=== PATIENT | female | born 1935 | race Caucasian/White ===

== ENCOUNTER 2017-11-06 13:53 | Outpatient (CLI) | payer MEDICARE, BC | END 2017-11-06 13:54 | disposition home or self-care (01) | LOC: BICMAMMO 13:53 | PROVIDERS: ATTEND Family Medicine | DX: Z13.820 Encounter for screening for osteoporosis (principal); M25.551 Pain in right hip; M51.36 Other intervertebral disc degeneration, lumbar region | CPT/HCPCS: 77080 ==

== ENCOUNTER 2017-12-11 18:11 | Emergency (ER) | payer MEDICARE, BC ==
[2017-12-11 19:40] LABS: #Basophils 0.1 thou/uL (0.0-0.2); #Eosinphils 0.4 thou/uL (0.0-0.7); #Lymphocytes 3.9 thou/uL (1.20-3.40); #Monocytes 0.8 thou/uL (0.11-0.59); #Neutrophils 9.4 thou/uL (1.40-6.50); %Basophils 0.8 % (0.0-1.0); %Eosinophils 2.7 % (0.0-10.0); %Lymphocytes 26.7 % (21.0-51.0); %Monocytes 5.7 % (0.0-10.0); Hemoglobin 13.5 g/dL (12.0-16.0); Mean Corpuscular HGB CONC 33.3 g/dL (32.0-36.0); Mean Corpuscular Hemoglobin 30.2 pg (27.0-31.0); Mean Corpuscular Volume 90.7 fL (78.0-98.0); Mean Platelet Volume 6.4 fL (7.4-10.4); Platelet Count 452 thou/uL (130-400); RBC Distribution Width 13.7 % (11.5-14.5); Red Blood Cell (RBC) Count 4.47 mill/uL (4.20-5.40); White Blood Cell (WBC) Count 14.6 thou/uL (4.8-10.8)
[2017-12-11 20:00] LABS: ALT (SGPT) 33 U/L (8-55); AST (SGOT) 49 U/L (5-34); Albumin 3.9 g/dL (3.4-4.8); Alcohol 224 mg/dL (Less than 10); Alkaline Phosphatase 86 U/L (40-150); Anion Gap 16 mmol/L (10-20); BUN (Urea Nitrogen) 24 mg/dL (9.8-20.1); Bilirubin, Total 0.4 mg/dL (0.2-1.2); Calc. Creatinine Clearance 0 mL/min (70-130); Calcium 9.5 mg/dL (7.8-10.44); Carbon Dioxide 20 mmol/L (23-31); Chloride 107 mmol/L (98-107); Estimated GFR-MDRD 57; Globulin 3.4 g/dL (2.4-3.5); Glucose 81 mg/dL (83-110); Potassium 3.2 mmol/L (3.5-5.1); Protein, Total 7.3 g/dL (6.0-8.3)
[2017-12-11 20:11] LABS: Sodium 140 mmol/L (136-145)
--- NOTE | 2017-12-11 20:13 | CT ---
CT OF THE BRAIN WITHOUT CONTRAST: 12/11/17 COMPARISON: 08/25/16 HISTORY: Slipped and fell leaning over and landed on the right side. Head trauma. TECHNIQUE: Multiple contiguous axial images were obtained in a CT of the brain without contrast. FINDINGS: There are a few scattered hypodensities in the subcortical and periventricular white matter, likely s econdary to small vessel ischemic disease. No large confluent infarction is seen. There is no evidenc e of hydrocephalus, intracranial hemorrhage or extra-axial fluid collection. The calvarium and overlying soft tissues are unremarkable. The visualized paranasal sinuses and masto id air cells are well aerated. IMPRESSION: No evidence of acute intracranial abnormality. POS: [facility]
--- NOTE | 2017-12-11 20:17 | CT ---
CT OF THE CERVICAL SPINE WITHOUT CONTRAST: 12/11/17 COMPARISON: None. HISTORY: Slipped and fell with head trauma and neck pain. TECHNIQUE: Multiple contiguous axial images were obtained in a CT of the cervical spine without contrast. Sagitt al and coronal reformats were performed. FINDINGS: There is severe degenerative changes in the cervical spine with intervertebral disc space narrowing a nd large osteophytes, predominantly anteriorly. The vertebral bodies demonstrate normal height and al ignment without acute fracture or subluxation. No prevertebral soft tissue swelling is seen. The posterior facets are well aligned. Normal alignment of the skull base with the cervical spine is seen. IMPRESSION: Degenerative changes of the cervical spine without acute osseous abnormality. POS: [facility]
--- NOTE | 2017-12-11 21:05 | RAD ---
ONE VIEW CHEST RIGHT RIB SERIES 12/11/17 HISTORY: Patient slipped while leaning over. Posttraumatic right sided rib pain. COMPARISON: None. CORRELATION: Chest radiograph 08/21/16. FINDINGS: There appear to be chronic change involving the proximal right humerus. With regard to the right ribs , no obvious fracture. Refer to right rib radiograph series listed below for further detail. Diminish ed lung volumes likely due to poor inspiratory effort. No consolidation or mass. No pneumothorax. No acute osseous abnormalities. RIGHT RIB SERIES: No fracture. No cortical irregularity. No periosteal reaction. Old right rib fracture involving the anterior right 8th rib is noted. IMPRESSION: 1. No acute cardiopulmonary process. 2. No acute right rib fracture. POS: [facility]
== END 2017-12-11 23:07 | disposition home or self-care (01) ==
LOC: ERS 18:11
DX: F10.129 Alcohol abuse with intoxication, unspecified (principal); R07.2 Precordial pain; M19.90 Unspecified osteoarthritis, unspecified site; E03.9 Hypothyroidism, unspecified; E78.5 Hyperlipidemia, unspecified; I10 Essential (primary) hypertension
CPT/HCPCS: 36415; 70450; 72125; 80053; 80307; 85025; 93005; 94760

== ENCOUNTER 2018-06-07 14:19 | Outpatient (CLI) | payer MEDICARE, BC ==
--- NOTE | 2018-06-07 15:55 | ULT ---
BILATERAL CAROTID DUPLEX ULTRASOUND: HISTORY: Carotid bruit. TECHNIQUE: Cannon-scale, color-flow, and spectral Doppler imaging of the extracranial carotid artery system is per formed bilaterally. FINDINGS: No significant plaque formation or intimal wall thickening is seen. The peak systolic velocity in the right ICA measures 70 cm per second with an end-diastolic velocity of 21 cm per second and a systolic ratio of 0.61. The peak systolic velocity in the left ICA measure s 96 cm per second with an end-diastolic velocity of 32 cm per second and a systolic ratio of 0.90. Flow in both vertebral arteries remains antegrade. IMPRESSION: No evidence of hemodynamically significant stenosis. POS: [facility]
--- NOTE | 2018-06-10 13:42 | MMO ---
Bilateral MAMMO Bilat Screen [facility]. CLINICAL HISTORY: Patient is 83 years old and is seen for screening. The patient has no family history of breast cancer. The patient has no personal history of cancer. VIEWS: The views performed were: bilateral craniocaudal with tomosynthesis and bilateral mediolateral oblique with tomosynthesis. FILMS COMPARED: The present examination has been compared to prior imaging studies performed at [facility] on 12/07/1999, 01/15/2002, 01/29/2006, 08/05/2007, 12/22/2008, 07/25/2013, 09/02/2014 and 10/07/2015. MAMMOGRAM FINDINGS: There are scattered fibroglandular densities. Benign calcifications are noted bilaterally. There are no suspicious masses, calcifications or areas of architectural distortion. IMPRESSION: FINDINGS IN BOTH BREASTS ARE BENIGN. A ROUTINE FOLLOW-UP MAMMOGRAM IN 1 YEAR IS RECOMMENDED. THE RESULTS OF THIS EXAM WERE SENT TO THE PATIENT. ACR BI-RADS Category 2 - Benign finding MAMMOGRAPHY NOTE: 1. A negative mammogram report should not delay a biopsy if a dominant of clinically suspicious mass is present. 2. Approximately 10% to 15% of breast cancers are not detected by mammography. 3. Adenosis and dense breasts may obscure an underlying neoplasm.
== END 2018-06-07 14:20 | disposition home or self-care (01) ==
LOC: BICMAMMO 14:19
PROVIDERS: ATTEND Family Medicine
DX: Z12.31 Encounter for screening mammogram for malignant neoplasm of breast (principal); R09.89 Other specified symptoms and signs involving the circulatory and respiratory systems
CPT/HCPCS: 77063; 77067; 93880

== ENCOUNTER 2018-12-27 11:33 | Inpatient (IN) | payer MEDICARE, BC ==
[2018-12-27 11:57] LABS: Bilirubin Small (Negative); Blood, Urine Negative (Negative); Glucose, Urine (Dipstick) Negative (Negative); Leukocyte Moderate (Negative); Nitrite Negative (Negative); Protein, Urine (Dipstick) Trace mg/dL (Neg-Trace)
[2018-12-27 12:05] LABS: Clarity Hazy (Clear)
[2018-12-27 12:08] LABS: Bacteria/HPF 1+ HPF (None Seen); RBC/HPF None Seen HPF (0-3); Squamous Epithelial 0-3 HPF (0-3)
--- NOTE | 2018-12-27 12:08 | RAD ---
Exam: Chest one view HISTORY:Syncope Comparison: 08/21/2016 FINDINGS: Cardiac silhouette: Normal Aorta: Unremarkable Pulmonary vessels: Normal Costophrenic angles: Clear LUNGS: No masses or consolidation. Pneumothorax: None Osseous abnormalities: Chronic changes in the proximal right humerus IMPRESSION: No acute cardiopulmonary process.
[2018-12-27] MEDS ORDERED: ISOVUE-370 76%-LOCM 1 ML ONE (12:10)
--- NOTE | 2018-12-27 13:09 | CT ---
CT HEAD WITHOUT CONTRAST: Date: 12/27/18 COMPARISON: None. HISTORY: Syncope. TECHNIQUE: Axial CT imaging at 5 mm intervals from vertex through skull base without contrast. FINDINGS: The visualized paranasal sinuses and mastoid air cells are well aerated. No displaced calvarial fract ure. No intracranial hemorrhage, midline shift, mass effect, or ventricular enlargement. Mild diffuse cerebral volume loss. IMPRESSION: No acute findings. POS: [facility]
--- NOTE | 2018-12-27 13:31 | CT ---
CERVICAL SPINE CT WITHOUT CONTRAST: Date: 12/27/18 COMPARISON: None. HISTORY: Syncope. TECHNIQUE: Axial CT imaging obtained at 2.5 mm intervals through cervical spine with coronal and sagittal reform atted imaging. FINDINGS: The imaged lung apices are unremarkable. The C1 ring appears intact. There is mild degenerative change at the atlantoaxial interspace. The occipital condyles, the dens, and the C1-2 articulation appear within normal limits. There is no significant anterolisthesis or retrolisthesis within the cervical spine. No prevertebral soft tissue swelling is noted. Evaluation for central canal and/or neural foraminal stenosis is limited on CT examination. Multilevel facet hypertrophy is noted within the cervical spine, particularly on the left at C2-3, C3 -4, and C4-5. There is disc space narrowing with degenerative end plate change and anterior osteophyte formation at C5-6 and C6-7. No acute fracture or evidence of dislocation is apparent. IMPRESSION: Multilevel cervical spine degenerative change. No acute fracture or evidence of dislocation is appare nt. POS: [facility]
[2018-12-27 13:38] LABS: #Eosinphils 0.5 thou/uL (0.0-0.7); #Lymphocytes 1.8 thou/uL (1.20-3.40); #Monocytes 0.8 thou/uL (0.11-0.59); #Neutrophils 7.8 thou/uL (1.40-6.50); %Basophils 0.4 % (0.0-1.0); %Monocytes 7.4 % (0.0-10.0); %Neutrophils 71.3 % (42.0-75.0); Hemoglobin 11.1 g/dL (12.0-16.0); Mean Corpuscular Hemoglobin 28.7 pg (27.0-31.0); Mean Platelet Volume 6.7 fL (7.4-10.4); Platelet Count 275 thou/uL (130-400); RBC Distribution Width 13.1 % (11.5-14.5); Red Blood Cell (RBC) Count 3.87 mill/uL (4.20-5.40)
[2018-12-27] MEDS ORDERED: Lidocaine 1% w/Epinephrine 1:100K 20 ML VIAL ONE (13:40)
[2018-12-27 14:00] LABS: ALT (SGPT) 16 U/L (8-55); AST (SGOT) 21 U/L (5-34); Albumin 3.4 g/dL (3.4-4.8); Alkaline Phosphatase 83 U/L (40-110); Anion Gap 13 mmol/L (10-20); BUN (Urea Nitrogen) 23 mg/dL (9.8-20.1); Bilirubin, Total 0.6 mg/dL (0.2-1.2); Calc. Creatinine Clearance 0 mL/min (70-130); Calcium 8.9 mg/dL (7.8-10.44); Carbon Dioxide 22 mmol/L (23-31); Chloride 108 mmol/L (98-107); Estimated GFR-MDRD 54; Globulin 2.2 g/dL (2.4-3.5); Glucose 90 mg/dL (83-110); Protein, Total 5.6 g/dL (6.0-8.3); Sodium 139 mmol/L (136-145)
--- NOTE | 2018-12-27 14:13 | PDOC.FPRHP ---
- History of Present Illness Chief Complaint: Syncope History of Present Illness: 83 yo F, with a PMHx of HTN, HLD, YVAN, and Hypothyroidism, presents following syncopal episode just [employer]. Pt was at [employer] [place] and while checking out she started to feel as though she was going to faint. Before she could sit down she lost consciousness and fell. Pt's caregiver witnessed the fall and stated the pt struck the back of her head and was unconscious for about 5 seconds. Pt felt dizzy and light headed after syncopal event. When the EMS sat her up off the floor she stated her lightheadedness was exacerbated where she felt faint again. Denies hx of syncopal episodes. Pt states that she did not take her daily medications yet today or have breakfast due to an early eye doctor appointment. Denies feeling unwell prior to this episode and denies any CP, SOB, palpitations. ED Course: Posterior scalp lac repaired with page x3. Head and cervical spine CT w/o acute abnormalities. CXR WNL. BUN/Cr ratio of 23. UA significant for +leukocytes , ketones, and bilirubin. Hgb 11.1 (baseline from 6mo prior = 13), Positive orthostatic BP findings. Paged at 1536 from the ED regarding decompensation of patient. She developed bradycardia and hypotension having undetectable BP readings from the ED. She was given Atropine, Epinephrine and shocked once. Patient was then intubated. Patient's pulse Pulse was palpable, but not matching with the electrical tracing per the ED physician. Central line was started and patient sent to CTA to evaluate for suspected PE. Vitals post interventions at 1558: BP 122/81, RR 24, HR 133, O2 saturation untraceable. - Allergies/Adverse Reactions Allergies Allergy/AdvReac Type Severity Reaction Status Date / Time No Known Drug Allergies Allergy Verified 08/21/16 23:54 - Home Medications Medication Instructions Recorded Confirmed Type Clobetasol Propionate [Clobetasol 1 applic TOP DAILY PRN 08/22/16 12/27/18 History Propionate 0.05% Cream] Fluconazole 150 mg PO DAILY PRN 08/22/16 12/27/18 History Ketoconazole [Ketoconazole 2% 1 applic TOP DAILY PRN 08/22/16 12/27/18 History Cream] Tolterodine Tartrate [Tolterodine 4 mg PO DAILY 08/22/16 12/27/18 History Tartrate ER] Alendronate Sodium [Fosamax] 70 mg PO Q7DAYS 12/27/18 12/27/18 History Atorvastatin Calcium [Lipitor] 1 tab PO DAILY 12/27/18 12/27/18 History Diclofenac Sodium [Diclofenac 1 gm TOP Q6H PRN 12/27/18 12/27/18 History Sodium 1% Gel] HYDROcodone Bit/APAP 5/325 [[place]] 1 tab PO Q6HR PRN 12/27/18 12/27/18 History Levothyroxine [Synthroid] 200 mcg PO DAILY 12/27/18 12/27/18 History Lisinopril/Hydrochlorothiazide 1 tab PO DAILY 12/27/18 12/27/18 History [Lisinopril-Hctz 20-25 mg Tab] Metoprolol Succinate 1 tab PO DAILY 12/27/18 12/27/18 History Nitrofurantoin Monohyd/M-Cryst 1 tab PO BID PRN 12/27/18 12/27/18 History [Macrobid 100 mg Capsule] - History PMHx: HTN, HLD, hypothyroid, urge incontinence, YVAN, osteoarthritis, osteoporosis PSHx: Cholecystectomy, tonsillectomy, right elbow surgery FHx: Brother: DM Social: Denies any tobacco or drug use, occasional glass of wine - Review of Systems General: denies: fever/chills, fatigue Eyes: denies: eye pain, vision changes ENT: denies: nasal congestion, rhinorrhea Respiratory: denies: cough, shortness of breath Cardiovascular: denies: chest pain, palpitation, edema Gastrointestinal: denies: nausea, vomiting, diarrhea, abdominal pain, GI bleeding Genitourinary: denies: dysuria, polyuria Skin: reports: lesions (occipital scalp laceration). denies: rashes Musculoskeletal: reports: pain, arthritis/arthralgias (bilateral knee pain. Back pain.). denies: tenderness, swelling Neurological: reports: syncope, weakness. denies: seizure Psychological: denies: anxiety, depression - Vital signs BP: 118/80 HR: 65 RR: 15 Tmax: 97.7 Pox: 100% on RA Wt: 67 kg PE done on original assessment of patient before major cardiac event. - Physical Exam Constitutional: NAD, awake, alert and oriented, well developed HEENT: PERRLA, EOMI, conjunctiva clear, no scleral icterus, grossly normal vision -HEENT: dry mucus membranes Neck: supple, FROM, trachea midline, no LAD, no JVD Chest: no-tender to palpation, no lesions Heart: RRR, normal S1/S2 (distant heart sounds.), no murmurs/rubs/gallops, pulses present, no edema Lungs: CTAB, no respiratory distress, good air movement, no rales/rhonchi, no wheezing Abdomen: soft, non-tender, bowel sounds present Musculoskeletal: normal structure, normal tone, ROM grossly normal Neurological: no focal deficit, CN II-XII intact, normal sensation Skin: no rash/lesions, good turgor, capillary refill <2 seconds, no jaundice -Skin: 2cm scalp laceration to occiput w/ 3 page - hemostatic Heme/Lymphatic: no unusual bruising or bleeding, no purpura, no petechia Psychiatric: normal mood and affect, good judgment and insight, intact recent and remote memory FMR H&P: Results - Labs Result Diagrams: 12/27/18 16:48 12/27/18 22:41 Lab results: WBC 11.0 thou/uL (4.8-10.8) H 12/27/18 13:23 Hgb 11.1 g/dL (12.0-16.0) L 12/27/18 13:23 Hct 33.7 % (36.0-47.0) L 12/27/18 13:23 MCV 87.0 fL (78.0-98.0) 12/27/18 13:23 Plt Count 275 thou/uL (130-400) 12/27/18 13:23 Neutrophils % 71.3 % (42.0-75.0) 12/27/18 13:23 Sodium 139 mmol/L (136-145) 12/27/18 13:23 Potassium 4.0 mmol/L (3.5-5.1) 12/27/18 13:23 Chloride 108 mmol/L (98-107) H 12/27/18 13:23 Carbon Dioxide 22 mmol/L (23-31) L 12/27/18 13:23 BUN 23 mg/dL (9.8-20.1) H 12/27/18 13:23 Creatinine 0.98 mg/dL (0.6-1.1) 12/27/18 13:23 Glucose 90 mg/dL (83-110) 12/27/18 13:23 Calcium 8.9 mg/dL (7.8-10.44) 12/27/18 13:23 Total Bilirubin 0.6 mg/dL (0.2-1.2) 12/27/18 13:23 AST 21 U/L (5-34) 12/27/18 13:23 ALT 16 U/L (8-55) 12/27/18 13:23 Alkaline Phosphatase 83 U/L (40-110) 12/27/18 13:23 Serum Total Protein 5.6 g/dL (6.0-8.3) L 12/27/18 13:23 Albumin 3.4 g/dL (3.4-4.8) 12/27/18 13:23 Urine Ketones 15 mg/dL (Negative) A 12/27/18 11:40 Urine Blood Negative (Negative) 12/27/18 11:40 Urine Nitrite Negative (Negative) 12/27/18 11:40 Ur Leukocyte Esterase Moderate (Negative) H 12/27/18 11:40 Urine RBC None Seen HPF (0-3) 12/27/18 11:40 Urine WBC 4-6 HPF (0-3) A 12/27/18 11:40 Ur Squamous Epith Cells 0-3 HPF (0-3) 12/27/18 11:40 Urine Bacteria 1+ HPF (None Seen) 12/27/18 11:40 - EKG Interpretation EKG: NRS, HR 73, QTc 425, borderline LAD, inverted T wave in precordial leads V3-5. Baseline artifact noted. - Radiology Interpretation Chest x-ray Status: report reviewed by me (No acute process) CT scan - head Status: report reviewed by me (No acute findings) Other Status: report reviewed by me (Multilevel spinal degenerative changes. No acute fracture or dislocation.) Additional comment: CT neck FMR H&P: A/P - Problem List (1) Cardiogenic shock Current Visit: Yes Status: Acute Code(s): R57.0 - CARDIOGENIC SHOCK (2) Bradycardia Current Visit: Yes Status: Acute Code(s): R00.1 - BRADYCARDIA, UNSPECIFIED (3) Arrhythmia Current Visit: Yes Status: Acute Code(s): I49.9 - CARDIAC ARRHYTHMIA, UNSPECIFIED (4) Orthostatic hypotension Current Visit: Yes Status: Acute Code(s): I95.1 - ORTHOSTATIC HYPOTENSION (5) Acute respiratory failure with hypoxia Current Visit: Yes Status: Acute Code(s): J96.01 - ACUTE RESPIRATORY FAILURE WITH HYPOXIA (6) HTN (hypertension) Current Visit: No Status: Acute Code(s): I10 - ESSENTIAL (PRIMARY) HYPERTENSION (7) Hypothyroidism Current Visit: Yes Status: Acute Code(s): E03.9 - HYPOTHYROIDISM, UNSPECIFIED (8) YVAN (obstructive sleep apnea) Current Visit: Yes Status: Acute Code(s): G47.33 - OBSTRUCTIVE SLEEP APNEA ( ADULT) (PEDIATRIC) (9) Osteoporosis Current Visit: Yes Status: Acute Code(s): M81.0 - AGE-RELATED OSTEOPOROSIS W /O CURRENT PATHOLOGICAL FRACTURE - Plan 83 y/o F admitted to inpatient CCU for suspected cardiogenic shock most likely secondary to Arrhythmia and symptomatic bradycardia. Patient being originally admitted for workup of a syncopal event that happened [employer] to the ED. 1. Symptomatic Bradycardia vs. Tachy-Thierry Syndrome - PT had episode of bradycardia while in the ED. Given atropine and epinephrine. Had run of V. Tach, shocked X1. - Intubated post bri and etomidate. - Femoral Central Line placed in ED. - Transfer to CCU. Sedation protocol, Pulmonary: Dr. Patrick, and Cardiology: Dr. Jerez consulted. Appreciate recommendations. - TSH pending - Trop initially negative - Mag, Phos pending 2. Acute Hypoxic Respiratory Failure 2/2 cardiac arrhythmia -Pt was unresponsive after bradycardia into the 30s and then subsequent v-tach. ABG showed pH 7.07, pCO2 50.9, pO2 121.7. -Concern for PE vs ACS vs cardiac arrhythmia: CTA negative for PE. -Repeat ABG in AM -CXR showed good ET tube placement 3. Shock, suspect cardiogenic -Pt with persistent hypotension in the setting of recent arrhythmias down 60s- 70s systolic -Pt currently on levophed -Echo Ordered 4. Respiratory Acidosis - On ventilator - Pulmonology to manage vent settings with subsequent ABG's in CCU 5. Syncope - Most likely cardiogenic in etiology from bradycardia vs arrhythmia. - Echo, Cards consult 6. Scalp Laceration - s/p 3 page from ED - Wound care - CT head normal 7. Normocytic Anemia - Pt baseline around 13, now with Hb 11.1. - FOBT negative. EMRE normal, no hemorrhoids. - Will check iron studies, B12, folate - Monitor 8. Orthostatic Hypotension - Pt with positive orthostatic vital signs in ED. s/p 3L NS - Will re-assess further after other acute issues resolved 9. Hypothyroidism - hold synthroid as pt is intubated and NPO - TSH Pending 10. HTN - hold home meds as currently hypotensive Code Status: Full code Code status discussed at length with the patient about her wishes if her heart were to stop or if she stopped breathing. Patient stated that she would want to have chest compressions, to be shocked, and use of medications to restart her heart. Patient stated that she would want to be intubated short term to see if recovery was possible. She stated that she would not want to be left on "life support," if the interventions were not successful. Diet: NPO VTE ppx: Lovenox GI ppx: Protonix Tubes/Lines: ET tube 12/27, R femoral CVC 12/27, OG tube 12/27 Dispo: Admit to ICU, >2 midnight stay anticipated. Intubated, Central line, on pressers. FMR H&P: Upper Level - Pertinent history 83 y/o F PMHx HTN, Hypothyroidism, HLD presents to the ED because she had a syncopal episode in [facility] today. She reports that she started feeling weak and dizzy and then passed out and hit the back of her head. She reports since arriving to the ED that she feels better. She denies any nausea, GI bleeding, fevers, palpitations. In the ED she was given 1L NS and had 3 page put in the scalp lac on the back of her head. Within a few minutes of our initial evaluation of the patient we were called back down because the patient had become bradycardic to the 30s and unresponsive. She was given epinephrine and as atropine was being drawn up she went into v-tach and was shocked x1. She then was given another dose of epinephrine and had an ET tube placed by ER resident and a central line placed by ER resident with levophed drip running. The patient was also given 2 more liters of fluids and transferred to CT scanner for stat CTA of the chest. - Pertinent findings Initial Presentation Vitals: BP: 118/80 HR: 65 RR: 15 Tmax: 97.7 Pox: 100% on RA Wt: 67 kg Initial PE: Gen - alert, oriented x3, NAD HEENT - MMM, 2.5cm posterior scalp lac that was hemostatic with [address], eyes with horizontal nystagmus upon turning to left CV - RRR, no murmurs Resp - CTAB, no wheezes Abd - soft, NTTP, non-distended Ext - no cyanosis or edema Labs: Hb 11.1, WBC 11.0, BUN 23, Cr 0.98, GFR 54, Trop < 0.01 EKG - rate 73, NSR Brain CT - No acute process, Spine CT - No acute process with degenerative changes, CXR - No acute process. Repeat Evaluation Vitals: BP: 122/81, Pulse: 133, Resp: 24 on levophed PE: Gen - intubated, sedated CV - tachycardic, regular rhythm Resp - on ventilator Abd - non-distended Skin - pale Ext - no edema Repeat labs: pending - Plan Date/Time: 12/27/18 1412 I, Arlin Ding MD, PGY-3, have evaluated this patient and agree with findings/ plan as outlined by internet database specialist resident. Pertinent changes/additions are listed here. Acute Hypoxic Respiratory Failure 2/2 cardiac arrhythmia Pt did not resume normal mentation after bradycardia into the 30s and then subsequent v-tach. She was intubated in the ED and given etomidate and rocuronium. ABG showed pH 7.07, pCO2 50.9, pO2 121.7. Concern for PE vs ACS vs cardiac arrhythmia -Will admit to ICU -Pulm consulted, appreciate recs -Sedation protocol -Repeat ABG in AM -CXR showed good ET tube placement Shock, suspect cardiogenic Pt with persistent hypotension in the setting of recent arrhythmias down 60s- 70s systolic -Cards consulted, appreciate recs -Pt on levophed, will continue this -Echo Bradycardia concerning for tachy-thierry syndrome Pt with bradycardia into the 30s and subsequent v-tach. Concerning that this is the cause of her syncopal episode -Cards consulted, appreciate recs -Monitor with cardiac monitoring -Echo -TSH -Trop -Mag, Phos Respiratory Acidosis Now on ventilator -Will defer to pulm to manage vent settings with subsequent ABG's Syncope Likely 2/[address] head normal. -Plan as above Scalp Laceration s/p 3 page -Wound care Normocytic Anemia Pt baseline around 13, now with Hb 11.1. FOBT negative. -Will check iron studies, B12, folate -Monitor Orthostatic Hypotension Pt with positive orthostatic vital signs in ED. s/p 3L NS -Will re-assess further after other acute issues resolved Hypothyroidism -Will hold home synthroid as intubated and NPO -Check TSH HTN -Will hold home meds as currently hypotensive Diet: NPO Dispo: Admit to ICU LOS: likely 2-4 days VTE ppx: Lovenox GI ppx: Protonix Tubes/Lines: ET tube 12/27, R femoral CVC 12/27, OG tube 12/27 Addendum - Attending - Attending Attestation Date/Time: 12/28/18 0047 I personally evaluated the patient and discussed the management with Dr. Rice at time of admission in the ER. I agree with the History, Examination, Assessment and Plan documented above with any addition or exceptions noted below. at about 4pm, following assessment and plan to admit to telemetry, I was called to the ER at the request of the ER attending. Resuscitation in progress. Patient had episode of bradycardia with hypotension and unresponsiveness. Patient treated by ER physicians and staff with epinephrine, bicarb. ET tube placed. CVC placed in femoral vein placed. CTA ngative for PE. Intermittent thierry and tachy arrhythmias noted during resuscitation. Patient's brother, Bernabe , was called and condition and care plan discussed. He was also able to speak to our pyrometallurgical engineer on the phone. Ms. Mao was stabilized with levophed drip. Labs drawn. Patient admitted to CCU. Brother was again updated and he was grateful for her care.
[2018-12-27] MEDS ORDERED: Atropine Sulfate 1 mg/10 ml Syringe ONE (15:29)
[2018-12-27] MEDS ORDERED: Succinylcholine Chloride 20 MG/ML 10 ml SYRINGE FS ONE (15:39)
[2018-12-27] MEDS ORDERED: Rocuronium Bromide 10 MG/ML (10ML VIAL) ONE ×2 (15:39→15:40)
[2018-12-27] MEDS ORDERED: cefTRIAXone\\ROCEPHIN 2 GM VIAL ONE (15:40)
[2018-12-27] MEDS ORDERED: Norepinephrine 4 MG/4 ML VIAL ONE (15:50)
[2018-12-27 15:56] LABS: Actual Bicarbonate (HCO3a) 14.4 mEq/L (22-28); Analyzer IN Cardio ER; Base Excess (BEa) -15.5 mEq/L (-2.0 to +3.0); CO2 Tension 50.9 mmHg (35.0-45.0); Hemoglobin (Hb) 11.9 g/dL (12.0-16.0); O2 Tension (PaO2) 121.7 mmHg (> 60.0); Potassium - ABG Lab 3.25 mmol/L (3.70-5.30)
[2018-12-27 16:03] LABS: ALV-art Gradient 242.475 (0-20); Puncture Site RRA; pH, Arterial 7.07 (7.35-7.45)
--- NOTE | 2018-12-27 16:21 | RAD ---
EXAM: CHEST ONE VIEW HISTORY: Post intubation COMPARISON: 12/27/2018 at 1142 hours. FINDINGS: There has been interval placement of an endotracheal tube with tip overlying the T4-5 level and above the level of the hero. Nasogastric tube has also been placed in the interim which courses into the left upper quadrant. Pacing pad overlies the right shoulder. Cardiac silhouette and pulmonary vas culature are within normal limits. Lungs are clear. Vascular calcifications are seen in the thoracic aorta. Chronic deformity right humeral head is again seen. IMPRESSION: 1. Interval placement of endotracheal tube and nasogastric tube. Lungs remain clear.
--- NOTE | 2018-12-27 16:43 | CT ---
CT Brain WO Con: 12/27/2018 4:21 PM CLINICAL HISTORY: Fall with altered mental status. IMAGING TECHNIQUE: Multiple CT images were obtained of the brain without IV contrast. COMPARISON: Prior exam dated December 27, 2018 12:51 PM FINDINGS: Infarct: No acute infarct evident. Hemorrhage: None.. Hydrocephalus: None.. Basal cisterns: Normal.. Cerebral parenchyma: Normal.. Midline shift: None.. Cerebellum: Normal. Brainstem: Normal. OTHER: Calvarium: Intact.. Visualized Paranasal sinuses: Clear.. Extracranial soft tissues:There is soft tissue gas overlying the left temporal region suspicious for the presence of a laceration in this region. IMPRESSION: No acute intracranial abnormality. Suspected soft tissue laceration within the left temporal region.
--- NOTE | 2018-12-27 16:53 | CT ---
CTA Angio Chest W WO Con 12/27/2018 4:21 PM Indication: History of syncopal episode prior to arrival now unresponsive Technique: Multiple CTA images were obtained of the thorax with IV contrast. 3D reformatted images were constructed from the raw data. Comparison: Prior CT PE evaluation dated August 21, 2016. Findings: Pulmonary arteries: Mild motion artifact slightly limits image detail or segmental pulmonary arteria l branches. No definite central pulmonary embolus is evident. Heart and Great Vessels: There is mild cardiomegaly with mild mitral annular calcification. There ar e mild vascular calcifications involving thoracic aorta. Lungs:There is bibasilar airspace consolidation suspicious for aspiration. Patient is intubated with gastric catheter placement. Pleural space: Clear. Upper Abdomen: No acute abnormality. Osseous Structures: There is an age-indeterminate superior endplate compression fracture T5 which is been interval development since 2016. This was likely present on the comparison PA chest radiograph and right rib series dated December 11, 2017. Impression: No definite central pulmonary embolus demonstrated. Respiratory motion artifact slightly limits image detail the segmental pulmonary branches. Bibasilar airspace consolidation suspicious for aspiration. Interval remote superior endplate compression abnormality at T5.
[2018-12-27 17:11] LABS: Base Excess-Venous -6.7 mmol/L (-2.0 to 3.0); Bicarbonate (HCO3v) 16.7 mmol/L (22.0-28.0); Calcium, Ionized 0.97 mmol/L (See Comments:); Chloride 112 mmol/L (98-107); Potassium 2.7 mmol/L (3.5-5.1); Sodium 144 mmol/L (138-145); T. Carbon Dioxide 17.5 mmol/L (22.0-28.0); vO2 Saturation-calc 97.4 % (60.0-85.0)
[2018-12-27 17:11] LABS: #Basophils 0.1 thou/uL (0.0-0.2); #Eosinphils 0.2 thou/uL (0.0-0.7); #Lymphocytes 2.7 thou/uL (1.20-3.40); #Monocytes 0.5 thou/uL (0.11-0.59); #Neutrophils 12.7 thou/uL (1.40-6.50); %Basophils 0.3 % (0.0-1.0); %Eosinophils 1.5 % (0.0-10.0); %Lymphocytes 16.4 % (21.0-51.0); %Monocytes 3.3 % (0.0-10.0); %Neutrophils 78.5 % (42.0-75.0); Hemoglobin 10.1 g/dL (12.0-16.0); Mean Corpuscular HGB CONC 32.9 g/dL (32.0-36.0); Mean Corpuscular Hemoglobin 28.3 pg (27.0-31.0); Mean Corpuscular Volume 86.1 fL (78.0-98.0); Mean Platelet Volume 7.1 fL (7.4-10.4); Platelet Count 319 thou/uL (130-400); RBC Distribution Width 13.2 % (11.5-14.5); Red Blood Cell (RBC) Count 3.58 mill/uL (4.20-5.40); White Blood Cell (WBC) Count 16.2 thou/uL (4.8-10.8)
[2018-12-27 17:13] LABS: INR-International Normal Ratio 1.2; PTT 26.5 SEC (22.9-36.1); Prothrombin Time 15.1 SEC (12.0-14.7)
[2018-12-27] MEDS ORDERED: Ventilator Sedation Protocol 1 EACH FS SCH (17:15)
[2018-12-27 17:21] LABS: Phosphorus 3.2 mg/dL (2.3-4.7)
[2018-12-27] MEDS ORDERED: Fentanyl BOLUS 250 ML IVPB PRN (17:24)
[2018-12-27] MEDS ORDERED: Propofol 1,000 MG/100 ML VIAL IV PRN (17:24)
[2018-12-27] MEDS ORDERED: fentaNYL Citrate/PF 2,000 MCG in Sodium Chloride 0.9% 60 ML IV SCH (17:24)
[2018-12-27] MEDS ORDERED: Morphine 2 MG/ML SYRINGE SLOW IVP PRN (17:24)
[2018-12-27] MEDS ORDERED: Propofol BOLUS 1,000 MG/100 ML VIAL IV PRN (17:24)
[2018-12-27] MEDS ORDERED: Lorazepam 2 MG/ML VIAL SLOW IVP PRN (17:24)
[2018-12-27] MEDS ORDERED: DISCONTINUE PREVIOUS NARCOTIC PAIN MEDICATIONS AND BENZODIAZEPINES FS SCH (17:24)
[2018-12-27 17:28] LABS: ALT (SGPT) 196 U/L (8-55); AST (SGOT) 272 U/L (5-34); Albumin 2.6 g/dL (3.4-4.8); Alkaline Phosphatase 152 U/L (40-110); Anion Gap 16 mmol/L (10-20); BUN (Urea Nitrogen) 22 mg/dL (9.8-20.1); Bilirubin, Total 0.7 mg/dL (0.2-1.2); Calc. Creatinine Clearance 0 mL/min (70-130); Calcium 7.7 mg/dL (7.8-10.44); Carbon Dioxide 18 mmol/L (23-31); Chloride 109 mmol/L (98-107); Estimated GFR-MDRD 48; Globulin 2.1 g/dL (2.4-3.5); Glucose 277 mg/dL (83-110); Magnesium 1.6 mg/dL (1.6-2.6); Protein, Total 4.7 g/dL (6.0-8.3); Sodium 140 mmol/L (136-145); Troponin I 0.138 ng/mL (< 0.028)
[2018-12-27 17:31] LABS: Potassium 2.7 mmol/L (3.5-5.1)
[2018-12-27] MEDS: Norepinephrine 8 MG in Dextrose 5% in Water 242 ML IVPB PRN (18:00)
[2018-12-27] MEDS ORDERED: Acetaminophen 325 MG TAB PO PRN (18:21)
[2018-12-27] MEDS ORDERED: Ondansetron PF 4 MG/2 ML Vial IVP PRN (18:21)
[2018-12-27] MEDS ORDERED: Ondansetron ODT 4 MG TAB PO PRN (18:21)
[2018-12-27] MEDS: Lactated Ringer's 1,000 ML IV SCH (18:39)
[2018-12-27] MEDS ORDERED: Magnesium Sulfate 3 GM in Sodium Chloride 0.9% 100 ML IVPB SCH (18:45)
[2018-12-27] MEDS ORDERED: CCU Electrolyte Replacement 1 EACH FS ONE (18:48)
[2018-12-27] MEDS ORDERED: Magnesium Oxide 400 MG TAB PO PRN ×2 (18:54)
[2018-12-27] MEDS ORDERED: PHOS-NAK 1 PKT PACK PO PRN ×2 (18:54)
[2018-12-27] MEDS ORDERED: Potassium Phosphate 12 MMOL in Sodium Chloride 0.9% 250 ML 250 ML IV PRN (18:54)
[2018-12-27] MEDS ORDERED: Potassium Phosphate 9 MMOL in Sodium Chloride 0.9% 100 ML IVPB PRN (18:54)
[2018-12-27] MEDS ORDERED: Magnesium 2 GM/50 ML 2 GM in Premix Bag 1 BAG IVPB PRN (18:54)
[2018-12-27] MEDS ORDERED: CCU ELECTROLYTE REPLACEMENT PROTOCOL FS PRN (18:54)
[2018-12-27] MEDS ORDERED: Potassium Chloride 40 MEQ in Premix Bag 1 BAG IVPB PRN (18:54)
[2018-12-27] MEDS ORDERED: Potassium Chloride 20 MEQ TAB PO PRN (18:54)
[2018-12-27] MEDS ORDERED: Potassium Chloride 40 MEQ in Sodium Chloride 0.9% 250 ML 250 ML IVPB PRN (18:54)
[2018-12-27] MEDS ORDERED: Potassium Phosphate 15 MMOL in Sodium Chloride 0.9% 250 ML 250 ML IV PRN (18:54)
--- NOTE | 2018-12-27 19:11 | CON ---
DATE OF CONSULTATION: 12/27/2018 TIME SPENT: 35 minutes critical care time. CONSULTING PHYSICIAN: [facility]. REASON FOR CONSULTATION: Cardiac arrest and subsequent endotracheal intubation. HISTORY OF PRESENT ILLNESS: The patient is an 83-year-old female who presented to the emergency room earlier today after some type of fall at home and some transient hypotension. She underwent a brain CT, which showed no acute abnormality except for some bruising. She subsequently experienced a bradycardic spell in the ER. She became hypotensive again. She was intubated. She developed ventricular tachycardia. She was shocked once. I am told she was given etomidate and rocuronium for the intubation. She is currently on mechanical ventilation. She is not responsive, but she may still be paralyzed. PAST MEDICAL HISTORY: 1. Osteoarthritis. 2. YVAN. 3. Hypothyroidism. 4. Hyperlipidemia. 5. Hypertension. PAST SURGICAL HISTORY: Right elbow surgery, appendectomy, cholecystectomy, tonsillectomy. PSYCHIATRIC HISTORY: Unremarkable. SOCIAL HISTORY: Nonsmoker. Does not consume alcohol. FAMILY MEDICAL HISTORY: Unknown. MEDICATIONS: Prior to admission: 1. Atorvastatin. 2. Levothyroxine. 3. Losartan/hydrochlorothiazide. 4. Detrol LA. 5. Fosamax. 6. Clobetasol. 7. Ketoconazole. 8. Diflucan. REVIEW OF SYSTEMS: Cannot be obtained as the patient is currently on mechanical ventilation. ALLERGIES: NONE. PHYSICAL EXAMINATION: VITAL SIGNS: Temperature 95.7, respiratory rate 24, blood pressure 114/73, pulse 109, O2 saturation 97% on mechanical ventilation. NEUROLOGICAL: She will not withdraw to painful stimuli. HEENT: Her pupils are reactive, 5 mm and 2 mm briskly. HEENT is otherwise unremarkable. NECK: No JVD. LUNGS: Clear without wheezing or rhonchi. CARDIAC: S1 and S2, regular. Tachycardic. No murmur. ABDOMEN: Soft. No hepatosplenomegaly. EXTREMITIES: No clubbing, cyanosis, or edema. IMAGING STUDIES: CT pulmonary angiogram showed no evidence of pulmonary emboli. There were some subtle infiltrative changes in the bases. LABORATORY DATA: White blood cell count 16.2, hematocrit 30.8, and platelet count 319. INR 1.2. PH of 7.41, pCO2 26, PO2 91 on SIMV rate 16, tidal volume 500, PEEP 5, pressure support 10, FiO2 60%. Sodium 144, potassium 2.7, chloride 112, CO2 of 18, BUN 22, creatinine 1.1, glucose 277, lactate 6.3, AST 272, ALT 196. ASSESSMENT: 1. Status post cardiac arrest secondary to bradycardia. Suggest possible electrical problem with the heart. 2. Two syncopal episodes today, also suggesting cardiac etiology. 3. Status post fall to the head with no deep trauma that can be detected. 4. Electrolyte abnormalities including hypokalemia and transaminitis. PLAN: 1. Keep the patient intubated overnight. 2. Because she was given etomidate for induction, I would go ahead and put her on some hydrocortisone since etomidate is associated with adrenal insufficiency. 3. Would put her on electrolyte replacement protocol and recheck her potassium later tonight. Supplement as needed. 4. Follow serial ABGs. 5. Extubate when she awakens. Job ID: [id number]
--- NOTE | 2018-12-27 19:43 | CON ---
DATE OF CONSULTATION: 12/27/2018 REASON FOR CONSULTATION: Thierry arrest and syncope. HISTORY OF PRESENT ILLNESS: Ms. Mao is an 83-year-old white female, who comes to the hospital after a syncopal spell. Apparently, she was at [employer] and felt faint and before she could sit down, she lost consciousness, fell, hit the back of her head and was unconscious for about 5 seconds. She woke up, felt a little lightheaded. EMS came and stood her up and she was lightheaded when standing up, so they started her on fluids thinking she was just orthostatic. She was brought in for evaluation. In the ER, she had a negative blood test. Cervical, spine, and head CTs were all unremarkable. Chest x-ray was normal. Her orthostatic vital signs were positive, and she had a hemoglobin of 11.1 with a baseline of 13. She then was being admitted and had an episode of bradycardia and cardiac arrest. She was coded for a brief moment where she was given initially atropine and epinephrine. Eventually, she became tachycardic and once shock was delivered, she eventually was intubated and transferred to the ICU for further evaluation. On my evaluation Ms. Mao remains intubated and unresponsive. PAST MEDICAL HISTORY: 1. Hypertension. 2. Hyperlipidemia. 3. Hypothyroidism. 4. Urge incontinence. 5. YVAN. 6. Osteoarthritis. 7. Osteoporosis. PAST SURGICAL HISTORY: 1. Cholecystectomy. 2. Tonsillectomy. 3. Right elbow surgery. FAMILY HISTORY: No early coronary artery disease from chart review. SOCIAL HISTORY: No tobacco or drugs. Social alcohol use, mostly an occasional glass of wine. OUTPATIENT MEDICATIONS: 1. Clobetasol cream. 2. Fluconazole 150 mg a day. 3. Ketoconazole cream. 4. Tolterodine tartrate ER. 5. Fosamax. 6. Lipitor. 7. Diclofenac gel p.r.n. 8. Butterfield 5/325 q.6 hours p.r.n. pain. 9. Synthroid 200 mcg a day. 10. Lisinopril/hydrochlorothiazide 20/25 mg a day. 11. Metoprolol succinate p.o. daily. 12. Nitrofurantoin. ALLERGIES: NO KNOWN DRUG ALLERGIES. REVIEW OF SYSTEMS: Unobtainable as the patient is intubated. PHYSICAL EXAMINATION: VITAL SIGNS: Blood pressure currently at 89/62, respiratory rate 16, temperature 97.7, pulse 116, saturating 98% on 50% FiO2. GENERAL: Intubated. HEENT: Normocephalic. Jann on the back of her head. NECK: Supple. LUNGS: Clear. CARDIOVASCULAR: S1 and S2. No S3 or S4. Tachycardic. ABDOMEN: Soft. Positive bowel sounds. EXTREMITIES: No edema. SKIN: Warm and dry. LABORATORY DATA: Reviewed. CBC with a white count of 11, up to 16; hemoglobin 11.1 on admission, down to 10.1 now, baseline of 12 to 13; hematocrit of 30. Coags were reviewed. ABG was reviewed. PH is 7.07. Chemistry with a potassium of 2.7, chloride of 109, carbon dioxide of 18, BUN of 22, creatinine of 1.1, GFR of 48, glucose of 277. Lactic acid was 6.3. Calcium was 7.7, ionized calcium at 0.97, phosphorus is 3.2, magnesium 1.6, total bilirubin 0.7, AST 272, ALT 196, and alkaline phosphatase 152. Troponin-I 0.138 second draw, first draw was undetectable. Albumin of 2.6. BNP of 23. UA; 15 ketones, small bilirubin, 4.0 urobilinogen, moderate leukocyte esterase, and 4 to [address] of the chest showed no evidence of pulmonary embolism. Bibasilar airspace consolidation suspicious for aspiration. Remote superior endplate compression abnormality of T5. CT of the brain repeat after initial evaluation showed no acute intracranial abnormality. Soft tissue laceration within the left temporal region. ASSESSMENT AND PLAN: 1. Pulseless electrical activity, bradycardic arrest. 2. Syncope, likely related to bradycardia as well. 3. Possible aspiration pneumonia. 4. Anemia, new onset. 5. Possible cardiogenic shock. 6. Possible septic shock. 7. Acute hypoxic respiratory insufficiency. 8. Likely, shock liver, post-resuscitation. PLAN: 1. We will wait for neurological recovery. 2. At this time, if she were to recover and there is no other cause for her episode, she will most likely need a pacemaker at that time. However, at this point, there is no indication for pacemaker. She is on Levophed and she is actually tachycardic. 3. We would replace her potassium aggressively to try to keep it above 3.5. 4. The patient is severely ill and would not be unexpected. Thank you for letting us to participate in the care of your patient. We will follow. 45 minutes of critical care time. Job ID: [id number]
[2018-12-27 20:14] LABS: Iron 47 ug/dL (50-170); Iron Binding Capacity, Total 175 mcg/dL (265-497)
[2018-12-27 20:20] LABS: Actual Bicarbonate (HCO3a) 15.9 mEq/L (22-28); Base Excess (BEa) -3.6 mEq/L (-2.0 to +3.0); Calcium, Ionized 1.06 mmol/L (1.12-1.30); Carboxyhemoglobin (COHb) 0.3 gm% (0.0-3.0); Hemoglobin (Hb) 12.3 g/dL (12.0-16.0); O2 Tension (PaO2) 211.5 mmHg (> 60.0); Potassium - ABG Lab 2.35 mmol/L (3.70-5.30)
[2018-12-27] MEDS: Hydrocortisone Sod Succ/PF 50 MG in Sodium Chloride 0.9% 50 ML IVPB SCH (20:25)
[2018-12-27 20:27] LABS: CO2 Tension 17.4 mmHg (35.0-45.0); Puncture Site RBRACH; pH, Arterial 7.58 (7.35-7.45)
[2018-12-27 20:27] LABS: Troponin I 1.501 ng/mL (< 0.028)
[2018-12-27 21:14] LABS: Ferritin 2202.65 ng/mL (10-291)
[2018-12-27 21:18] LABS: Lactic Acid 4.6 mmol/L (0.5-2.2)
[2018-12-27 23:21] LABS: ALT (SGPT) 218 U/L (8-55); AST (SGOT) 254 U/L (5-34); Alkaline Phosphatase 175 U/L (40-110); Anion Gap 16 mmol/L (10-20); BUN (Urea Nitrogen) 23 mg/dL (9.8-20.1); Bilirubin, Total 0.7 mg/dL (0.2-1.2); Calc. Creatinine Clearance 43 mL/min (70-130); Calcium 8.3 mg/dL (7.8-10.44); Carbon Dioxide 18 mmol/L (23-31); Chloride 111 mmol/L (98-107); Estimated GFR-MDRD 49; Globulin 2.5 g/dL (2.4-3.5); Glucose 169 mg/dL (83-110); Potassium 3.1 mmol/L (3.5-5.1); Protein, Total 5.5 g/dL (6.0-8.3); Sodium 142 mmol/L (136-145)
[2018-12-28] MEDS: Hydrocortisone Sod Succ/PF 50 MG in Sodium Chloride 0.9% 50 ML IVPB SCH ×3 (02:15→21:47)
[2018-12-28] MEDS: Lactated Ringer's 1,000 ML IV SCH ×2 (03:34→09:29)
[2018-12-28 04:28] LABS: Free T4 (Free Thyroxine) 1.58 ng/dL (0.70-1.48)
[2018-12-28 04:45] LABS: #Lymphocytes 0.8 thou/uL (1.20-3.40); #Monocytes 0.7 thou/uL (0.11-0.59); #Neutrophils 17.3 thou/uL (1.40-6.50); %Basophils 0.2 % (0.0-1.0); %Eosinophils 0.2 % (0.0-10.0); %Lymphocytes 4.4 % (21.0-51.0); %Monocytes 3.8 % (0.0-10.0); %Neutrophils 91.5 % (42.0-75.0); Hemoglobin 10.1 g/dL (12.0-16.0); Mean Corpuscular HGB CONC 33.5 g/dL (32.0-36.0); Mean Corpuscular Hemoglobin 28.7 pg (27.0-31.0); Mean Corpuscular Volume 85.6 fL (78.0-98.0); Mean Platelet Volume 6.9 fL (7.4-10.4); Platelet Count 341 thou/uL (130-400); RBC Distribution Width 13.5 % (11.5-14.5); Red Blood Cell (RBC) Count 3.53 mill/uL (4.20-5.40); White Blood Cell (WBC) Count 18.9 thou/uL (4.8-10.8)
[2018-12-28 05:04] LABS: ALT (SGPT) 178 U/L (8-55); AST (SGOT) 174 U/L (5-34); Albumin 2.9 g/dL (3.4-4.8); Alkaline Phosphatase 145 U/L (40-110); Anion Gap 14 mmol/L (10-20); BUN (Urea Nitrogen) 25 mg/dL (9.8-20.1); Bilirubin, Total 0.5 mg/dL (0.2-1.2); Calc. Creatinine Clearance 43 mL/min (70-130); Carbon Dioxide 21 mmol/L (23-31); Chloride 113 mmol/L (98-107); Estimated GFR-MDRD 48; Globulin 2.2 g/dL (2.4-3.5); Glucose 156 mg/dL (83-110); Potassium 4.5 mmol/L (3.5-5.1); Protein, Total 5.1 g/dL (6.0-8.3); Sodium 143 mmol/L (136-145)
[2018-12-28 06:37] LABS: Troponin I 3.717 ng/mL (< 0.028)
[2018-12-28 06:39] LABS: Lactic Acid 1.9 mmol/L (0.5-2.2)
--- NOTE | 2018-12-28 07:26 | RAD ---
CHEST ONE VIEW: INDICATIONS: Pneumonia. COMPARISON: Prior exam dated 12/27/2018. IMPRESSION: ET tube and gastric catheter are unchanged. No definite consolidation is noted. No pleural effusion o r pneumothorax is demonstrated. POS: BH
[2018-12-28 07:45] LABS: Actual Bicarbonate (HCO3a) 19.2 mEq/L (22-28); Base Excess (BEa) -3.2 mEq/L (-2.0 to +3.0); CO2 Tension 26.1 mmHg (35.0-45.0); Calcium, Ionized 1.12 mmol/L (1.12-1.30); Carboxyhemoglobin (COHb) 0.5 gm% (0.0-3.0); Hemoglobin (Hb) 10.2 g/dL (12.0-16.0); O2 Tension (PaO2) 116.5 mmHg (> 60.0); Potassium - ABG Lab 4.05 mmol/L (3.70-5.30); pH, Arterial 7.49 (7.35-7.45)
[2018-12-28 07:52] LABS: ALV-art Gradient 136.075 (0-20); Puncture Site RRA
--- NOTE | 2018-12-28 07:57 | PDOC.EVN ---
Addendum - Attending - Attending Attestation Date/Time: 12/28/18 [id number] I personally evaluated the patient and discussed the management with Dr. Ding. I agree with the History, Examination, Assessment and Plan documented in her electronic progress note with any addition or exceptions noted below. Patient admitted yesterday for syncope and subsequently had LOC and cardiac arrest for a short time in the ED after becoming bradycardic. Her history sounds suspicious for tachy-christie syndrome. She is alert and able to nod her head in response to questions this morning. No focal neuro deficits. She continues to be intubated but I suspect she may tolerated extubation well this morning. Cardiology on board. No major telemetry events overnight. She continues on pressors. She will need full cardiac eval as this entire presentation is consistent with some sort of cardiac pathology. Labs overall improved from overnight. Further mgmt pending specialist input.
[2018-12-28] MEDS: Pantoprazole 40 MG VIAL IVP SCH (08:37)
--- NOTE | 2018-12-28 09:22 | PRG ---
DATE OF SERVICE: 12/28/2018 TIME SPENT: This is 35 minutes of critical care time. SUBJECTIVE: The patient is awake, alert, follows commands while on mechanical ventilation. OBJECTIVE: VITAL SIGNS: On exam, temperature is 98.0, pulse 83, blood pressure 103/67, and O2 saturation 100%. A 24-hour intake 1991, output 313. HEENT: Unremarkable. NECK: No JVD. LUNGS: Coarse breath sounds. CARDIAC: S1 and S2. Regular. ABDOMEN: Soft and nontender. EXTREMITIES: No edema. LABORATORY DATA: ABG; pH of 7.49, pCO2 of 26, pO2 of 116 on SIMV rate 14, tidal volume 500, PEEP 5, pressure support 10, and FiO2 of 40%. White blood cell count 18.9, hematocrit 30, and platelet count 341. Sodium 143, potassium 4.5, chloride 113, CO2 of 21, BUN 25, creatinine 1.1, glucose 156, AST 174, ALT 178, troponin 3.71, albumin 2.9. IMAGING DATA: Chest x-ray shows no obvious abnormalities other than the endotracheal tube, which is in good position. ASSESSMENT: 1. Status post respiratory arrest related to a bradycardic episode. This may have been exacerbated by severe hypokalemia at the time of admission. 2. Status post 2 syncopal episodes yesterday. 3. Acute respiratory failure, requiring mechanical ventilation. PLAN: I think she is probably stable enough to extubate. We will have a transcutaneous pacer available if needed for bradycardic episodes. We could also use dopamine if needed. Job ID: [id number]
--- NOTE | 2018-12-28 10:17 | PDOC.FM ---
- Subjective Subjective: Patient awoken to pain and loud sounds this morning on the ventilator. Nodded no to questions about pain. Resting comfortably. - Objective MAR Reviewed: Yes Vital Signs & Weight: Vital Signs (12 hours) Temp Pulse Resp BP Pulse Ox 12/28/18 09:06 79 15 99 12/28/18 08:00 16 12/28/18 07:17 100 12/28/18 07:06 73 93/53 L 12/28/18 07:00 98.0 F 12/28/18 06:00 14 12/28/18 04:00 99.4 F 14 12/28/18 02:06 83 12/28/18 02:00 14 12/28/18 00:00 99.0 F 16 12/27/18 22:48 98 Weight Weight 66.6 kg Most Recent Monitor Data Heart Rate from ECG 78 NIBP 97/47 NIBP BP-Mean 63 Respiration from ECG 15 SpO2 100 I&O: 12/27/18 12/28/18 12/29/18 06:59 06:59 06:59 Intake Total 1991.1 548 Output Total 313 60 Balance 1678.1 488 Result Diagrams: 12/28/18 04:10 12/28/18 03:30 Phys Exam - Physical Examination Constitutional: NAD HEENT: moist MMs, sclera anicteric Respiratory: no wheezing, no rales, no rhonchi, clear to auscultation bilateral Cardiovascular: RRR, no significant murmur, no rub Gastrointestinal: soft, non-tender, no distention, positive bowel sounds Musculoskeletal: no edema, pulses present Neurological: non-focal, moves all 4 limbs Skin: normal turgor, cap refill <2 seconds Dx/Plan (1) Orthostatic hypotension Code(s): I95.1 - ORTHOSTATIC HYPOTENSION Status: Acute (2) Arrhythmia Code(s): I49.9 - CARDIAC ARRHYTHMIA, UNSPECIFIED Status: Acute (3) Bradycardia Code(s): R00.1 - BRADYCARDIA, UNSPECIFIED Status: Acute (4) Acute respiratory failure with hypoxia Code(s): J96.01 - ACUTE RESPIRATORY FAILURE WITH HYPOXIA Status: Acute (5) Cardiogenic shock Code(s): R57.0 - CARDIOGENIC SHOCK Status: Acute (6) Hypothyroidism Code(s): E03.9 - HYPOTHYROIDISM, UNSPECIFIED Status: Acute (7) HTN (hypertension) Code(s): I10 - ESSENTIAL (PRIMARY) HYPERTENSION Status: Acute - Plan Plan: Acute Hypoxic Respiratory Failure 2/2 cardiac arrhythmia Pt did not resume normal mentation after bradycardia into the 30s and then subsequent v-tach. She was intubated in the ED and given etomidate and rocuronium. ABG showed pH 7.07, pCO2 50.9, pO2 121.7. Subsequent ABG showed pH 7.58, pCO2 17.4. Rate slowed down and repeat this AM showed pH 7.49, pCOD 26.1. 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 Concerning that this is the cause of her syncopal episode -Cards consulted, appreciate recs -Monitor with cardiac monitoring -Echo NSTEMI Type 2 Likely 2/2 demand ischemia in the setting of recent defibrillation and hypoperfusion. Pt had initial negative trop and no signs of new ischemia on admission EKG or chest pain. -Cards on board, will defer to them for further management Shock Liver Pt with elevation in LFT's that are now downtrending, likely 2/2 period of hypoperfusion now improving -Monitor Syncope Likely 2/[address] head normal. -Plan as above Scalp Laceration s/p 3 page -Wound care Normocytic Anemia 2/2 anemia of chronic disease Pt baseline around 13, admission Hb 11.1. Iron studies consistent with anemia of chronic disease. FOBT negative. -Monitor Orthostatic Hypotension Pt with positive orthostatic vital signs in ED. s/p 3L NS -Will re-assess further after other acute issues resolved Hypothyroidism TSH low, may need to adjust home synthroid dose -Will hold home synthroid as intubated and NPO HTN -Will hold home meds as currently hypotensive Diet: NPO Dispo: Continue care in ICU LOS: likely 2-4 days VTE ppx: Lovenox GI ppx: Protonix Tubes/Lines: ET tube 12/27, R femoral CVC 12/27, OG tube 12/27
--- NOTE | 2018-12-28 13:13 | PDOC.CPN ---
- Subjective Date: 12/28/18 Time: 13:10 Interval history: She is fully awake now and was extubated earlier today. She denies any chest pain, tightness, pressure, SOB. - Review of Systems General: denies: fever/chills, weight/appetite/sleep changes, night sweats, fatigue Respiratory: denies: cough, congestion, shortness of breath, exercise intolerance Cardiovascular: denies: chest pain, palpitation, edema, paroxysmal nocturnal dyspnea, orthopnea Gastrointestinal: denies: nausea, vomiting, diarrhea, constipation, abd pain, GI bleeding Musculoskeletal: reports: pain. denies: tenderness, stiffness, swelling, arthritis/arthralgias Neurological: denies: numbness, syncope, seizure, weakness - Objective Allergies/Adverse Reactions: Allergies Allergy/AdvReac Type Severity Reaction Status Date / Time No Known Drug Allergies Allergy Verified 08/21/16 23:54 Visit Medications: Current Medications Acetaminophen (Tylenol) 650 mg PO Q4H PRN PRN Reason: Headache/Fever/Mild Pain (1-3) Enoxaparin Sodium (Lovenox) 40 mg SC 0900 JIM Fentanyl Citrate 2,000 mcg/ (Sodium Chloride) 100 mls @ 0 mls/hr IV INF JIM; Protocol Stop: 01/26/19 17:24 Fentanyl Citrate (Fentanyl Bolus) 250 mls @ 0 mls/hr IVPB PRN PRN PRN Reason: Breakthrough pain/agitation Stop: 01/26/19 17:24 Potassium Chloride 40 meq/ (Sodium Chloride) 270 mls @ 135 mls/hr IVPB ASDIR PRN PRN Reason: FOR SERUM K+ 2.5 - 3.5 Potassium Chloride 40 meq/ (Device) 100 mls @ 50 mls/hr IVPB ASDIR PRN PRN Reason: FOR SERUM K+ 2.5 - 3.5 Magnesium Sulfate 1 gm/ Sodium (Chloride) 102 mls @ 102 mls/hr IV PRN PRN PRN Reason: MAG LEVEL 1.4 - 2.0 Magnesium Sulfate 2 gm/ Device 50 mls @ 50 mls/hr IVPB ASDIR PRN PRN Reason: MAGNESIUM < 1.4 Potassium Phosphate 9 mmol/ (Sodium Chloride) 103 mls @ 25.75 mls/hr IVPB ASDIR PRN PRN Reason: Phosphate 1.0-1.8 Potassium Phosphate 12 mmol/ (Sodium Chloride) 254 mls @ 63.5 mls/hr IV ASDIR PRN PRN Reason: Serum phosphate 0.5-0.9 Potassium Phosphate 15 mmol/ (Sodium Chloride) 255 mls @ 63.75 mls/hr IV ASDIR PRN PRN Reason: Serum Phos < 0.5 Norepinephrine Bitartrate 8 mg (/ Dextrose/Water) 250 mls @ 0 mls/hr IVPB INF PRN; Protocol PRN Reason: TO MAINTAIN MAP > 60 Last Admin: 12/27/18 18:00 Dose: 250 mls Lactated Ringer's (Lactated Ringer's) 1,000 mls @ 75 mls/hr IV .[id number] JIM Last Admin: 12/28/18 09:29 Dose: 1,000 mls Hydrocortisone Sodium Succinate 50 mg/ Sodium Chloride 50.4 mls @ 50 mls/hr IVPB BID JIM Lorazepam (Ativan) 2 mg SLOW IVP Q1H PRN PRN Reason: Breakthrough agitation Stop: 01/26/19 17:24 Last Admin: 12/27/18 23:31 Dose: 2 mg Magnesium Oxide (Magnesium Oxide) 400 mg PO BIDPRN PRN PRN Reason: FOR SERUM MAG 1.4 - 2.0 Magnesium Oxide (Magnesium Oxide) 800 mg PO PRN PRN PRN Reason: FOR SERUM MAG < 1.4 Miscellaneous Medication (Phos-Nak) 1 pkt PO TIDPRN PRN PRN Reason: FOR PHOS LEVEL 1.0 - 1.8 Miscellaneous Medication (Phos-Nak) 2 pkt PO TIDPRN PRN PRN Reason: FOR PHOS LEVEL 0.5 - 1.0 Morphine Sulfate (Morphine) 2 mg SLOW IVP Q1H PRN PRN Reason: BREAKTHROUGH PAIN/Agitation Stop: 01/26/19 17:24 Discontinue Previous Narcotic Pain Medications And Benzodiazepines 1 each FS .ONE JIM Stop: 01/26/19 17:24 Ccu Electrolyte (Replacement Protocol) 0 each FS PRN PRN PRN Reason: FOR ELECTROLYTE REPLACEMENT Ondansetron HCl (Zofran Odt) 4 mg PO Q6H PRN PRN Reason: Nausea/Vomiting Ondansetron HCl (Zofran) 4 mg IVP Q6H PRN PRN Reason: Nausea/Vomiting Pantoprazole Sodium (Protonix) 40 mg IVP DAILY [facility] Last Admin: 12/28/18 08:37 Dose: 40 mg Potassium Chloride (K-Dur) 40 meq PO ASDIR PRN PRN Reason: FOR SERUM K+ 2.5 - 3.5 Potassium Chloride (Klor-Con) 40 meq PER TUBE ASDIR PRN PRN Reason: FOR SERUM K+ 2.5-3.5 Propofol (Diprivan) 1,000 mg IV INF PRN; Protocol PRN Reason: TO ACHIEVE GOAL RASS Stop: 01/26/19 17:24 Last Admin: 12/27/18 21:12 Dose: 1,000 mg Propofol (Diprivan Bolus) 20 mg IV Q5MIN PRN PRN Reason: BREAKTHROUGH AGITATION Stop: 01/26/19 17:24 Sodium Chloride (Flush - Normal Saline) 10 ml IVF Q12HR JIM Sodium Chloride (Flush - Normal Saline) 10 ml IVF PRN PRN PRN Reason: Saline Flush Vital Signs & Weight: Vital Signs Temp Pulse Resp BP Pulse Ox 12/28/18 12:00 98.3 F 98 12/28/18 09:06 79 15 99 12/28/18 08:00 16 12/28/18 07:17 100 12/28/18 07:06 73 93/53 L 12/28/18 07:00 98.0 F 12/28/18 06:00 14 12/28/18 04:00 99.4 F 14 12/28/18 02:06 83 12/28/18 02:00 14 Weight 146 lb 13.246 oz - Physical Exam General: alert & oriented x3, no apparent distress HEENT: mucus membranes moist, normocephaly Neck: supple neck, midline trachea Cardiac: regular rate and rhythm, no murmur Lungs: clear to auscultation, no wheeze, rales, rhonchi Neuro: grossly intact, coordination normal Abdomen: active bowel sounds, soft, non-tender Skin: clear Musculoskeletal: normal range of motion, no pain - Labs Result Diagrams: 12/28/18 04:10 12/28/18 03:30 Troponin/CKMB Troponin I 3.717 ng/mL (< 0.028) H* 12/28/18 04:10 - Telemetry Sinus rhythms and dysrhythmias: sinus tachycardia - Assessment/Plan Assessment/Plan: 1. Sycope. 2. Bradycardia arrest. 3. Aortic valve sclerosis. 4. Normal LV function. 5. NSTEMI type 2 WHO type of ND, demand ischemia. PLAN: - Will need PPM placement once weaned off pressors. - Likely PPM sunday. - No evidence of an acute infection. - Critical Care Time Critical care time (mins): 30
[2018-12-28] MEDS: Norepinephrine 8 MG in Dextrose 5% in Water 242 ML IVPB PRN (22:37)
[2018-12-29 05:51] LABS: #Basophils 0.1 thou/uL (0.0-0.2); #Lymphocytes 1.1 thou/uL (1.20-3.40); #Monocytes 1.1 thou/uL (0.11-0.59); #Neutrophils 13.3 thou/uL (1.40-6.50); %Basophils 0.3 % (0.0-1.0); %Eosinophils 0.3 % (0.0-10.0); %Monocytes 6.9 % (0.0-10.0); %Neutrophils 85.6 % (42.0-75.0); Hemoglobin 8.4 g/dL (12.0-16.0); Mean Corpuscular Hemoglobin 28.3 pg (27.0-31.0); Mean Corpuscular Volume 85.7 fL (78.0-98.0); Mean Platelet Volume 7.3 fL (7.4-10.4); Platelet Count 258 thou/uL (130-400); RBC Distribution Width 13.8 % (11.5-14.5); Red Blood Cell (RBC) Count 2.95 mill/uL (4.20-5.40); White Blood Cell (WBC) Count 15.5 thou/uL (4.8-10.8)
[2018-12-29] MEDS: Lactated Ringer's 1,000 ML IV SCH ×2 (05:51→11:11)
--- NOTE | 2018-12-29 06:01 | PDOC.FM ---
- Subjective Subjective: Pt doing very well this AM. Off all oxygen and alert and oriented. Denies any chest pain, palpitations. Reports her dizziness has resolved. She is tolerating PO. - Objective MAR Reviewed: Yes Vital Signs & Weight: Vital Signs (12 hours) Temp Pulse Ox 12/29/18 04:00 98.5 F 12/28/18 19:30 98 12/28/18 19:00 98.2 F Weight Weight 69.7 kg Most Recent Monitor Data Heart Rate from ECG 76 NIBP 130/66 NIBP BP-Mean 87 Respiration from ECG 21 SpO2 100 I&O: 12/27/18 12/28/18 12/29/18 06:59 06:59 06:59 Intake Total 1991.1 2394.8 Output Total 313 715 Balance 1678.1 1679.8 Result Diagrams: 12/29/18 05:03 12/29/18 05:03 Phys Exam - Physical Examination Constitutional: NAD HEENT: moist MMs, sclera anicteric Respiratory: no wheezing, no rales, no rhonchi, clear to auscultation bilateral Cardiovascular: RRR, no significant murmur, no rub Gastrointestinal: soft, non-tender, no distention, positive bowel sounds Musculoskeletal: pulses present Neurological: normal sensation, moves all 4 limbs Psychiatric: normal affect, A&O x 3 Skin: normal turgor, cap refill <2 seconds Dx/Plan (1) Orthostatic hypotension Code(s): I95.1 - ORTHOSTATIC HYPOTENSION Status: Acute (2) Arrhythmia Code(s): I49.9 - CARDIAC ARRHYTHMIA, UNSPECIFIED Status: Acute (3) Bradycardia Code(s): R00.1 - BRADYCARDIA, UNSPECIFIED Status: Acute (4) Acute respiratory failure with hypoxia Code(s): J96.01 - ACUTE RESPIRATORY FAILURE WITH HYPOXIA Status: Resolved (5) Cardiogenic shock Code(s): R57.0 - CARDIOGENIC SHOCK Status: Acute (6) Hypothyroidism Code(s): E03.9 - HYPOTHYROIDISM, UNSPECIFIED Status: Chronic (7) HTN (hypertension) Code(s): I10 - ESSENTIAL (PRIMARY) HYPERTENSION Status: Chronic - Plan Plan: Acute Hypoxic Respiratory Failure 2/2 cardiac arrhythmia, resolved Pt did not resume normal mentation after bradycardia into the 30s and then subsequent v-tach. She was intubated in the ED and given etomidate and rocuronium. ABG showed pH 7.07, pCO2 50.9, pO2 121.7. Subsequent ABG showed pH 7.58, pCO2 17.4. Rate slowed down and repeat this AM showed pH 7.49, pCOD 26.1. 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 Concerning that this is the cause of her syncopal episode Echo showed aortic sclerosis, mild MR, mild TR, grade 1/3 diastolic dysfunction and EF of 65-70% -Cards consulted, appreciate recs. Plan for pacemaker likely Sunday -Monitor with cardiac monitoring NSTEMI Type 2 Likely 2/2 demand ischemia in the setting of recent defibrillation and hypoperfusion. Pt had initial negative trop and no signs of new ischemia on admission EKG or chest pain. -Cards on board, will defer to them for further management Shock Liver, resolving Pt with elevation in LFT's that are now downtrending, likely 2/2 period of hypoperfusion now improving -Monitor Syncope Likely 2/[address] head normal. -Plan as above Scalp Laceration s/p 3 page -Wound care Normocytic Anemia 2/2 anemia of chronic disease Pt baseline around 13, admission Hb 11.1. Iron studies consistent with anemia of chronic disease. FOBT negative. Now 8.4, but likely dilutional -Monitor Orthostatic Hypotension Pt with positive orthostatic vital signs in ED. s/p 3L NS -Will re-assess further after other acute issues resolved Hypothyroidism TSH low, may need to adjust home synthroid dose -Will restart home synthroid HTN -Will hold home meds as currently hypotensive Diet: CC Dispo: Transition to IMCU if stays off levophed LOS: likely 2-4 days VTE ppx: Lovenox GI ppx: Protonix Tubes/Lines: ET tube 12/27-12/28, R femoral CVC 12/27, OG tube 12/27-12/28 Addendum - Attending - Attending Attestation Date/Time: 12/29/18 [id number] I personally evaluated the patient and discussed the management with Dr. Ding. I agree with the History, Examination, Assessment and Plan documented above with any addition or exceptions noted below. Patient doing well this morning. Weaning Levophed currently. She has had no major telemetry events. Feels well. She will need pacemaker placement and plan for that is tomorrow. Cardiology on board. Anticipate her issues were from christie -arrest that we fortunately caught here in the hospital. She will need PT. Transfer to IMCU if she gets weaned off Levophed.
[2018-12-29 06:10] LABS: Anion Gap 10 mmol/L (10-20); BUN (Urea Nitrogen) 22 mg/dL (9.8-20.1); Calc. Creatinine Clearance 52 mL/min (70-130); Calcium 7.7 mg/dL (7.8-10.44); Carbon Dioxide 22 mmol/L (23-31); Chloride 113 mmol/L (98-107); Estimated GFR-MDRD 58; Glucose 144 mg/dL (83-110); Potassium 3.8 mmol/L (3.5-5.1); Sodium 141 mmol/L (136-145)
[2018-12-29] MEDS: Hydrocortisone Sod Succ/PF 50 MG in Sodium Chloride 0.9% 50 ML IVPB SCH ×2 (08:41→21:13)
[2018-12-29] MEDS: Pantoprazole 40 MG VIAL IVP SCH (08:41)
[2018-12-29] MEDS: Atorvastatin Calcium 40 MG TAB PO SCH (08:42)
[2018-12-29] MEDS: Enoxaparin Sodium 40 MG/0.4 ML SYRINGE SC SCH (08:43)
--- NOTE | 2018-12-29 10:29 | PRG ---
DATE OF SERVICE: 12/29/2018 SUBJECTIVE: She was successfully extubated yesterday. She is still requiring a little bit of Levophed because her blood pressure falls otherwise. She is tentatively scheduled for pacemaker tomorrow. OBJECTIVE: VITAL SIGNS: Her temperature is 98.1, pulse 75, blood pressure 100/46, O2 saturation 100%, and respiratory rate 19. GENERAL: She appears in no distress. HEENT: Unremarkable. NECK: No adenopathy or JVD. CHEST: Clear. CARDIAC: S1 and S2, regular. ABDOMEN: Soft. EXTREMITIES: No edema. LABORATORY DATA: White blood cell count 15.5, hematocrit 25.3, platelet count 258. Sodium 141, potassium 3.8, chloride 113, CO2 of 22, BUN 22, creatinine 0.9, and glucose 144. Troponin is 3.7. ASSESSMENT: 1. Bradycardia, lately syncopal episodes. 2. Status post arrest. 3. Status post respiratory failure. 4. Aortic valve sclerosis. 5. Normal LV function. 6. Continued hypotension. PLAN: She will probably need to be on Levophed until pacemaker is placed. I will go ahead and continue the hydrocortisone for another day or so. She continues on lactated Ringer's. Job ID: [id number]
--- NOTE | 2018-12-29 12:07 | PDOC.CPN ---
- Subjective Date: 12/29/18 Time: 12:04 Interval history: She is doing well. No more syncope or bradycardia. Still needing Levophed to keep BP up. When off levopohed her HR remains the same but BP drops. - Review of Systems General: denies: fever/chills, weight/appetite/sleep changes, night sweats, fatigue Respiratory: denies: cough, congestion, shortness of breath, exercise intolerance Cardiovascular: denies: chest pain, palpitation, edema, paroxysmal nocturnal dyspnea, orthopnea Gastrointestinal: denies: nausea, vomiting, diarrhea, constipation, abd pain, GI bleeding Musculoskeletal: denies: pain, tenderness, stiffness, swelling, arthritis/ arthralgias Neurological: denies: numbness, syncope, seizure, weakness - Objective Allergies/Adverse Reactions: Allergies Allergy/AdvReac Type Severity Reaction Status Date / Time No Known Drug Allergies Allergy Verified 08/21/16 23:54 Visit Medications: Current Medications Acetaminophen (Tylenol) 650 mg PO Q4H PRN PRN Reason: Headache/Fever/Mild Pain (1-3) Atorvastatin Calcium (Lipitor) 40 mg PO DAILY [facility] Last Admin: 12/29/18 08:42 Dose: 40 mg Enoxaparin Sodium (Lovenox) 40 mg SC 0900 [facility] Last Admin: 12/29/18 08:43 Dose: 40 mg Potassium Chloride 40 meq/ (Sodium Chloride) 270 mls @ 135 mls/hr IVPB ASDIR PRN PRN Reason: FOR SERUM K+ 2.5 - 3.5 Potassium Chloride 40 meq/ (Device) 100 mls @ 50 mls/hr IVPB ASDIR PRN PRN Reason: FOR SERUM K+ 2.5 - 3.5 Magnesium Sulfate 1 gm/ Sodium (Chloride) 102 mls @ 102 mls/hr IV PRN PRN PRN Reason: MAG LEVEL 1.4 - 2.0 Magnesium Sulfate 2 gm/ Device 50 mls @ 50 mls/hr IVPB ASDIR PRN PRN Reason: MAGNESIUM < 1.4 Potassium Phosphate 9 mmol/ (Sodium Chloride) 103 mls @ 25.75 mls/hr IVPB ASDIR PRN PRN Reason: Phosphate 1.0-1.8 Potassium Phosphate 12 mmol/ (Sodium Chloride) 254 mls @ 63.5 mls/hr IV ASDIR PRN PRN Reason: Serum phosphate 0.5-0.9 Potassium Phosphate 15 mmol/ (Sodium Chloride) 255 mls @ 63.75 mls/hr IV ASDIR PRN PRN Reason: Serum Phos < 0.5 Norepinephrine Bitartrate 8 mg (/ Dextrose/Water) 250 mls @ 0 mls/hr IVPB INF PRN; Protocol PRN Reason: TO MAINTAIN MAP > 60 Last Admin: 12/28/18 22:37 Dose: 250 mls Lactated Ringer's (Lactated Ringer's) 1,000 mls @ 75 mls/hr IV .[id number] [facility] Last Admin: 12/29/18 11:11 Dose: Not Given Hydrocortisone Sodium Succinate 50 mg/ Sodium Chloride 50.4 mls @ 50 mls/hr IVPB BID [facility] Last Admin: 12/29/18 08:41 Dose: 50.4 mls Levothyroxine Sodium (Synthroid) 200 mcg PO 0600 [facility] Magnesium Oxide (Magnesium Oxide) 400 mg PO BIDPRN PRN PRN Reason: FOR SERUM MAG 1.4 - 2.0 Magnesium Oxide (Magnesium Oxide) 800 mg PO PRN PRN PRN Reason: FOR SERUM MAG < 1.4 Miscellaneous Medication (Phos-Nak) 1 pkt PO TIDPRN PRN PRN Reason: FOR PHOS LEVEL 1.0 - 1.8 Miscellaneous Medication (Phos-Nak) 2 pkt PO TIDPRN PRN PRN Reason: FOR PHOS LEVEL 0.5 - 1.0 Ccu Electrolyte (Replacement Protocol) 0 each FS PRN PRN PRN Reason: FOR ELECTROLYTE REPLACEMENT Ondansetron HCl (Zofran Odt) 4 mg PO Q6H PRN PRN Reason: Nausea/Vomiting Ondansetron HCl (Zofran) 4 mg IVP Q6H PRN PRN Reason: Nausea/Vomiting Pantoprazole Sodium (Protonix) 40 mg IVP DAILY [facility] Last Admin: 12/29/18 08:41 Dose: 40 mg Potassium Chloride (K-Dur) 40 meq PO ASDIR PRN PRN Reason: FOR SERUM K+ 2.5 - 3.5 Potassium Chloride (Klor-Con) 40 meq PER TUBE ASDIR PRN PRN Reason: FOR SERUM K+ 2.5-3.5 Sodium Chloride (Flush - Normal Saline) 10 ml IVF Q12HR [facility] Last Admin: 12/29/18 08:41 Dose: 10 ml Sodium Chloride (Flush - Normal Saline) 10 ml IVF PRN PRN PRN Reason: Saline Flush Vital Signs & Weight: Vital Signs Temp Pulse Ox 12/29/18 07:16 100 12/29/18 07:00 98.1 F 12/29/18 04:00 98.5 F Weight 153 lb 10.595 oz - Physical Exam General: alert & oriented x3, no apparent distress HEENT: mucus membranes moist, normocephaly Neck: supple neck, midline trachea Cardiac: regular rate and rhythm, no murmur Lungs: clear to auscultation, no wheeze, rales, rhonchi Neuro: grossly intact, coordination normal Abdomen: active bowel sounds, soft, non-tender Skin: clear Musculoskeletal: normal range of motion, no pain - Labs Result Diagrams: 12/29/18 05:03 12/29/18 05:03 Troponin/CKMB Troponin I 3.717 ng/mL (< 0.028) H* 12/28/18 04:10 - Telemetry Sinus rhythms and dysrhythmias: sinus rhythm - Assessment/Plan Assessment/Plan: 1. Sycope. 2. Bradycardia arrest. 3. Aortic valve sclerosis. 4. Normal LV function. 5. NSTEMI type 2 WHO type of SD, demand ischemia. 6. Hypotension requiring pressors. PLAN: - Will need PPM placement once weaned off pressors. - Cannot get her off levphed just yet, her BP drops but her HR remains in the 70 's to 80's. I cannot explain this just by having episodes of bradycardia that made her have syncope and have a code blue. No evidence of an acute infection so far, normal LV function. - Continue to monitor in ICU. - Critical Care Time Critical care time (mins): 30
[2018-12-30] MEDS: Lactated Ringer's 1,000 ML IV SCH ×2 (01:18→18:18)
[2018-12-30] MEDS: Levothyroxine Sodium 100 MCG TAB PO SCH (04:56)
[2018-12-30 05:22] LABS: #Basophils 0.1 thou/uL (0.0-0.2); #Lymphocytes 0.9 thou/uL (1.20-3.40); #Monocytes 0.5 thou/uL (0.11-0.59); #Neutrophils 7.4 thou/uL (1.40-6.50); %Basophils 0.7 % (0.0-1.0); %Eosinophils 0.5 % (0.0-10.0); %Lymphocytes 9.7 % (21.0-51.0); %Monocytes 5.5 % (0.0-10.0); %Neutrophils 83.6 % (42.0-75.0); Hemoglobin 7.8 g/dL (12.0-16.0); Mean Corpuscular Hemoglobin 28.8 pg (27.0-31.0); Mean Corpuscular Volume 87.3 fL (78.0-98.0); Mean Platelet Volume 7.2 fL (7.4-10.4); Platelet Count 171 thou/uL (130-400); RBC Distribution Width 13.4 % (11.5-14.5); Red Blood Cell (RBC) Count 2.71 mill/uL (4.20-5.40); White Blood Cell (WBC) Count 8.9 thou/uL (4.8-10.8)
[2018-12-30 05:38] LABS: Anion Gap 11 mmol/L (10-20); BUN (Urea Nitrogen) 21 mg/dL (9.8-20.1); Calc. Creatinine Clearance 58 mL/min (70-130); Calcium 7.7 mg/dL (7.8-10.44); Carbon Dioxide 23 mmol/L (23-31); Chloride 112 mmol/L (98-107); Estimated GFR-MDRD 66; Glucose 141 mg/dL (83-110); Potassium 3.5 mmol/L (3.5-5.1); Sodium 142 mmol/L (136-145)
--- NOTE | 2018-12-30 06:25 | PDOC.FM ---
- Subjective Subjective: No overnight events. Pt feeling much better today. She has been off pressors since yesterday at 1700. Denies palpitations, chest pain, shortness of breath. No episodes of syncope. Currently NPO for possible pacemaker placement today. - Objective MAR Reviewed: Yes Vital Signs & Weight: Vital Signs (12 hours) Temp Pulse Ox 12/30/18 04:00 99.6 F 12/30/18 00:00 98.0 F 12/29/18 20:00 98.1 F 100 Weight Weight 66.1 kg Most Recent Monitor Data Heart Rate from ECG 64 NIBP 111/45 NIBP BP-Mean 67 Respiration from ECG 17 SpO2 96 I&O: 12/28/18 12/29/18 12/30/18 06:59 06:59 06:59 Intake Total 1991.1 2394.8 1158 Output Total 556 056 1676 Balance 1678.1 1659.8 58 Result Diagrams: 12/30/18 04:55 12/30/18 04:55 Phys Exam - Physical Examination Constitutional: NAD HEENT: moist MMs Neck: supple Respiratory: no wheezing, clear to auscultation bilateral Cardiovascular: RRR Gastrointestinal: soft, non-tender 3/6 systolic murmur Musculoskeletal: no edema, pulses present Neurological: moves all 4 limbs Psychiatric: normal affect, A&O x 3 Skin: normal turgor Dx/Plan - Plan Plan: Acute Hypoxic Respiratory Failure 2/2 cardiac arrhythmia, resolved Bradycardia into 30s with subsequent v-tach. She was intubated in the ED, extubated 12/28 - Pulm consulted, appreciate recs Cardiogenic shock resolved - Off pressors since 1700 yesterday. 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 Concerning that this is the cause of her syncopal episode Echo showed aortic sclerosis, mild MR, mild TR, grade 1/3 diastolic dysfunction and EF of 65-70% - Cards consulted, appreciate recs. Plan for pacemaker likely Today, pt NPO - Monitor with cardiac monitoring NSTEMI Type 2 Likely 2/2 demand ischemia in the setting of recent defibrillation and hypoperfusion. Pt had initial negative trop and no signs of new ischemia on admission EKG or chest pain. - Cards on board, will defer to them for further management Shock Liver, resolving Pt with elevation in LFT's that are now downtrending, likely 2/2 period of hypoperfusion now improving - Will repeat LFTs tomorrow Syncope Likely 2/[address] head normal. Scalp Laceration s/p 3 page - Wound care Normocytic Anemia 2/2 anemia of chronic disease Baseline hgb 13, admission Hb 11.1. Iron studies consistent with anemia of chronic disease. FOBT negative. Now 7.8, but likely dilutional Hypothyroidism TSH low, may need to adjust home synthroid dose - Will restart home synthroid HTN - Will hold home meds as currently hypotensive Diet: CC VTE ppx: Lovenox GI ppx: Protonix Tubes/Lines: ET tube 12/27-12/28, R femoral CVC 12/27, OG tube 12/27-12/28
[2018-12-30] MEDS: Pantoprazole 40 MG VIAL IVP SCH (09:18)
[2018-12-30] MEDS: Hydrocortisone Sod Succ/PF 50 MG in Sodium Chloride 0.9% 50 ML IVPB SCH ×2 (09:18→20:40)
[2018-12-30] MEDS: Atorvastatin Calcium 40 MG TAB PO SCH (09:19)
--- NOTE | 2018-12-30 09:51 | PRG ---
DATE OF SERVICE: 12/30/2018 SUBJECTIVE: The patient is doing well, has no complaints. OBJECTIVE: VITAL SIGNS: Temperature is 99.6, pulse 64, blood pressure 111/45, and O2 saturation 96%. HEENT: Unremarkable. NECK: No JVD. CHEST: Clear. CARDIAC: S1 and S2. Regular. ABDOMEN: Soft. EXTREMITIES: No edema. LABORATORY DATA: White blood cell count 8.9, hemoglobin 7.8, hematocrit 23.7, and platelet count 171. Sodium 142, potassium 3.5, chloride 112, CO2 of 23, BUN 21, creatinine 0.8, and glucose 141. ASSESSMENT: 1. Status post two syncopal episodes secondary to bradycardia. 2. Fairly profound anemia. 3. Aortic valve sclerosis. 4. Normal LV function. 5. Resolved hypotension. PLAN: 1. Can send to telemetry. 2. Probably will need further workup for anemia. 3. May need pacemaker. She will be seen by Dr. Caceres, who will help decide. Job ID: [id number]
--- NOTE | 2018-12-30 10:11 | PRG ---
DATE OF SERVICE: 12/30/2018 Ms. Mao is sitting quietly in bed, in no distress. She had initially been admitted with bradycardia followed by ventricular tachycardia, followed by cardiac arrest and had to be intubated early in her hospital course. She is now doing extremely well. She has been seen in consultation by the Cardiology Service and is to have a pacemaker placement today. Job ID: [id number]
[2018-12-30] MEDS ORDERED: Dextrose 50% Abboject 50 ML SYRINGE ONE (11:11)
[2018-12-30] MEDS ORDERED: Sodium Bicarb 50 MEQ/50 ML Abboject 8.4% SYRINGE ONE (11:11)
[2018-12-30] MEDS: Enoxaparin Sodium 40 MG/0.4 ML SYRINGE SC SCH (12:15)
[2018-12-30 13:39] LABS: Hemoglobin 8.5 g/dL (12.0-16.0); Mean Corpuscular HGB CONC 32.9 g/dL (32.0-36.0); Mean Corpuscular Hemoglobin 28.5 pg (27.0-31.0); Mean Corpuscular Volume 86.8 fL (78.0-98.0); Mean Platelet Volume 6.9 fL (7.4-10.4); Platelet Count 168 thou/uL (130-400); RBC Distribution Width 13.4 % (11.5-14.5); Red Blood Cell (RBC) Count 2.96 mill/uL (4.20-5.40); White Blood Cell (WBC) Count 8.3 thou/uL (4.8-10.8)
--- NOTE | 2018-12-30 15:41 | PDOC.CPN ---
- Subjective Date: 12/30/18 Time: 15:39 Interval history: She is doing well. No chest pain, no syncope. - Review of Systems General: denies: fever/chills, weight/appetite/sleep changes, night sweats, fatigue Respiratory: denies: cough, congestion, shortness of breath, exercise intolerance Cardiovascular: denies: chest pain, palpitation, edema, paroxysmal nocturnal dyspnea, orthopnea Gastrointestinal: denies: nausea, vomiting, diarrhea, constipation, abd pain, GI bleeding Musculoskeletal: denies: pain, tenderness, stiffness, swelling, arthritis/ arthralgias Neurological: denies: numbness, syncope, seizure, weakness - Objective Allergies/Adverse Reactions: Allergies Allergy/AdvReac Type Severity Reaction Status Date / Time No Known Drug Allergies Allergy Verified 08/21/16 23:54 Visit Medications: Current Medications Acetaminophen (Tylenol) 650 mg PO Q4H PRN PRN Reason: Headache/Fever/Mild Pain (1-3) Atorvastatin Calcium (Lipitor) 40 mg PO DAILY [facility] Last Admin: 12/30/18 09:19 Dose: Not Given Enoxaparin Sodium (Lovenox) 40 mg SC 0900 [facility] Last Admin: 12/30/18 12:15 Dose: Not Given Potassium Chloride 40 meq/ (Sodium Chloride) 270 mls @ 135 mls/hr IVPB ASDIR PRN PRN Reason: FOR SERUM K+ 2.5 - 3.5 Potassium Chloride 40 meq/ (Device) 100 mls @ 50 mls/hr IVPB ASDIR PRN PRN Reason: FOR SERUM K+ 2.5 - 3.5 Magnesium Sulfate 1 gm/ Sodium (Chloride) 102 mls @ 102 mls/hr IV PRN PRN PRN Reason: MAG LEVEL 1.4 - 2.0 Magnesium Sulfate 2 gm/ Device 50 mls @ 50 mls/hr IVPB ASDIR PRN PRN Reason: MAGNESIUM < 1.4 Potassium Phosphate 9 mmol/ (Sodium Chloride) 103 mls @ 25.75 mls/hr IVPB ASDIR PRN PRN Reason: Phosphate 1.0-1.8 Potassium Phosphate 12 mmol/ (Sodium Chloride) 254 mls @ 63.5 mls/hr IV ASDIR PRN PRN Reason: Serum phosphate 0.5-0.9 Potassium Phosphate 15 mmol/ (Sodium Chloride) 255 mls @ 63.75 mls/hr IV ASDIR PRN PRN Reason: Serum Phos < 0.5 Lactated Ringer's (Lactated Ringer's) 1,000 mls @ 75 mls/hr IV .[id number] [facility] Last Admin: 12/30/18 01:18 Dose: Not Given Hydrocortisone Sodium Succinate 50 mg/ Sodium Chloride 50.4 mls @ 50 mls/hr IVPB BID [facility] Last Admin: 12/30/18 09:18 Dose: 50.4 mls Levothyroxine Sodium (Synthroid) 200 mcg PO 0600 [facility] Last Admin: 12/30/18 04:56 Dose: 200 mcg Magnesium Oxide (Magnesium Oxide) 400 mg PO BIDPRN PRN PRN Reason: FOR SERUM MAG 1.4 - 2.0 Magnesium Oxide (Magnesium Oxide) 800 mg PO PRN PRN PRN Reason: FOR SERUM MAG < 1.4 Miscellaneous Medication (Phos-Nak) 1 pkt PO TIDPRN PRN PRN Reason: FOR PHOS LEVEL 1.0 - 1.8 Miscellaneous Medication (Phos-Nak) 2 pkt PO TIDPRN PRN PRN Reason: FOR PHOS LEVEL 0.5 - 1.0 Ccu Electrolyte (Replacement Protocol) 0 each FS PRN PRN PRN Reason: FOR ELECTROLYTE REPLACEMENT Ondansetron HCl (Zofran Odt) 4 mg PO Q6H PRN PRN Reason: Nausea/Vomiting Ondansetron HCl (Zofran) 4 mg IVP Q6H PRN PRN Reason: Nausea/Vomiting Pantoprazole Sodium (Protonix) 40 mg IVP DAILY [facility] Last Admin: 12/30/18 09:18 Dose: 40 mg Potassium Chloride (K-Dur) 40 meq PO ASDIR PRN PRN Reason: FOR SERUM K+ 2.5 - 3.5 Potassium Chloride (Klor-Con) 40 meq PER TUBE ASDIR PRN PRN Reason: FOR SERUM K+ 2.5-3.5 Sodium Chloride (Flush - Normal Saline) 10 ml IVF Q12HR [facility] Last Admin: 12/29/18 21:14 Dose: 10 ml Sodium Chloride (Flush - Normal Saline) 10 ml IVF PRN PRN PRN Reason: Saline Flush Sodium Chloride (Flush - Normal Saline) 10 ml IVF Q12HR [facility] Sodium Chloride (Flush - Normal Saline) 10 ml IVF PRN PRN PRN Reason: Saline Flush Vital Signs & Weight: Vital Signs Temp Pulse Ox 12/30/18 12:00 98.2 F 12/30/18 08:00 98.1 F 98 12/30/18 04:00 99.6 F Weight 145 lb 11.609 oz - Physical Exam General: alert & oriented x3 HEENT: mucus membranes moist Neck: supple neck, midline trachea Cardiac: regular rate and rhythm, no murmur Lungs: clear to auscultation Neuro: grossly intact Abdomen: active bowel sounds, soft, non-tender Skin: clear Musculoskeletal: normal range of motion, no pain - Labs Result Diagrams: 12/30/18 13:31 12/30/18 04:55 Troponin/CKMB Troponin I 3.717 ng/mL (< 0.028) H* 12/28/18 04:10 - Telemetry Sinus rhythms and dysrhythmias: sinus rhythm - Assessment/Plan Assessment/Plan: 1. Sycope. 2. Bradycardia arrest. 3. Aortic valve sclerosis. 4. Normal LV function. 5. NSTEMI type 2 WHO type of PR, demand ischemia. 6. Hypotension requiring pressors. PLAN: - She is off pressors and maintaining her BP. - Repeat H&H to make sure she is not bleeding. Her Hgb drop may be related to dilution from fluid resuscitation. - If hgb stable will plan on doing PPM tomorrow morning.
[2018-12-30 16:08] LABS: Folate,Hemolysate 332.1 ng/mL (Not Estab.); Hematocrit 35.6 % (34.0-46.6); RBC Folate Test Component 933 ng/mL (>498)
[2018-12-31] MEDS: Lactated Ringer's 1,000 ML IV SCH ×2 (02:15→23:14)
[2018-12-31 05:24] LABS: #Lymphocytes 1.1 thou/uL (1.20-3.40); #Monocytes 0.5 thou/uL (0.11-0.59); #Neutrophils 5.3 thou/uL (1.40-6.50); %Basophils 0.5 % (0.0-1.0); %Eosinophils 0.6 % (0.0-10.0); %Lymphocytes 15.6 % (21.0-51.0); %Monocytes 6.8 % (0.0-10.0); %Neutrophils 76.4 % (42.0-75.0); Hemoglobin 7.8 g/dL (12.0-16.0); Mean Corpuscular Hemoglobin 28.7 pg (27.0-31.0); Mean Corpuscular Volume 87.1 fL (78.0-98.0); Mean Platelet Volume 7.3 fL (7.4-10.4); Platelet Count 188 thou/uL (130-400); RBC Distribution Width 13.1 % (11.5-14.5); Red Blood Cell (RBC) Count 2.71 mill/uL (4.20-5.40)
[2018-12-31] MEDS: Levothyroxine Sodium 100 MCG TAB PO SCH (05:34)
[2018-12-31 05:41] LABS: ALT (SGPT) 64 U/L (8-55); AST (SGOT) 30 U/L (5-34); Albumin 2.7 g/dL (3.4-4.8); Alkaline Phosphatase 88 U/L (40-110); Anion Gap 11 mmol/L (10-20); BUN (Urea Nitrogen) 20 mg/dL (9.8-20.1); Bilirubin, Total 0.3 mg/dL (0.2-1.2); Calc. Creatinine Clearance 63 mL/min (70-130); Calcium 7.6 mg/dL (7.8-10.44); Carbon Dioxide 21 mmol/L (23-31); Chloride 112 mmol/L (98-107); Estimated GFR-MDRD 72; Globulin 2.1 g/dL (2.4-3.5); Glucose 127 mg/dL (83-110); Potassium 3.5 mmol/L (3.5-5.1); Protein, Total 4.8 g/dL (6.0-8.3); Sodium 140 mmol/L (136-145)
--- NOTE | 2018-12-31 06:32 | PDOC.FM ---
- Subjective Subjective: Feeling well today. Denies palpitations, chest pain, shortness of breath. Slept well overnight. Denies dizziness, lightheadedness. - Objective MAR Reviewed: Yes Vital Signs & Weight: Vital Signs (12 hours) Temp Pulse Resp BP Pulse Ox 12/31/18 04:38 98.5 F 64 20 133/60 93 L 12/30/18 23:40 98.1 F 73 18 115/85 100 12/30/18 20:30 99 12/30/18 20:00 98.5 F Weight Weight 69.581 kg Most Recent Monitor Data Heart Rate from ECG 69 NIBP 104/58 NIBP BP-Mean 73 Respiration from ECG 20 SpO2 98 I&O: 12/29/18 12/30/18 12/31/18 06:59 06:59 06:59 Intake Total 2394.8 1410 540 Output Total 735 1200 850 Balance 1659.8 210 -310 Result Diagrams: 12/31/18 04:55 12/31/18 04:55 Phys Exam - Physical Examination Constitutional: NAD HEENT: moist MMs Neck: supple Respiratory: no wheezing, clear to auscultation bilateral Cardiovascular: RRR Gastrointestinal: soft, non-tender, positive bowel sounds Musculoskeletal: no edema, pulses present Neurological: moves all 4 limbs Psychiatric: normal affect, A&O x 3 Skin: normal turgor Dx/Plan - Plan Plan: 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 Echo showed aortic sclerosis, mild MR, mild TR, grade 1/3 diastolic dysfunction and EF of 65-70% - Cards consulted, appreciate recs. Plan for pacemaker likely today - Monitor with cardiac monitoring NSTEMI Type 2 Likely 2/2 demand ischemia in the setting of recent defibrillation and hypoperfusion. Pt had initial negative trop and no signs of new ischemia on admission EKG or chest pain. - Cards on board, will defer to them for further management Syncope Likely 2/[address] head normal. Scalp Laceration s/p 3 page - Wound care Normocytic Anemia 2/2 anemia of chronic disease - Baseline hgb 13, admission Hb 11.1. Iron studies consistent with anemia of chronic disease. - FOBT negative. Now 7.8, but likely dilutional. Peripheral smear and retic pending Hypothyroidism - TSH low, d/c synthroid. Will resume dose at 150mcg daily in a couple days Acute Hypoxic Respiratory Failure 2/2 cardiac arrhythmia, resolved - Intubated 12/27-12/28 - Pulm consulted, appreciate recs HTN - Resume once indicated Cardiogenic shock resolved Shock Liver, resolved Diet: NPO VTE ppx: Lovenox GI ppx: Protonix Tubes/Lines: ET tube 12/27-12/28, R femoral CVC 12/27- 12/28, OG tube 12/27-12/28
[2018-12-31 08:22] LABS: Hemoglobin 7.8 g/dL (12.0-16.0); MDiff Complete? YES; Mean Corpuscular Hemoglobin 28.7 pg (27.0-31.0); Mean Corpuscular Volume 87.1 fL (78.0-98.0); Mean Platelet Volume 7.3 fL (7.4-10.4); Platelet Count 188 thou/uL (130-400); RBC Distribution Width 13.1 % (11.5-14.5); Red Blood Cell (RBC) Count 2.71 mill/uL (4.20-5.40); Reticulocyte Count 2.1 % (0.5-1.5)
[2018-12-31 08:46] LABS: Lymphocytes 11 % (21-51); Monocytes 9 % (0-10); Neutrophil 78 % (42-75)
[2018-12-31 08:47] LABS: Band 2 % (5-11); Platelet Morphology Comment Appears Adequate
[2018-12-31 08:48] LABS: Hypochromia SLIGHT = 6-15 cells (100X) (0-5/hpf)
--- NOTE | 2018-12-31 10:21 | PRG ---
DATE OF SERVICE: 12/31/2018 SUBJECTIVE: Ms. Mao is her usual very pleasant, feisty self this morning. She is scheduled to have a pacemaker placed later this morning. In reviewing her labs, it is obvious that her hemoglobin has dropped since admission. On admission, it was 11.1, it is now 7.8. Certainly some of this is due to rehydration. Her MCV is normal at 87. We should, however, go ahead and initiate a workup to include some iron studies, B12, and RBC folate. In the event, she is asymptomatic and awaiting placement of her pacemaker. Her vital signs remained stable. Her blood pressure is 134/68 and her pulse rate is 70. Job ID: [id number]
[2018-12-31] MEDS: Hydrocortisone Sod Succ/PF 50 MG in Sodium Chloride 0.9% 50 ML IVPB SCH ×2 (11:03→21:30)
[2018-12-31] MEDS: Atorvastatin Calcium 40 MG TAB PO SCH (11:03)
[2018-12-31] MEDS: Pantoprazole 40 MG VIAL IVP SCH (11:03)
[2018-12-31] MEDS: Enoxaparin Sodium 40 MG/0.4 ML SYRINGE SC SCH (11:04)
[2018-12-31] MEDS ORDERED: Sodium Chloride 0.9% (PF) 10 ML VIAL FS PRN (14:34)
--- NOTE | 2018-12-31 18:04 | PDOC.CPN ---
- Subjective Date: 12/31/18 Time: 18:02 Interval history: She is doing well. She states she feels very well after she received her unit of bleed. She feels her hands are warmer. - Review of Systems General: denies: fever/chills, weight/appetite/sleep changes, night sweats, fatigue Respiratory: denies: cough, congestion, shortness of breath, exercise intolerance Cardiovascular: denies: chest pain, palpitation, edema, paroxysmal nocturnal dyspnea, orthopnea Gastrointestinal: denies: nausea, vomiting, diarrhea, constipation, abd pain, GI bleeding Musculoskeletal: denies: pain, tenderness, stiffness, swelling, arthritis/ arthralgias Neurological: denies: numbness, syncope, seizure, weakness - Objective Allergies/Adverse Reactions: Allergies Allergy/AdvReac Type Severity Reaction Status Date / Time No Known Drug Allergies Allergy Verified 08/21/16 23:54 Visit Medications: Current Medications Acetaminophen (Tylenol) 650 mg PO Q4H PRN PRN Reason: Headache/Fever/Mild Pain (1-3) Atorvastatin Calcium (Lipitor) 40 mg PO DAILY [facility] Last Admin: 12/31/18 11:03 Dose: 40 mg Enoxaparin Sodium (Lovenox) 40 mg SC 0900 [facility] Last Admin: 12/31/18 11:04 Dose: Not Given Magnesium Sulfate 1 gm/ Sodium (Chloride) 102 mls @ 102 mls/hr IV PRN PRN PRN Reason: MAG LEVEL 1.4 - 2.0 Magnesium Sulfate 2 gm/ Device 50 mls @ 50 mls/hr IVPB ASDIR PRN PRN Reason: MAGNESIUM < 1.4 Lactated Ringer's (Lactated Ringer's) 1,000 mls @ 75 mls/hr IV .[id number] [facility] Last Admin: 12/31/18 02:15 Dose: 1,000 mls Hydrocortisone Sodium Succinate 50 mg/ Sodium Chloride 50.4 mls @ 50 mls/hr IVPB BID [facility] Last Admin: 12/31/18 11:03 Dose: 50.4 mls Magnesium Oxide (Magnesium Oxide) 400 mg PO BIDPRN PRN PRN Reason: FOR SERUM MAG 1.4 - 2.0 Magnesium Oxide (Magnesium Oxide) 800 mg PO PRN PRN PRN Reason: FOR SERUM MAG < 1.4 Ccu Electrolyte (Replacement Protocol) 0 each FS PRN PRN PRN Reason: FOR ELECTROLYTE REPLACEMENT Ondansetron HCl (Zofran Odt) 4 mg PO Q6H PRN PRN Reason: Nausea/Vomiting Ondansetron HCl (Zofran) 4 mg IVP Q6H PRN PRN Reason: Nausea/Vomiting Pantoprazole Sodium (Protonix) 40 mg IVP DAILY [facility] Last Admin: 12/31/18 11:03 Dose: 40 mg Sodium Chloride (Flush - Normal Saline) 10 ml IVF Q12HR [facility] Last Admin: 12/31/18 11:03 Dose: 10 ml Sodium Chloride (Flush - Normal Saline) 10 ml IVF PRN PRN PRN Reason: Saline Flush Sodium Chloride (Normal Saline Pf) 10 ml FS PRN PRN PRN Reason: RECONSTITUTION Vital Signs & Weight: Vital Signs Temp Pulse Resp BP BP BP BP 12/31/18 17:03 98.2 F 81 20 142/71 H 12/31/18 16:00 98.6 F 66 18 122/60 12/31/18 13:43 97.9 F 78 18 143/67 H 12/31/18 11:28 98.6 F 61 16 129/60 12/31/18 11:05 12/31/18 10:05 131/62 139/62 12/31/18 07:49 98.7 F 70 18 134/68 Pulse Ox 12/31/18 17:03 95 12/31/18 16:00 96 12/31/18 13:43 98 12/31/18 11:28 95 12/31/18 11:05 92 L 12/31/18 10:05 12/31/18 07:49 92 L Weight 153 lb 6.4 oz - Physical Exam General: alert & oriented x3, no apparent distress HEENT: mucus membranes moist, normocephaly Neck: supple neck, midline trachea Cardiac: regular rate and rhythm, no murmur Lungs: clear to auscultation, no wheeze, rales, rhonchi Neuro: grossly intact, coordination normal Abdomen: active bowel sounds, soft, non-tender Skin: clear Musculoskeletal: normal range of motion, no pain - Labs Result Diagrams: 12/31/18 04:55 12/31/18 04:55 Troponin/CKMB Troponin I 3.717 ng/mL (< 0.028) H* 12/28/18 04:10 - Telemetry Sinus rhythms and dysrhythmias: sinus rhythm - Assessment/Plan Assessment/Plan: 1. Sycope. 2. Bradycardia arrest. 3. Aortic valve sclerosis. 4. Normal LV function. 5. NSTEMI type 2 WHO type of DC, demand ischemia. 6. Hypotension requiring pressors. 7. Anemia PLAN: - Repeat H&H lower this morning. She has received a unit of blood and she physically feels better. - If hgb stable will plan on doing PPM tomorrow morning.
[2018-12-31 21:32] LABS: Hemoglobin 9.2 g/dL (12.0-16.0)
[2019-01-01 06:03] LABS: #Basophils 0.1 thou/uL (0.0-0.2); #Eosinphils 0.1 thou/uL (0.0-0.7); #Lymphocytes 1.4 thou/uL (1.20-3.40); #Monocytes 0.7 thou/uL (0.11-0.59); %Basophils 0.6 % (0.0-1.0); %Eosinophils 1.4 % (0.0-10.0); %Lymphocytes 14.8 % (21.0-51.0); %Monocytes 7.3 % (0.0-10.0); %Neutrophils 75.9 % (42.0-75.0); Hemoglobin 9.8 g/dL (12.0-16.0); Mean Corpuscular HGB CONC 33.4 g/dL (32.0-36.0); Mean Corpuscular Hemoglobin 28.9 pg (27.0-31.0); Mean Corpuscular Volume 86.5 fL (78.0-98.0); Mean Platelet Volume 7.2 fL (7.4-10.4); Platelet Count 212 thou/uL (130-400); RBC Distribution Width 13.4 % (11.5-14.5); White Blood Cell (WBC) Count 9.2 thou/uL (4.8-10.8)
[2019-01-01 06:24] LABS: Anion Gap 10 mmol/L (10-20); BUN (Urea Nitrogen) 20 mg/dL (9.8-20.1); Calc. Creatinine Clearance 60 mL/min (70-130); Calcium 7.6 mg/dL (7.8-10.44); Carbon Dioxide 21 mmol/L (23-31); Chloride 111 mmol/L (98-107); Estimated GFR-MDRD 68; Glucose 143 mg/dL (83-110); Potassium 3.4 mmol/L (3.5-5.1); Sodium 139 mmol/L (136-145)
--- NOTE | 2019-01-01 06:39 | PDOC.FM ---
- Subjective Subjective: Overnight pts IV infiltrated and nursing staff unable to obtain IV access despite multiple attempts by different nurses and attempt at midline. Pt is feeling well this morning, she is currently fasting for pacemaker placement. Denies pain, palpitations, chest pain, shortness of breath. - Objective MAR Reviewed: Yes Vital Signs & Weight: Vital Signs (12 hours) Temp Pulse Resp BP BP Pulse Ox 01/01/19 03:53 97.8 F 62 16 129/61 95 01/01/19 01:53 95 12/31/18 20:00 98.4 F 73 20 132/60 97 Weight Weight 69.581 kg Most Recent Monitor Data Heart Rate from ECG 69 NIBP 104/58 NIBP BP-Mean 73 Respiration from ECG 20 SpO2 98 I&O: 12/30/18 12/31/18 01/01/19 06:59 06:59 06:59 Intake Total 1410 540 575 Output Total 1200 1075 140 Balance 210 -535 435 Result Diagrams: 01/01/19 05:15 01/01/19 05:15 Phys Exam - Physical Examination Constitutional: NAD HEENT: moist MMs Neck: supple Respiratory: no wheezing, clear to auscultation bilateral Cardiovascular: RRR Gastrointestinal: soft, non-tender Musculoskeletal: no edema, pulses present Neurological: moves all 4 limbs Psychiatric: normal affect, A&O x 3 Skin: normal turgor Dx/Plan - Plan Plan: Bradycardia into 30s and subsequent v-tach. Echo: Aortic sclerosis, mild MR, mild TR, grade 1/3 diastolic dysfunction. EF of 65-70% - Cards consulted, appreciate recs. Pt needs pacemaker, currently NPO. Will hold lovenox. - Will place central line later this morning prior to procedure, spoke with laboratory scientist NSTEMI Type 2 Likely 2/2 demand ischemia in the setting of recent defibrillation and hypoperfusion. Cardiology following. Syncope Likely 2/[address] head normal. Scalp Laceration s/p 3 page - Wound care Normocytic Anemia 2/2 anemia of chronic disease - Baseline hgb 13, admission Hb 11.1. - FOBT negative. Now 7.8, but likely dilutional. Peripheral smear and retic pending Hypothyroidism - TSH low, d/c synthroid. Will resume dose at 150mcg daily in a couple days Acute Hypoxic Respiratory Failure 2/2 cardiac arrhythmia, resolved - Intubated 12/27-12/28 - Pulm consulted, appreciate recs HTN - Resume once indicated Cardiogenic shock resolved Shock Liver, resolved Diet: NPO VTE ppx: Lovenox GI ppx: Protonix Tubes/Lines: ET tube 12/27-12/28, R femoral CVC 12/27- 12/28, OG tube 12/27-12/28
[2019-01-01 06:52] VITALS: BMI 30.1
[2019-01-01] MEDS: Lactated Ringer's 1,000 ML IV SCH (07:41)
[2019-01-01] MEDS: Atorvastatin Calcium 40 MG TAB PO SCH (08:45)
[2019-01-01] MEDS: Pantoprazole 40 MG VIAL IVP SCH (09:21)
[2019-01-01] MEDS: Hydrocortisone Sod Succ/PF 50 MG in Sodium Chloride 0.9% 50 ML IVPB SCH (09:21)
--- NOTE | 2019-01-01 09:49 | PRG ---
DATE OF SERVICE: 01/01/2019 Ms. Mao is happy and alert this morning. Her hemoglobin this morning is back up to 9.8 following 1 unit of packed cells. I believe this is sufficient to proceed with her pacemaker placement with final decision will be Cardiology. In the event, her vital signs are stable. Her blood studies so far are consistent with a very mild anemia of chronic disease, likely exacerbated by fluid administration. Job ID: [id number]
--- NOTE | 2019-01-01 11:04 | PDOC.CNTRL ---
Central Line Procedure Note - Procedure Date: 01/01/19 Time: 10:30 - PreProcedure Diagnosis: Need for venous access for upcoming procedure. Multiple failed peripheral IV and midline attempts. - PostProcedure Diagnosis: same - Description Focused site: femoral vein: Right (previous CVC in left femoral vein with skin irritation over previous site. ) Ultrasound guidance: Yes Patient tolerated procedure: well (No complications) Procedure in Details: Sterile technique utilized. US used to identify right femoral vein confirm with compressibility. Skin anesthetized with lidocaine. Canulated under direct visualization. Seldinger technique used to place triple lumen CVC without difficulty. Ports aspirated and flushed x3. Stitched in place x2 sutures. Biopatch placed with tegaderm over top of catheter. No post op XR indicated. Dr. Bender present and proctored procedure. Form completed and sent to medical staff services. Addendum - Attending - Attending Attestation Date/Time: 01/01/19 1117 I was present to [place] Dr. Gillis.
[2019-01-01] MEDS ORDERED: Gentamicin 80 MG/2 ML VIAL ONE (13:54)
[2019-01-01] MEDS ORDERED: CEFAZOLIN 1 GM VIAL ONE (13:54)
[2019-01-01] MEDS ORDERED: Lidocaine 1% (PF) 30 ML VIAL ONE (14:01)
[2019-01-01] MEDS ORDERED: Midazolam HCl 2 mg/2 ml Vial ONE ×2 (14:53→15:04)
[2019-01-01] MEDS ORDERED: Acetaminophen/Codeine 30-300mg Tablet PO PRN (16:07)
--- NOTE | 2019-01-01 17:20 | RAD ---
PORTABLE CHEST: 01/01/19 HISTORY: Post cardiac device placement. FINDINGS/IMPRESSION: Dual lead pacemaker is noted. Leads appear adequately positioned. Lungs appear clear. No acute proces s. Prominent degenerative change and deformity at the right humeral head. POS: OFF
[2019-01-01] MEDS ORDERED: Iopamidol 370 76% 50 ML VIAL FS ONE (20:19)
[2019-01-02 05:44] LABS: #Basophils 0.1 thou/uL (0.0-0.2); #Eosinphils 0.9 thou/uL (0.0-0.7); #Lymphocytes 2.3 thou/uL (1.20-3.40); #Monocytes 0.8 thou/uL (0.11-0.59); %Basophils 1.1 % (0.0-1.0); %Eosinophils 8.8 % (0.0-10.0); %Lymphocytes 22.6 % (21.0-51.0); %Monocytes 8.3 % (0.0-10.0); %Neutrophils 59.3 % (42.0-75.0); Hemoglobin 9.3 g/dL (12.0-16.0); Mean Corpuscular HGB CONC 33.3 g/dL (32.0-36.0); Mean Corpuscular Hemoglobin 28.8 pg (27.0-31.0); Mean Corpuscular Volume 86.5 fL (78.0-98.0); Mean Platelet Volume 6.8 fL (7.4-10.4); Platelet Count 215 thou/uL (130-400); RBC Distribution Width 13.7 % (11.5-14.5); Red Blood Cell (RBC) Count 3.21 mill/uL (4.20-5.40); White Blood Cell (WBC) Count 10.1 thou/uL (4.8-10.8)
[2019-01-02 06:06] LABS: Anion Gap 10 mmol/L (10-20); BUN (Urea Nitrogen) 15 mg/dL (9.8-20.1); Calc. Creatinine Clearance 63 mL/min (70-130); Calcium 7.3 mg/dL (7.8-10.44); Carbon Dioxide 23 mmol/L (23-31); Chloride 111 mmol/L (98-107); Estimated GFR-MDRD 71; Glucose 81 mg/dL (83-110); Potassium 3.1 mmol/L (3.5-5.1); Sodium 141 mmol/L (136-145)
--- NOTE | 2019-01-02 06:26 | PDOC.FM ---
- Subjective Subjective: Patient resting comfortably in bed. Patient complains of some soreness/pain in her midchest and abdomen. She states it hurts to touch and with deep breaths. Denies any chest pain or palpitations. She is tolerating her diet well. She states she has not gotten up to walk much this hospital stay. Later on rounds - patient had just gotten up with PT. She was able to walk 500 ft. She did get winded and had to take a 2 min break. She lives at home by herself but her niece is in town to help her. - Objective MAR Reviewed: Yes Vital Signs & Weight: Vital Signs (12 hours) Temp Pulse Resp BP Pulse Ox 01/02/19 04:00 98.3 F 71 14 124/60 93 L 01/02/19 00:10 99.3 F 78 15 115/59 L 90 L 01/01/19 20:00 98.9 F 69 16 140/60 95 Weight Weight 70.035 kg Most Recent Monitor Data Heart Rate from ECG 69 NIBP 104/58 NIBP BP-Mean 73 Respiration from ECG 20 SpO2 98 I&O: 12/31/18 01/01/19 01/02/19 06:59 06:59 06:59 Intake Total 540 575 440 Output Total 1075 140 400 Balance -535 435 40 Result Diagrams: 01/02/19 05:12 01/02/19 05:12 Phys Exam - Physical Examination Constitutional: NAD HEENT: PERRLA, moist MMs, sclera anicteric head lac with [address], good healing Neck: no JVD, supple, full ROM Respiratory: clear to auscultation bilateral Cardiovascular: RRR, no significant murmur, no rub TTP of mid chest Gastrointestinal: soft, non-tender, no distention Musculoskeletal: pulses present trace edema Neurological: non-focal, normal sensation, moves all 4 limbs Psychiatric: normal affect, A&O x 3 Skin: no rash, normal turgor, cap refill <2 seconds Dx/Plan (1) Arrhythmia Code(s): I49.9 - CARDIAC ARRHYTHMIA, UNSPECIFIED Status: Acute (2) Bradycardia Code(s): R00.1 - BRADYCARDIA, UNSPECIFIED Status: Acute (3) Cardiogenic shock Code(s): R57.0 - CARDIOGENIC SHOCK Status: Acute (4) YVAN (obstructive sleep apnea) Code(s): G47.33 - OBSTRUCTIVE SLEEP APNEA (ADULT) (PEDIATRIC) Status: Acute (5) Orthostatic hypotension Code(s): I95.1 - ORTHOSTATIC HYPOTENSION Status: Acute (6) Osteoporosis Code(s): M81.0 - AGE-RELATED OSTEOPOROSIS W/O CURRENT PATHOLOGICAL FRACTURE Status: Acute (7) Hypothyroidism Code(s): E03.9 - HYPOTHYROIDISM, UNSPECIFIED Status: Chronic (8) Acute respiratory failure with hypoxia Code(s): J96.01 - ACUTE RESPIRATORY FAILURE WITH HYPOXIA Status: Resolved (9) HTN (hypertension) Code(s): I10 - ESSENTIAL (PRIMARY) HYPERTENSION Status: Chronic - Plan Plan: Bradycardia into 30s and subsequent v-tach Echo: Aortic sclerosis, mild MR, mild TR, grade 1/3 diastolic dysfunction. EF of 65-70% - Cards consulted, appreciate recs. S/p pacemaker placement. CXR confirming appropriate placement. - Patient TTP in med chest likely due to compressions - will give flexeril to see if this helps with pain. Will re-evaluate afterwards. NSTEMI Type 2 Likely 2/2 demand ischemia in the setting of recent defibrillation and hypoperfusion. Cardiology following. Syncope Likely 2/[address] head normal. Scalp Laceration s/p 3 page - Wound care. Patient to f/u to get page out after 10 days. Normocytic Anemia 2/2 anemia of chronic disease - Baseline Hgb 13, admission Hgb 11.1. - FOBT negative. Hgb trended down to 7.8 but now back up to 9.3. Retic count elevated, but immature retic fraction 0.4. Likely due to anemia of chronic disease. Hypothyroidism - TSH low. Will resume dose at 150mcg daily. Acute Hypoxic Respiratory Failure 2/2 cardiac arrhythmia, resolved - Intubated 12/27-12/28 - Pulm consulted, appreciate recs HTN - home meds Cardiogenic shock resolved Shock Liver, resolved Diet: HH VTE ppx: Lovenox GI ppx: Protonix Dispo: will clear with cards prior to discharge, likely later today or tomorrow
[2019-01-02] MEDS ORDERED: Potassium Chloride 20 MEQ TAB PO SCH ×2 (06:30→14:00)
[2019-01-02] MEDS ORDERED: Calcium Citrate 950 MG TAB PO SCH (06:30)
--- NOTE | 2019-01-02 07:33 | CCL ---
CARDIOLOGY PROCEDURE NOTE: This is an 83-year-old female with intermittent third degree heart block. Advised to undergo pacemake r insertion. She was taken to the cardiac mason tender restoration labor where she was prepped and draped in the sterile fa shion without any difficulties or complications. A dual chamber pacemaker from [employer] was implant ed. This is an MRI compatible device, an Linda S-type with two screw-in leads, one in the atrium and one in the ventricle. The pacemaker was set with an upper rate of 120 and a lower rate set at 60. No difficulties or complications were countered. She was given 3 mg of IV versed for the procedure. Thro ughout the procedure was monitored by an independent observer present for heart rate, blood pressure and O2 saturation and remained stable throughout the procedure. Total sedation time was 33 minutes.
[2019-01-02] MEDS ORDERED: Levothyroxine Sodium 100 MCG TAB PO SCH ×2 (09:00→09:26)
[2019-01-02] MEDS ORDERED: Cyclobenzaprine 10 MG TAB PO SCH (09:00)
[2019-01-02] MEDS: Atorvastatin Calcium 40 MG TAB PO SCH (09:51)
[2019-01-02] MEDS ORDERED: Levothyroxine 150 MCG TAB PO SCH (10:00)
--- NOTE | 2019-01-02 10:49 | PRG ---
DATE OF SERVICE: 01/02/2019 Ms. Mao is her usual cheerful self this morning. She is status post pacemaker placement and is doing quite well. She is still somewhat hypokalemic and this is being replaced appropriately. She can likely be discharged later today or tomorrow. Job ID: [id number]
[2019-01-02 11:43] VITALS: BP 128/60; TEMP 98.4
[2019-01-02 19:09] LABS: Albumin 2.4 g/dL (2.9-4.4); Alpha 1 0.3 g/dL (0.0-0.4); Alpha 2 0.7 g/dL (0.4-1.0); Beta 0.7 g/dL (0.7-1.3); Gamma 0.6 g/dL (0.4-1.8); Globulin, Total 2.4 g/dL (2.2-3.9); M-Spike Not Observed g/dL (Not Observed)
--- NOTE | 2019-01-02 20:18 | EKG ---
Test Reason : Blood Pressure : / mmHG Vent. Rate : 060 BPM Atrial Rate : 060 BPM P-R Int : 126 ms QRS Dur : 082 ms QT Int : 430 ms P-R-T Axes : 009 -05 -07 degrees QTc Int : 430 ms Atrial-paced rhythm Demand pacemaker; interpretation is based on intrinsic rhythm Possible Inferior infarct (cited on or before 21-AUG-2016) Abnormal ECG When compared with ECG of 27-DEC-2018 18:37, (Unconfirmed) Vent. rate has decreased BY 49 BPM Non-specific change in ST segment in Lateral leads Nonspecific T wave abnormality now evident in Anterior leads QT has shortened Confirmed by GUILLE BERMAN, DR. Ortega ([id number]) on 01/02/2019 8:17:45 PM Referred By: ANA Confirmed By:DR. Jordan HAN MD
--- NOTE | 2019-01-02 20:37 | EKG ---
Test Reason : Blood Pressure : / mmHG Vent. Rate : 072 BPM Atrial Rate : 072 BPM P-R Int : 158 ms QRS Dur : 080 ms QT Int : 430 ms P-R-T Axes : 039 004 000 degrees QTc Int : 470 ms Normal sinus rhythm Normal ECG When compared with ECG of 27-DEC-2018 18:37, (Unconfirmed) Vent. rate has decreased BY [address] no longer depressed in Anterior leads Confirmed by GUILLE BERMAN, SAaron ([id number]) on 01/02/2019 8:37:18 PM Referred By: ANA Confirmed By:DR. Jordan HAN MD
[2019-01-03] MEDS ORDERED: Levothyroxine 150 MCG TAB PO SCH (06:00)
--- NOTE | 2019-01-03 15:00 | DIS ---
DATE OF ADMISSION: 12/27/2018 DATE OF DISCHARGE: 01/02/2019 RESIDENT: Gina Babb MD ADMITTING ATTENDING: Juan Pablo Hickman MD DISCHARGE ATTENDING: Abram Jorge MD CONSULTS: Cardiology, Dr. Jerez; Pulmonology, Dr. Patrick; cardiac rehab; and PT/OT. PROCEDURES: Intubation, central line placement, cardiac cath, and pacemaker placement. PRIMARY DIAGNOSES: 1. Acute hypoxic respiratory failure secondary to cardiac arrhythmia. 2. Cardiogenic shock. 3. Bradycardia. 4. Rli-TJ-ocsmsvlaw myocardial infarction type 2. 5. Syncope. 6. Scalp laceration. 7. Normocytic anemia secondary to anemia of chronic disease. 8. Hypothyroidism. 9. Hypertension. DISCHARGE MEDICATIONS: 1. Tylenol 650 mg oral every 4 hours as needed. 2. Synthroid 150 mcg oral daily. 3. Flexeril 10 mg oral 3 times daily. 4. Ketoconazole cream 1 application topical daily as needed. 5. Tolterodine tartrate ER 4 mg oral daily. 6. Fluconazole 150 mg oral daily as needed. 7. Clobetasol propionate 1 application topical daily as needed. 8. Macrobid 1 tablet oral twice daily as needed. 9. [place] 1 tablet oral every 6 hours as needed. 10. Lipitor 1 tablet oral daily. 11. Fosamax 70 mg oral every week. 12. Diclofenac topical every 6 hours as needed. DISCONTINUED MEDICATIONS: 1. Metoprolol succinate. 2. Lisinopril. 3. Hydrochlorothiazide. 4. Synthroid 200 mcg oral daily. HISTORY OF PRESENT ILLNESS/HOSPITAL COURSE: This is an 83-year-old female, who presented to the emergency department following a syncopal episode prior to arrival. The patient was at [facility], when she started to feel as though she was going to faint, lost consciousness and fell, hitting the back of her head resulting in a laceration. The patient did endorse feeling dizzy and lightheaded after this event. In the emergency department, the patient had her scalp laceration repaired with 3 page. Head and cervical spine CT showed no abnormalities. Her chest x-ray was normal. While in the emergency department, the patient decompensated, developing bradycardia and hypotension leading to arrest. The patient was intubated, given atropine, epinephrine and shocked once. A central line was also placed at this time. The patient was transferred for the ICU and Pulmonology and Cardiology were consulted. The patient was placed on Levophed due to her blood pressure readings. Cardiology saw the patient and recommended a pacemaker placement. The patient had an echo that showed aortic sclerosis, mild MR, mild TR, grade 1/3 diastolic dysfunction and an EF of 65% to 70%. The patient was extubated with no issues. The patient was transfused 1 blood unit in order to undergo the pacemaker placement. The patient was extubated on 12/28/2018. The patient underwent pacemaker placement on 01/01/2019. She tolerated the procedure well. The day after the procedure, the patient was able to walk with physical therapy and was feeling much better. She did note some pain and discomfort in her chest and abdomen likely due from compressions. She was given pain medication to control this. The patient was also found to have a low TSH. Her Synthroid was restarted at a lower dose. DISPOSITION: Stable. DISCHARGE INSTRUCTIONS: 1. Location: Home. 2. Diet: Heart healthy. 3. Activity: Ad jose. 4. Followup: Follow up with Dr. Jerez within 2 weeks, Cardiac Rehab within 1 week, and Sy Erickson within 3 days. Job ID: [id number]
--- NOTE | 2019-01-04 09:53 | EKG ---
Test Reason : Blood Pressure : / mmHG Vent. Rate : 150 BPM Atrial Rate : 150 BPM P-R Int : 128 ms QRS Dur : 124 ms QT Int : 278 ms P-R-T Axes : 065 -11 000 degrees QTc Int : 439 ms Sinus tachycardia with frequent Premature ventricular complexes Right bundle branch block Inferior infarct , age undetermined Anterior infarct , age undetermined Abnormal ECG Confirmed by BRIAN PRUITT D.O. ([id number]), makeup editor DIANELYS MARTIN ([id number]) on 01/04/2019 9:53:28 AM Referred By: Confirmed By:BRIAN PRUITT D.O.
--- NOTE | 2019-01-04 09:53 | EKG ---
Test Reason : Blood Pressure : / mmHG Vent. Rate : 073 BPM Atrial Rate : 073 BPM P-R Int : 172 ms QRS Dur : 070 ms QT Int : 386 ms P-R-T Axes : 055 -09 -34 degrees QTc Int : 425 ms Normal sinus rhythm Inferior infarct , age undetermined Abnormal ECG Confirmed by BRIAN PRUITT D.O. ([id number]), food editor DIANELYS MARTIN ([id number]) on 01/04/2019 9:53:23 AM Referred By: Confirmed By:BRIAN PRUITT D.O.
== END 2019-01-02 16:05 | disposition home or self-care (01) | DRG 242 ==
LOC: ERS 11:33 → CCU 17:58 → 2SE 12-30 23:20
PROVIDERS: ADMIT Family Medicine; ATTEND Family Medicine
PROC: 3E033XZ Introduction of Vasopressor into Peripheral Vein, Percutaneous Approach (ICD-10-PCS; 2018-12-27)
PROC: 0HQ0XZZ Repair Scalp Skin, External Approach (ICD-10-PCS; 2018-12-27)
PROC: 0BH17EZ Insertion of Endotracheal Airway into Trachea, Via Natural or Artificial Opening (ICD-10-PCS; 2018-12-27)
PROC: 5A1935Z Respiratory Ventilation, Less than 24 Consecutive Hours (ICD-10-PCS; 2018-12-27)
PROC: 02HV33Z Insertion of Infusion Device into Superior Vena Cava, Percutaneous Approach (ICD-10-PCS; 2018-12-27)
PROC: B518ZZA Fluoroscopy of Superior Vena Cava, Guidance (ICD-10-PCS; 2018-12-27)
PROC: 30233N1 Transfusion of Nonautologous Red Blood Cells into Peripheral Vein, Percutaneous Approach (ICD-10-PCS; 2018-12-31)
PROC: 0JH606Z Insertion of Pacemaker, Dual Chamber into Chest Subcutaneous Tissue and Fascia, Open Approach (ICD-10-PCS; principal; 2019-01-01)
PROC: 02HK3JZ Insertion of Pacemaker Lead into Right Ventricle, Percutaneous Approach (ICD-10-PCS; 2019-01-01)
PROC: 02H63JZ Insertion of Pacemaker Lead into Right Atrium, Percutaneous Approach (ICD-10-PCS; 2019-01-01)
PROC: 4A023N7 Measurement of Cardiac Sampling and Pressure, Left Heart, Percutaneous Approach (ICD-10-PCS; 2019-01-01)
PROC: B2151ZZ Fluoroscopy of Left Heart using Low Osmolar Contrast (ICD-10-PCS; 2019-01-01)
PROC: B2111ZZ Fluoroscopy of Multiple Coronary Arteries using Low Osmolar Contrast (ICD-10-PCS; 2019-01-01)
PROC: 02HV33Z Insertion of Infusion Device into Superior Vena Cava, Percutaneous Approach (ICD-10-PCS; 2019-01-01)
PROC: B518ZZA Fluoroscopy of Superior Vena Cava, Guidance (ICD-10-PCS; 2019-01-01)
DX: I49.5 Sick sinus syndrome (principal); R57.0 Cardiogenic shock; J96.01 Acute respiratory failure with hypoxia; I21.A1 Myocardial infarction type 2; K72.00 Acute and subacute hepatic failure without coma; I44.2 Atrioventricular block, complete; I47.2 Ventricular tachycardia; I10 Essential (primary) hypertension; E78.5 Hyperlipidemia, unspecified; G47.33 Obstructive sleep apnea (adult) (pediatric); E03.9 Hypothyroidism, unspecified; I95.1 Orthostatic hypotension; M19.90 Unspecified osteoarthritis, unspecified site; M10.9 Gout, unspecified; N39.41 Urge incontinence; D63.8 Anemia in other chronic diseases classified elsewhere; E87.6 Hypokalemia; S01.01XA Laceration without foreign body of scalp, initial encounter; I35.0 Nonrheumatic aortic (valve) stenosis; W18.30XA Fall on same level, unspecified, initial encounter; Y92.9 Unspecified place or not applicable; Z90.49 Acquired absence of other specified parts of digestive tract; Z79.899 Other long term (current) drug therapy; M81.0 Age-related osteoporosis without current pathological fracture; E78.00 Pure hypercholesterolemia, unspecified; N32.81 Overactive bladder
CPT/HCPCS: 33249; 36415; 36416; 36430; 70450; 71045; 71275; 72125; 80048; 80053; 81003; 81015; 82274; 82330; 82607; 82728; 82747; 82803; 82805; 83540; 83550; 83605; 83735; 83880; 84100; 84145; 84165; 84166; 84439; 84443; 84481; 84484; 85025; 85046; 85060; 85610; 85652; 85730; 86140; 86850; 86900; 86901; 93005; 93010; 93306; 93798; 94002; 94003; 99152; 99153; C1785; C1898; C9113; J0461; J0690; J0696; J1580; J1644; J1650; J1720; J2001; J2060; J2250; J2704; J2997; J3475; J3480; J3490; J7050; J7070; P9016; Q9966; Q9967

== ENCOUNTER 2019-04-18 11:25 | Outpatient (CLI) | payer MEDICARE, BC ==
[~2019-04-18 11:25] MED LIST: Magnevist 469MG/ML 20 ML VIAL ONE
--- NOTE | 2019-04-18 13:48 | MRI ---
BRAIN MRI WITH AND WITHOUT CONTRAST: HISTORY: Optic disc edema. COMPARISON: None. FINDINGS: Brain MRI: Hemorrhage: No hemorrhage. Calvarium: Appropriate T1 marrow signal intensity. Midline brain parenchyma: Unremarkable. Cerebrum:No parenchymal mass, mass effect or midline shift. Age-appropriate atrophy. Cortical rangel-wh ite matter differentiation is preserved. Ventricles: No evidence of hydrocephalus. Sinuses and mastoid air cells: Adequate aeration. Diffusion: Central arterial flow is maintained. Absent restricted diffusion. Postcontrast images: No pathologic enhancement of the brain parenchyma. Orbit MRI: Symmetric signal intensity of the ocular rectus muscles. Both globes are intact. Retrobulbar fat is p reserved. The optic chiasm, prechiasmatic optic nerves, intracanalicular optic nerve and intraorbital optic nerve have symmetric signal intensity. No evidence of optic nerve T2 hyperintensit y or enhancement. No mass effect upon the optic chiasm. Visualized sella and pituitary stalk are unremarkable IMPRESSION: 1. Age-appropriate atrophy. Chronic small vessel ischemic change of the white matter. 2. Absent restricted diffusion. No acute infarct. 3. No pathologic enhancement of brain parenchyma. 4. Appropriate and essentially symmetric signal intensity of the optic nerves. Transcribed Date/Time: 04/18/2019 1:51 PM
== END 2019-04-18 11:26 | disposition home or self-care (01) ==
LOC: MRI 11:25
DX: H47.012 Ischemic optic neuropathy, left eye (principal); H47.10 Unspecified papilledema; I67.82 Cerebral ischemia; R90.89 Other abnormal findings on diagnostic imaging of central nervous system
CPT/HCPCS: 70553; 82565; A9579

== ENCOUNTER 2019-09-25 13:40 | Outpatient (CLI) | payer MEDICARE, BC ==
--- NOTE | 2019-09-25 14:46 | MMO ---
Bilateral MAMMO Bilat Screen [facility]. CLINICAL HISTORY: Patient is 84 years old and is seen for screening. The patient has no family history of breast cancer. The patient has no personal history of cancer. VIEWS: The views performed were: bilateral craniocaudal with tomosynthesis and bilateral mediolateral oblique with tomosynthesis. FILMS COMPARED: The present examination has been compared to prior imaging studies performed at [facility] on 07/25/2013, 09/02/2014, 10/07/2015 and 06/07/2018. This study has been interpreted with the assistance of computer-aided detection. MAMMOGRAM FINDINGS: The breasts are almost entirely fat. There are stable benign appearing calcifications seen in both breasts. There are no suspicious masses, suspicious calcifications, or new areas of architectural distortion. IMPRESSION: THERE IS NO MAMMOGRAPHIC EVIDENCE OF MALIGNANCY. A ROUTINE FOLLOW-UP MAMMOGRAM IN 1 YEAR IS RECOMMENDED. THE RESULTS OF THIS EXAM WERE SENT TO THE PATIENT. ACR BI-RADS Category 2 - Benign finding MAMMOGRAPHY NOTE: 1. A negative mammogram report should not delay a biopsy if a dominant of clinically suspicious mass is present. 2. Approximately 10% to 15% of breast cancers are not detected by mammography. 3. Adenosis and dense breasts may obscure an underlying neoplasm. Reported by: JANENE JENSEN MD Electonically Signed: [id number]
--- NOTE | 2019-09-25 15:53 | BD ---
Exam: DEXA Bone Density 09/25/19 HISTORY: Postmenopausal screening for osteoporosis. FINDINGS: Lumbar Spine: BMD (g/cm2) T-SCORE Z-SCORE L1 0.943 -0.4 2.0 L2 1.104 0.7 3.4 L3 1.141 0.5 3.4 L4 1.111 0.5 3.4 L1-L4 1.079 0.3 3.1 Femoral Neck: 0.693 -1.4 1.0 Total Femur: 0.938 -0.1 2.1 Impression: Osteopenia. POS: [facility]
== END 2019-09-25 13:41 | disposition home or self-care (01) ==
LOC: BICMAMMO 13:40
PROVIDERS: ATTEND Family Medicine
DX: Z12.31 Encounter for screening mammogram for malignant neoplasm of breast (principal); M81.0 Age-related osteoporosis without current pathological fracture; M85.859 Other specified disorders of bone density and structure, unspecified thigh
CPT/HCPCS: 77063; 77067; 77080

== ENCOUNTER 2020-04-04 16:19 | Inpatient (IN) | payer MEDICARE, BC ==
[2020-04-04] MEDS ORDERED: Fentanyl 100 MCG/2 ML VIAL ONE (16:49)
[2020-04-04] MEDS ORDERED: Piperacillin/Tazobactam 4.5 GM VIAL ONE (16:49)
[2020-04-04 17:33] LABS: Bacteria/HPF 3+ HPF (None Seen); Bilirubin Negative (Negative); Blood, Urine Trace (Negative); Clarity Extra Turbid (Clear); Glucose, Urine (Dipstick) Normal (Negative); Ketone, Urine 40 mg/dL (Negative); Leukocyte 500 Leu/uL (Negative); Nitrite Negative (Negative); Protein, Urine (Dipstick) 20 mg/dL (Neg-Trace); RBC/HPF 0-3 HPF (0-3); Specific Gravity, Urine 1.012 (1.002-1.036); Squamous Epithelial 0-3 HPF (0-3); Urobilinogen Normal mg/dL (Less than 2); WBC/HPF Greater than 50 HPF (0-3); pH, Urine 5.5 (5.0-9.0)
[2020-04-04 17:36] LABS: Hemoglobin 11.5 g/dL (12.0-16.0); Mean Corpuscular HGB CONC 32.3 g/dL (32.0-36.0); Mean Corpuscular Hemoglobin 28.6 pg (27.0-31.0); Mean Corpuscular Volume 88.5 fL (78.0-98.0); Mean Platelet Volume 6.5 fL (7.4-10.4); Platelet Count 326 thou/uL (130-400); RBC Distribution Width 13.4 % (11.5-14.5); Red Blood Cell (RBC) Count 4.01 mill/uL (4.20-5.40); White Blood Cell (WBC) Count 25.8 thou/uL (4.8-10.8)
[2020-04-04 17:54] LABS: Band 30 % (5-11); Burr Cells MODERATE= 6-15 cells (100X) (0-1/hpf); Lymphocytes 5 % (21-51); MDiff Complete? YES; Monocytes 5 % (0-10); Neutrophil 56 % (42-75); Platelet Morphology Comment Appears Adequate; Polychromasia SLIGHT = 2-3 cells (100X) (0-2/hpf); Reactive Lymphocytes 4 % (0-10); Schistocytes SLIGHT = 2-5 cells (100X) (0-1/hpf)
[2020-04-04] MEDS ORDERED: Ondansetron PF 4 MG/2 ML Vial ONE ×2 (17:59→18:17)
[2020-04-04] MEDS ORDERED: Norepinephrine 8 MG/0.9% NS 250 ML ONE (17:59)
[2020-04-04 18:02] LABS: ALT (SGPT) 11 U/L (8-55); AST (SGOT) 22 U/L (5-34); Alkaline Phosphatase 91 U/L (40-110); Anion Gap 28 mmol/L (10-20); BUN (Urea Nitrogen) 32 mg/dL (9.8-20.1); Bilirubin, Total 0.8 mg/dL (0.2-1.2); Calc. Creatinine Clearance 0 mL/min (70-130); Chloride 103 mmol/L (98-107); Globulin 2.2 g/dL (2.4-3.5); Glucose 93 mg/dL (83-110); Protein, Total 5.2 g/dL (6.0-8.3); Sodium 135 mmol/L (136-145)
[2020-04-04 18:06] LABS: Carbon Dioxide 8 mmol/L (23-31)
[2020-04-04 18:18] LABS: CKMB 1.7 ng/mL (0-6.6)
[2020-04-04] MEDS ORDERED: Promethazine HCl 25 MG/ML VIAL ONE (18:44)
--- NOTE | 2020-04-04 19:02 | RAD ---
CHEST ONE VIEW PORTABLE: History: Hypotensive. Nausea, vomiting, weakness. Comparison: 01-01-19 FINDINGS: Less than optimal inspiration. Left ICD. No confluent pneumonia, overt edema, pleural effusion, or ot her acute process. IMPRESSION: No significant acute intrathoracic disease. Stable from prior study. POS: [facility]
[2020-04-04] MEDS ORDERED: Lidocaine 1% PF 5 ML VIAL ONE (19:24)
[2020-04-04] MEDS ORDERED: Vancomycin 1.5 GRAM/300 ML BAG 1.5 GM in Premix Bag 1 BAG IVPB SCH (19:30)
--- NOTE | 2020-04-04 20:12 | RAD ---
EXAM: CHEST ONE VIEW HISTORY: Cough. Central line placement. COMPARISON: 04/04/2020 at 1650 hours. FINDINGS: Dual lead left subclavian cardiac pacemaking device remains in place. Cardiac silhouette is magnified by projection. There is calcification of the mitral valve annulus. Pulmonary vasculature is within normal limits. There is slight blunting of the left lateral costophrenic angle which may represent ti ny left pleural effusion versus pleural and parenchymal scarring. Lungs are otherwise clear. Remote fracture deformity the proximal right humerus is present. Degenerative changes are seen in the spine. Chest is overall stable compared to the prior exam. IMPRESSION: 1. Tiny left pleural effusion versus pleural and parenchymal scarring. 2. Indication for this examination is central line placement. However, no radiopaque catheter is seen overlying the chest. No pneumothorax is appreciated.
--- NOTE | 2020-04-04 20:49 | CT ---
CT Abdomen Pelvis WO Con 04/04/2020 8:00 PM HISTORY: Abdominal pain, worse in the left lower quadrant. Diverticulitis. COMPARISON: 01/20/2016 Technique: Multiple contiguous axial CT images are obtained through the abdomen and pelvis without IV contrast. Coronal reformats are provided. FINDINGS: This examination is limited for the evaluation of solid organs and vascular structures due to the lac k of intravenous contrast. Lower Chest: Partial visualization of cardiac pacemaking leads. There is minimal bibasilar linear sca rring and/or atelectasis. Liver: Grossly normal non-enhanced CT appearance. Gallbladder: Surgically absent. Pancreas: Grossly normal nonenhanced CT appearance. Spleen: Grossly normal nonenhanced CT appearance. Adrenals: Grossly normal nonenhanced CT appearance. Kidneys and ureters: Mild nonspecific symmetric bilateral perinephric stranding is seen. No renal or ureteral calculi are seen bilaterally, and there is no hydronephrosis. Urinary bladder: Urinary bladder has a normal CT appearance. Reproductive Organs: Uterus is small in size with calcifications present. Lymph Nodes: No enlarged lymph nodes. Bowel: Evidence of colonic diverticulosis. There is pericolonic inflammatory stranding and mild thick ening of the samayoa of the descending colon with colonic wall thickening and pericolic inflammatory changes extending to the level of the sigmoid colon. Findings are suggestive of colitis and likely di verticulitis. Follow-up evaluation after treatment of presumed diverticulitis is recommended to ensure resolution of the colonic wall thickening. Loops of small bowel are normal in caliber. Appendix: The appendix is normal in caliber. Peritoneum: Small amount of free fluid is seen in the pelvis. There is no fluid collection seen to hunt ggest an abscess. No free intraperitoneal gas is identified. Retroperitoneum: within normal limits. Vessels: Vascular calcifications are seen in the abdominal aorta and iliac arteries.. Abdominal Wall: Small fat-containing umbilical hernia is present. Inflammatory stranding is seen in the right inguinal region of uncertain etiology. Findings could be related to recent attempted central venous catheter placement, clinical correlation is recommended. Bones: Stable remote burst fracture L2 vertebral body is seen with retropulsion of the posterior infe rior endplate L2 vertebral body. Remaining vertebral body heights are within normal limits. Mild grade 1 anterolisthesis of L4 and L5 related to the facet degenerative changes. IMPRESSION: 1. Colitis involving the descending colon which extends from the level of the splenic flexure to the sigmoid colon. Multiple colonic diverticula are seen involving the descending colon as well as sigmoid colon, and findings are likely related to diverticulitis. No fluid collection is seen to sugg est an abscess, and there is no free intraperitoneal gas present. Follow-up evaluation after treatment of presumed diverticulitis is recommended to ensure resolution of colonic wall thickening. 2. Small amount of free fluid in the pelvis. 3. Inflammatory stranding and minimal fluid in the right inguinal region. This may be secondary to re cent attempt at central venous catheter placement. Clinical correlation is recommended. 4. Additional findings as described above.
--- NOTE | 2020-04-04 21:22 | OP ---
DATE OF PROCEDURE: 04/04/2020 PREOPERATIVE DIAGNOSIS: Septic shock. POSTOPERATIVE DIAGNOSIS: Septic shock. PROCEDURE PERFORMED: Left femoral central line. ANESTHESIA: Local. ESTIMATED BLOOD LOSS: Minimal. COMPLICATIONS: None. SPECIMEN: None. DESCRIPTION OF PROCEDURE: The left groin was prepped and draped in a sterile fashion. Local anesthetic was infiltrated over the left femoral vein. Femoral vein cannulated using a Seldinger needle and a wire was passed without any tension. A small ammon was made at the wire entrance site. The wire was used as a guide to dilate the femoral vein. A triple-lumen catheter was threaded to its fullest extent, sewn in place using closed silk. All ports were flushed and chloe blood without difficulties and flushed with a saline solution. Sterile dressings were placed. The line was available to be used immediately. No complications. Job ID: [id number]
[2020-04-04] MEDS ORDERED: Electrolyte Replacement Protocol 1 EACH FS PRN (21:41)
--- NOTE | 2020-04-04 21:49 | PDOC.FPRHP ---
- History of Present Illness Chief Complaint: Nausea, Abdominal pain History of Present Illness: Patient is an 85 yo female with PMH of HTN, HLD, Hypothyroid, YVAN, and Cardiac Arrhythmia w/ pacemaker who presents to the ED for N/V and abdominal pain. The patient reports that the symptoms have been present for about 1 month. During this time, she has alternated between diarrhea and constipation, but is currently not having BMs. She believes her last BM was 2 weeks ago. She reports that she vomits once a day and denies any blood in her vomit or BMs. She reports chills, but denies fever. She also reports weakness. She has been unable to tolerate PO intake. She denies pain with urination but reports that she is urina ting less frequently than normal. Patient reports that she has not taken any of her home meds in weeks due to N/V. ED Course: 3 L NS, Vancomycin, Zosyn, Zofran, Promethazine, Fentanyl Left femoral central line placed in ED and patient started on levophed - Allergies/Adverse Reactions Allergies Allergy/AdvReac Type Severity Reaction Status Date / Time No Known Drug Allergies Allergy Verified 08/21/16 23:54 - Home Medications Medication Instructions Recorded Confirmed Type Clobetasol Propionate [Clobetasol 1 applic TOP DAILY PRN 08/22/16 04/05/20 History Propionate 0.05% Cream] Fluconazole 150 mg PO DAILY PRN 08/22/16 04/05/20 History Ketoconazole [Ketoconazole 2% 1 applic TOP DAILY PRN 08/22/16 04/05/20 History Cream] Tolterodine Tartrate [Tolterodine 4 mg PO DAILY 08/22/16 04/05/20 History Tartrate ER] Alendronate Sodium [Fosamax] 70 mg PO Q7DAYS 12/27/18 04/05/20 History Atorvastatin Calcium [Lipitor] 1 tab PO DAILY 12/27/18 04/05/20 History Diclofenac Sodium [Diclofenac 1 gm TOP Q6H PRN 12/27/18 04/05/20 History Sodium 1% Gel] HYDROcodone Bit/APAP 5/325 [Whiteside] 1 tab PO Q6HR PRN 12/27/18 04/05/20 History Acetaminophen [Tylenol Regular 650 mg PO Q4H PRN #60 tab 01/02/19 04/05/20 Rx Strength] Aspirin 325 mg PO DAILY 04/05/20 04/05/20 History Calcium Citrate/Vitamin D3 1 each PO DAILY 04/05/20 04/05/20 History [Calcium Citrate - Vit D Tablet] Cyclobenzaprine [Flexeril] 10 mg PO TID PRN 04/05/20 04/05/20 History Diltiazem HCl [Diltiazem 24Hr CD] 240 mg PO DAILY 04/05/20 04/05/20 History Levothyroxine Sodium 112 mcg PO DAILY 04/05/20 04/05/20 History [Levothyroxine] Lisinopril/Hydrochlorothiazide 1 tablet PO DAILY 04/05/20 04/05/20 History [Lisinopril-Hctz 20-25 mg Tab] Propylene Glycol/PEG 400/PF 1 each OP DAILY 04/05/20 04/05/20 History [Systane 0.3-0.4% Eye Drops] Vitamin E 400 unit PO DAILY 04/05/20 04/05/20 History - History PMHx: HTN, HLD, hypothyroid, cardiac arrhythmia with pacemaker placement, YVAN, Giant cell temporal arteritis, overactive bladder, osteoporosis PSHx: pacemaker placement, Cholecystectomy, tonsillectomy, right elbow surgery FHx: Brother - DM, Mother - Melanoma Social: Denies t/a/d - Review of Systems General: reports: fever/chills, weight/appetite/sleep changes, fatigue Eyes: reports: vision changes ENT: denies: nasal congestion Respiratory: denies: cough, shortness of breath Cardiovascular: denies: chest pain, edema Gastrointestinal: reports: nausea, vomiting, diarrhea, constipation, abdominal pain. denies: GI bleeding Genitourinary: reports: dysuria. denies: incontinence Skin: denies: rashes, jaundice Musculoskeletal: reports: pain. denies: swelling Neurological: reports: weakness. denies: syncope Psychological: denies: anxiety, depression - Vital signs BP: 105/64 HR:132 RR: 21 Tmax: 97.8 Pox: 100% on RA Wt: 73kg - Physical Exam Constitutional: awake, alert and oriented -Constitutional: uncomfortable appearing HEENT: normocephalic and atraumatic, PERRLA -HEENT: dry mucous membranes Neck: supple, no JVD Heart: RRR, normal S1/S2, no edema Lungs: CTAB, no respiratory distress Abdomen: soft -Abdomen: decreased bowel sounds, guarding and tender to palpation of LUQ, LLQ, and RLQ; no rigidity Musculoskeletal: normal structure, normal tone Neurological: no focal deficit, normal sensation Skin: no rash/lesions, no jaundice Heme/Lymphatic: no unusual bruising or bleeding, no purpura, no petechia Psychiatric: normal mood and affect, good judgment and insight FMR H&P: Results - Labs Result Diagrams: 04/05/20 04:21 04/05/20 03:51 Lab results: WBC 25.8 thou/uL (4.8-10.8) H 04/04/20 17:26 Hgb 11.5 g/dL (12.0-16.0) L 04/04/20 17:26 Hct 35.5 % (36.0-47.0) L 04/04/20 17:26 MCV 88.5 fL (78.0-98.0) 04/04/20 17:26 Plt Count 326 thou/uL (130-400) 04/04/20 17:26 Band Neuts % (Manual) 30 % (5-11) H 04/04/20 17:26 Sodium 135 mmol/L (136-145) L 04/04/20 17:26 Potassium 4.0 mmol/L (3.5-5.1) 04/04/20 17:26 Chloride 103 mmol/L (98-107) 04/04/20 17:26 Carbon Dioxide 8 mmol/L (23-31) L* 04/04/20 17:26 BUN 32 mg/dL (9.8-20.1) H 04/04/20 17:26 Creatinine 1.91 mg/dL (0.6-1.1) H 04/04/20 17:26 Glucose 93 mg/dL (83-110) 04/04/20 17:26 Lactic Acid 2.0 mmol/L (0.5-2.2) 04/04/20 20:57 Calcium 8.0 mg/dL (7.8-10.44) 04/04/20 17:26 Total Bilirubin 0.8 mg/dL (0.2-1.2) 04/04/20 17:26 AST 22 U/L (5-34) 04/04/20 17: ALT 11 U/L (8-55) 04/04/20 17:26 Alkaline Phosphatase 91 U/L (40-110) 04/04/20 17:26 CK-MB (CK-2) 1.7 ng/mL (0-6.6) 04/04/20 17:26 Serum Total Protein 5.2 g/dL (6.0-8.3) L 04/04/20 17: Albumin 3.0 g/dL (3.4-4.8) L 04/04/20 17: Urine Ketones 40 mg/dL (Negative) A 04/04/20 17: Urine Blood Trace (Negative) A 04/04/20 17: Urine Nitrite Negative (Negative) 04/04/20 17: Ur Leukocyte Esterase 500 Adalid/uL (Negative) A 04/04/20 17: Urine RBC 0-3 HPF (0-3) 04/04/20 17: Urine WBC Greater than 50 HPF (0-3) A 04/04/20 17: Ur Squamous Epith Cells 0-3 HPF (0-3) 04/04/20 17:07 Urine Bacteria 3+ HPF (None Seen) A 04/04/20 17:07 - EKG Interpretation EKG: Sinus tachy HR [address] depression noted in V4 and V5, viewed reports from previous EKG which noted nonspecific ST changes in lateral leads - Radiology Interpretation CT scan - abdomen Status: image reviewed by me, report reviewed by me Additional comment: 1. Colitis involving the descending colon which extends from the level of the splenic flexure to the sigmoid colon, multiple colonic diverticula, no fluid collection suggesting abscess is seen, no free intraperitoneal gas present, recommend f/u evaluation to ensure resolution of colonic wall thickening 2. small amount of free fluid in pelvis 3. Inflammatory stranding and minimal fluid in the right inguinal region, may be 2/2 to recent attempt at central venous catheter placement Chest x-ray Status: image reviewed by me, report reviewed by me Additional comment: no significant acute intrathoracic disease, Left ICD FMR H&P: A/P - Problem List (1) Septic shock Current Visit: Yes Status: Acute Code(s): A41.9 - SEPSIS, UNSPECIFIED ORGANISM; R65.21 - SEVERE SEPSIS WITH SEPTIC SHOCK (2) Diverticulitis Current Visit: Yes Status: Acute Code(s): K57.92 - DVTRCLI OF INTEST, PART UNSP, W/O PERF OR ABSCESS W/O BLEED (3) Overactive bladder Current Visit: No Status: Chronic Code(s): N32.81 - OVERACTIVE BLADDER (4) Arrhythmia Current Visit: No Status: Chronic Code(s): I49.9 - CARDIAC ARRHYTHMIA, UNSPECIFIED (5) YVAN (obstructive sleep apnea) Current Visit: No Status: Chronic Code(s): G47.33 - OBSTRUCTIVE SLEEP APNEA (ADULT) (PEDIATRIC) (6) Osteoporosis Current Visit: No Status: Chronic Code(s): M81.0 - AGE-RELATED OSTEOPOROSIS W/O CURRENT PATHOLOGICAL FRACTURE (7) UTI (urinary tract infection) Current Visit: Yes Status: Acute (8) HTN (hypertension) Current Visit: No Status: Chronic Code(s): I10 - ESSENTIAL (PRIMARY) HYPERTENSION (9) Hypothyroidism Current Visit: No Status: Chronic Code(s): E03.9 - HYPOTHYROIDISM, UNSPECIFIED (10) HLD (hyperlipidemia) Current Visit: No Status: Chronic Code(s): E78.5 - HYPERLIPIDEMIA, UNSPECIFIED - Plan Septic shock 2/2 to diverticulitis and UTI - s/p 3 L NS, vanc, zosyn in ED - L. femoral central line placed in ED with levophed started, continue with goal MAP >65 - LA: 4.1 > 2.0, will continue fluids of LR @ 100 mls/hr - will start patient on metronidazole and cefepime - bl cx and urine cx obtained in ED - monitor UO with parker, plan to remove TIP - frequent abdominal exams - CT abdomen: diverticulitis, no abscess or signs of perforation - UA: Turbid, 500 LE, >50 WBCs, 3+ bacteria Anion Gap Metabolic Acidosis 2/2 to Lactic acidosis - due to above - LA: 4.1 > 2.0 - A - Bicarb: 8 - repeat bmp tomorrow morning JOLE - Cr: 1.91 - s/p fluid as above, will continue LR @ 100 mls/hr - CrCl of 26, will avoid lovenox and give heparin for dvt ppx - repeat bmp tomorrow morning Indeterminate trop - likely 2/2 to septic shock - Trop: 0.029 - no active chest pain - EKG: very mild ST depression in V4 and V5, nonspecific ST segment changes in lateral leads noted on previous EKGs - will continue to trend trops Chronic medical conditions: HTN - holding antihypertensives due to hypotension and need for levophed HLD - continue home medication once no longer NPO (40 mg atorvastatin) Hypothyroid - continue home medication once no longer NPO (0.112 mg Levothyroxine) Osteoporosis - continue home medication once no longer NPO (Weekly Fosamax 70mg) Overactive bladder - continue home medication once no longer NPO (4 mg Tolterodine) Cardiac Arrhythmia - has pacemaker, aware YVAN - CPAP at night, CPAP ordered History of Giant Cell Arteritis - aware, completed steroid taper *Of note, patient has not taken any home medications in weeks due to N/V PCP: [facility] Code: FULL Diet: NPO Abx: Metronidazole and Cefepime starting 04/05; s/p vanc and zosyn on 04/04 DVT ppx: Heparin GI ppx: not yet indicated, consider if prolonged ICU stay Fluids: LR @ 100 mls/hr Dispo: will admit to CCU for further medical management; likely LOS > 48 hours. FMR H&P: Upper Level - Plan Date/Time: 04/04/202147 IUche DO, have evaluated this patient and agree with findings/plan as outlined by policy intern resident. Pertinent changes/additions are listed here. 85 yo F presents via ems for feeling ill today She reports having GI issues over the past month or so including alternating diarrhea and constipation, vomiting and inability to tolerate PO, outpt mgmt has been unsuccessful. currently she reports a significant amount of abdominal pain, nausea, and dysuria. Initially presented to the ED w/ BP 72/38, bolused >30ml/kg w/o resolution, L fem CVC placed and levophed began. labs are sig for wbc/cr/LA elevation. UA +. trop ind. bicarb low. started on vanc and zosyn. CT abd reveals evidence of diverticulits, no abscess or free air apparent. On our exam pts blood pressure has improved to 105/82, still tachycardic into 110s, paced rhythm. dry MM, no jvd, lungs ctab, regular rhythm, no bowel sounds, no rigidity, guarding present with sig tenderness over lower abdomen, pulses present throughout, no TENISHA. Septic shock 2/2 severe diverticulitis, continue levo- titrate to MAP>65, monitor urine output, appears to be adequately fluid resusc. continue maintenance and monitor uop w/ parker. will treat high risk comm aquired diverticulitis with cefepime and metronidazole. Lactic acidosis has resolved at this point, continue to monitor. JOEL likely prerenal, continue ivf and repeat cmp. UTI likely from translocation, abx above should cover, remove parker as soon as levo can be dc'd. pt will be npo, with hep ppx considering renal function. admit to ccu. please see policy intern note for mgmt of chronic medical conditions. Addendum - Attending - Attending Attestation Date/Time: 04/05/20 0120 I personally evaluated the patient and discussed the management with Dr. Kendall on 04/04/2020 I agree with the History, Examination, Assessment and Plan documented above with any addition or exceptions noted below -85 yo female with PMH of HTN, HLD, Hypothyroid, YVAN, and pacemaker placement who presents to the ED for N/V and abdominal pain. The patient reports that the symptoms have been present for about 1 month. During this time, she has alternated between diarrhea and constipation, but is currently not having BMs. She believes her last BM was 2 weeks ago. She reports that she vomits once a day and denies any blood in her vomit or BMs. She reports chills, but denies fever. She also reports weakness. She has been unable to tolerate PO intake. She denies pain with urination but reports that she is urinating less frequently than normal. Patient reports that she has not taken any of her home meds in weeks due to N/V. PMH/PSH/Meds/SH reviewed and agree with resident's documentation. Afebrile P115 BP 105/64 RR21. Exam repeated by me and agree with resident's findings. Labs: WBC=25.8, H/H=11.5/35.5, Sdo=407, Diff=56N/30B/5L, Jb=956, K=4.0, Gw=656, CO2=8, BUN/Cr=32/1.91, Gluc=93, ALT/AST=/22, Lactic acid=4.1->2.0, U/A=(+)LE, WBC>50, 3+bact, CXR-NAD, CT abd- inflammatory stranding and colonic wall thickening of descending colon c/w diverticulitis, no fluid collection, no gas. A/P: 1) Septic shock secondary to diverticulitis - Admit to ICU. Continue IVF, levophed. Monitor urine output. Blood and urine cultures collected. 2) Diverticulitis - continue cefepime and flagyl. Serial abd exams. NPO for now. 3) UTI- urine culture collected. Continue current abx.
[2020-04-04] MEDS ORDERED: Morphine 2 MG/ML VIAL SLOW IVP PRN (21:52)
[2020-04-04 22:40] LABS: SARS-CoV-2 NAA Rapid Test Not Detected (NotDetected)
[2020-04-04] MEDS: Lactated Ringer's 1,000 ML IV SCH (22:48)
[2020-04-05 01:04] LABS: Troponin I 0.049 ng/mL (< 0.028)
[2020-04-05] MEDS ORDERED: Ondansetron PF 4 MG/2 ML Vial ONE ×3 (03:31→09:50)
[2020-04-05] MEDS: Ondansetron PF 4 MG/2 ML Vial IVP PRN ×2 (03:35→09:10)
[2020-04-05 04:14] LABS: Lactic Acid 2.1 mmol/L (0.5-2.2)
[2020-04-05 04:21] LABS: Troponin I 0.075 ng/mL (< 0.028)
[2020-04-05 04:36] LABS: BUN (Urea Nitrogen) 33 mg/dL (9.8-20.1); Calc. Creatinine Clearance 24 mL/min (70-130); Calcium 7.4 mg/dL (7.8-10.44); Chloride 109 mmol/L (98-107); Glucose 80 mg/dL (83-110); Sodium 137 mmol/L (136-145)
[2020-04-05 04:39] LABS: Carbon Dioxide Less than 8 mmol/L (23-31)
[2020-04-05] MEDS ORDERED: Sodium Bicarb 50 MEQ/50 ML Abboject 8.4% SYRINGE ONE ×2 (05:21→08:56)
[2020-04-05 05:45] LABS: Band 29 % (5-11); Hemoglobin 10.9 g/dL (12.0-16.0); Lymphocytes 3 % (21-51); MDiff Complete? YES; Mean Corpuscular HGB CONC 30.1 g/dL (32.0-36.0); Mean Corpuscular Hemoglobin 26.5 pg (27.0-31.0); Mean Platelet Volume 7.2 fL (7.4-10.4); Monocytes 7 % (0-10); Neutrophil 61 % (42-75); Platelet Count 450 thou/uL (130-400); RBC Distribution Width 13.4 % (11.5-14.5); White Blood Cell (WBC) Count 41.9 thou/uL (4.8-10.8)
[2020-04-05] MEDS ORDERED: Sodium Bicarb 50 MEQ/50 ML Abboject 8.4% SYRINGE IVP SCH ×3 (05:45→14:00)
[2020-04-05] MEDS ORDERED: Lactated Ringer's 1,000 ML IV SCH ×3 (06:00→14:57)
[2020-04-05] MEDS ORDERED: Cefepime 2 GM in Sodium Chloride 0.9% 100 ML IVPB SCH ×3 (06:00→09:00)
--- NOTE | 2020-04-05 06:09 | PDOC.FM ---
- Subjective Subjective: Patient doing okay. Continues to endorse abdominal pain, worst on the left. A&Ox4, able to communicate a phone call she would like me to make to one of her caretakers. - Objective Vital Signs & Weight: Weight Weight 72.6 kg Result Diagrams: 04/05/20 04:21 04/05/20 12:10 Phys Exam - Physical Examination Constitutional: NAD HEENT: moist MMs Neck: supple, full ROM Respiratory: no wheezing, clear to auscultation bilateral Cardiovascular: RRR, no significant murmur Gastrointestinal: soft, positive bowel sounds ttp primarily LUQ and LLQ Musculoskeletal: no edema Neurological: non-focal, moves all 4 limbs Psychiatric: normal affect, A&O x 3 Dx/Plan - Plan Plan: #Septic shock 2/2 to diverticulitis and UTI - s/p 3 L NS, vanc, zosyn in ED - L. femoral central line placed in ED with levophed started, continue with goal MAP >65 - LA: 4.1 > 2.0, will increase fluids to LR @ 115 mls/hr - started on metronidazole and cefepime, will continue - bl cx and urine cx obtained in ED, will follow - monitor UO with parker, plan to remove TIP - frequent abdominal exams - CT abdomen: diverticulitis, no abscess or signs of perforation - UA: Turbid, 500 LE, >50 WBCs, 3+ bacteria #Anion Gap Metabolic Acidosis 2/2 to Lactic acidosis - due to above - LA: 4.1 > 2.0 - A - Bicarb: 10, given 1 amp bicarb; will give another amp of bicarb and recheck BMP #JOEL - Cr: 1.91>2.05>2.0 - s/p fluid as above, will increase to LR @ 115 mls/hr -continue to monitor with fluids #Indeterminate trop - likely 2/2 to septic shock - Trop: 0.029>0.049>0.075>0.103 - no active chest pain - EKG: very mild ST depression in V4 and V5, nonspecific ST segment changes in lateral leads noted on previous EKGs - will continue to trend trops #HFpEF -Last echo 12/20: EF 65-70%, Grade 1/3 diastolic dysfunction #Chronic medical conditions: HTN - holding antihypertensives due to hypotension and need for levophed HLD - continue home medication once no longer NPO (40 mg atorvastatin) Hypothyroid - continue home medication once no longer NPO (0.112 mg Levothyroxine) Osteoporosis - continue home medication once no longer NPO (Weekly Fosamax 70mg) Overactive bladder - continue home medication once no longer NPO (4 mg Tolterodine) Cardiac Arrhythmia - has pacemaker, aware YVAN - CPAP at night, CPAP ordered History of Giant Cell Arteritis - aware, completed steroid taper *Of note, patient has not taken any home medications in weeks due to N/V PCP: [facility] Code: FULL Diet: NPO Abx: Metronidazole and Cefepime starting 04/05; s/p vanc and zosyn on 04/04 DVT ppx: Heparin GI ppx: not yet indicated, consider if prolonged ICU stay Fluids: LR @ 115 mls/hr Dispo: admitted to CCU for further medical management including fluid re suscitation, electrolyte monitoring, and IV abx Addendum - Attending - Attending Attestation Date/Time: 04/05/20 1323 I personally evaluated the patient and discussed the management with Dr. Rogel I agree with the History, Examination, Assessment and Plan documented above with any addition or exceptions noted below. 85 yo female admitted for severe diverticulitis with associated colitis (likely infectious but possible segmental) with septic shock. Patient still awaiting CCU bed. COVID negative. Will change antibx to meropenem due to risk for ESBL. Will cover co-existing UTI. Trend inflammatory markers. Pulm consulted. Serial abd exams due to risk for peritonitis and perf. Surg consulted. Stool studies pending. Blood cx pending. Trop is intermittent and likely related to demand as well as renal perfusion. No evidence of cardiac problems. Trend if still elevated. EF adequate from previous ECHO. JOEL with metabolic acidosis (likely but no pH at this time) and elevated anion gap. Continue bicarb. Trend labs. Improve perfusion. Parker cath to monitor UOP. BUN/Cr increasing due to hypovolemia. Increase IVFs. Lactic acid improved. Concern for ileus due to patient report vs constipation. Continue to monitor. No bowel enlargement on imagine. Made NPO for colitis/diverticulitis. Poor prognosis. Monitor closely. Ching
[2020-04-05] MEDS ORDERED: Cefepime 2 GM VIAL ONE (06:35)
[2020-04-05 07:22] LABS: Anion Gap 24 mmol/L (10-20); BUN (Urea Nitrogen) 33 mg/dL (9.8-20.1); Calc. Creatinine Clearance 24 mL/min (70-130); Carbon Dioxide 10 mmol/L (23-31); Chloride 109 mmol/L (98-107); Glucose 100 mg/dL (83-110); Sodium 139 mmol/L (136-145)
[2020-04-05 07:25] LABS: Troponin I 0.103 ng/mL (< 0.028)
[2020-04-05] MEDS ORDERED: metroNIDAZOLE 500 MG in Premix Bag 1 BAG IVPB SCH (08:00)
[2020-04-05] MEDS ORDERED: Norepinephrine 4 MG/4 ML VIAL ONE ×2 (08:15→14:13)
[2020-04-05] MEDS ORDERED: metroNIDAZOLE 500 MG/100 ML BAG ONE (08:54)
[2020-04-05] MEDS: Lactated Ringer's 1,000 ML IV SCH (08:55)
[2020-04-05] MEDS ORDERED: Meropenem 1 GM in Sodium Chloride 0.9% 100 ML IVPB SCH ×2 (09:48→21:00)
[2020-04-05] MEDS ORDERED: PHENYLEPHRINE-NS 100 MCG/ML 10 ML SYRINGE ONE (09:50)
[2020-04-05] MEDS ORDERED: Succinylcholine 200 MG/10 ml SYRINGE FS ONE (09:50)
[2020-04-05] MEDS ORDERED: Rocuronium Bromide 10 MG/ML (10ML VIAL) ONE (09:50)
[2020-04-05] MEDS ORDERED: PROPOFOL 200 MG/20 ML VIAL ONE (09:50)
[2020-04-05] MEDS ORDERED: Lidocaine 1% PF 5 ML VIAL ONE (09:50)
[2020-04-05] MEDS: Heparin 5,000 UNITS/ML VIAL SC SCH ×3 (10:30→23:22)
[2020-04-05] MEDS ORDERED: MEROPENEM 1 GM/50 ML 1 GM in Premix Bag 1 BAG IVPB SCH (11:00)
[2020-04-05 12:47] LABS: Anion Gap 24 mmol/L (10-20); BUN (Urea Nitrogen) 33 mg/dL (9.8-20.1); Calc. Creatinine Clearance 22 mL/min (70-130); Calcium 7.1 mg/dL (7.8-10.44); Carbon Dioxide 11 mmol/L (23-31); Chloride 107 mmol/L (98-107); Glucose 132 mg/dL (83-110); Potassium 3.3 mmol/L (3.5-5.1); Sodium 139 mmol/L (136-145)
[2020-04-05] MEDS ORDERED: Potassium Chloride 40 MEQ/100 ML PREMIX BAG IVPB SCH (14:00)
[2020-04-05] MEDS ORDERED: Lactated Ringer's 500 ML IV SCH (14:00)
--- NOTE | 2020-04-05 14:00 | PDOC.BPN ---
- Brief Progress Note Ms. Mao is laying in bed, Trendelenburg position. Her main complaint is abdominal pain that she feels is somewhat worse compared to this morning. On physical exam, her abdomen is soft, not distended but is extremely tender to mild palpation, particularly left side of abdomen. Bowel sounds present. Urine output is 50cc/hr over the past 2 hours, yellow. Her levaphed was weaned to 20 with MAPs adequate. Continues to be tachycardic, rate ~108. Lab recheck reviewed, will give 1 amp bicarb, 40meq potassium. Also give 500cc bolus considering worsening renal function. Concern for worsening perfusion, particularly to the gut. Dr. Dickinson to evaluate patient today as well. Will reevaluate frequently.
[2020-04-05] MEDS ORDERED: Sodium Bicarb 50 MEQ/50 ML VIAL ONE (15:03)
[2020-04-05 15:24] LABS: Actual Bicarbonate (HCO3a) 10.8 mEq/L (22-28); Analyzer IN Cardio ER; CO2 Tension 17.9 mmHg (35.0-45.0); Calcium, Ionized (arterial) 1.08 mmol/L (1.12-1.30); Carboxyhemoglobin (COHb) 0.3 gm% (0.0-3.0); Hemoglobin (Hb) 10.6 g/dL (12.0-16.0); Potassium - ABG Lab 3.29 mmol/L (3.70-5.30)
[2020-04-05 15:25] LABS: ALV-art Gradient 48.355 mmHg (0-20); Puncture Site LBA
[2020-04-05] MEDS ORDERED: Ketamine 50 MG/ML (10ML VIAL) ONE (15:29)
--- NOTE | 2020-04-05 15:37 | CON ---
DATE OF CONSULTATION: HISTORY OF PRESENT ILLNESS: Juana Mao is an 85-year-old female, who lives alone in [place]. I have spoken with the patient's brother, who live in [place]. Bernabe has power of obstetrics gyn, [phone]. The patient presented with a 1-2 week history of abdominal pain, problems with bowel movements, decreased urine output, nausea and vomiting. She was seen yesterday. Dr. Mead provided a femoral vein IV access. Yesterday, she was noted to have a creatinine of 2, BUN 33, GFR 23, deteriorated today to 33, 2.23 and 21. Sodium 137. Potassium 3.3 today. Carbon dioxide on admission 8, it was 10 this morning and 11 on recheck. She has had minimal urine output, oliguric, acute renal failure. She had a CAT scan suggesting colitis, possibly diverticulitis, left colon. The patient last year presented with bradycardic cardiac arrest, required a pacemaker for third-degree heart block. The block was seen by Dr. Jerez. She had an echocardiogram noting her to have a good ejection fraction. She has been seen by Dr. Jerez and Dr. Patrick last year. She has a history of open cholecystectomy right subcostal scar, tonsillectomy, right elbow surgery. PAST MEDICAL HISTORY: Hypertension, hyperlipidemia, hypothyroidism, urge incontinence, sleep apnea, osteoarthritis, osteoporosis, bradycardic, cardiac arrest, third-degree heart block requiring pacemaker placed last year. SOCIAL HISTORY: Tobacco, none. Alcohol, none. OUTPATIENT MEDICATIONS: 1. . 2. MiraLAX. 3. Calcium citrate. 4. Ketoconazole. 5. Hydrocodone. 6. Fluconazole. 7. Diclofenac sodium. 8. Flexeril. 9. Tylenol. 10. Lisinopril/hydrochlorothiazide 20/25 daily. 11. Diltiazem 24 hours CD 240 a day. 12. Atorvastatin daily. 13. Fosamax 70 mg every seven days. 14. Levothyroxine 112 mcg a day. 15. Tolterodine 4 mg a day. REVIEW OF SYSTEMS: Ten-point noncontributory. No known history of colonoscopy. PHYSICAL EXAMINATION: VITAL SIGNS: Heart rate is 115, respiratory rate 20, blood pressure 105/70. LUNGS: Clear to auscultation. CARDIAC: Regular rate and rhythm without murmur or gallop. ABDOMEN: Soft. Umbilical hernia, slightly tender, nonreducible, very small, probably fat. Right subcostal scar well healed. Abdomen is slightly distended, surgical abdomen. Tenderness diffusely with involuntary guarding. EXTREMITIES: No ankle edema. ASSESSMENT AND PLAN: 1. Acute renal failure, nonoliguric. Continue aggressive hydration, IV fluid bolus, increase fluid rate. 2. Severe acidosis and abdominal pain, refractory to medical management. Suspect possible ischemic bowel. We would recommend laparotomy. I have explained to the patient and her family per telephone. We will plan this today as an emergency. Risks of infection, bleeding, reoperation, stroke, myocardial infarction, , discussed. She will certainly be on the ventilator postoperatively. Job ID: [id number]
[2020-04-05 16:07] LABS: Anion Gap 23 mmol/L (10-20); BUN (Urea Nitrogen) 34 mg/dL (9.8-20.1); Calc. Creatinine Clearance 22 mL/min (70-130); Calcium 6.8 mg/dL (7.8-10.44); Carbon Dioxide 16 mmol/L (23-31); Chloride 107 mmol/L (98-107); Glucose 128 mg/dL (83-110); Magnesium 1.3 mg/dL (1.6-2.6); Phosphorus 2.3 mg/dL (2.3-4.7); Potassium 3.7 mmol/L (3.5-5.1); Sodium 142 mmol/L (136-145)
[2020-04-05] MEDS ORDERED: Fentanyl 100 MCG/2 ML VIAL ONE (16:47)
[2020-04-05] MEDS ORDERED: Albumin 5% 500 ML ONE (17:21)
[2020-04-05] MEDS ORDERED: Propofol 1,000 MG/100 ML VIAL IV ONE ×2 (18:17→22:37)
[2020-04-05] MEDS ORDERED: Promethazine HCl 25 MG/ML VIAL SLOW IVP PRN (18:27)
[2020-04-05] MEDS ORDERED: Ondansetron HCl/PF 4 MG/2 ML Vial IVP PRN (18:27)
[2020-04-05] MEDS ORDERED: Promethazine HCl 25 MG/ML VIAL IM PRN (18:27)
[2020-04-05] MEDS ORDERED: Ventilator Sedation Protocol 1 EACH FS SCH ×2 (18:30→20:15)
[2020-04-05] MEDS ORDERED: DISCONTINUE PREVIOUS NARCOTIC PAIN MEDICATIONS AND BENZODIAZEPINES FS SCH (18:45)
[2020-04-05] MEDS ORDERED: Propofol BOLUS 1,000 MG/100 ML VIAL IV PRN (18:45)
[2020-04-05] MEDS ORDERED: Fentanyl BOLUS 250 ML IVPB PRN (18:45)
[2020-04-05] MEDS ORDERED: Morphine 2 MG/ML VIAL SLOW IVP PRN (18:45)
[2020-04-05 18:49] LABS: Actual Bicarbonate (HCO3a) 14.9 mEq/L (22-28); Base Excess (BEa) -10.3 mEq/L (-2.0 to +3.0); CO2 Tension 30.3 mmHg (35.0-45.0); Calcium, Ionized (arterial) 0.95 mmol/L (1.12-1.30); Carboxyhemoglobin (COHb) 0.3 gm% (0.0-3.0); Hemoglobin (Hb) 9.9 g/dL (12.0-16.0); O2 Tension (PaO2), arterial 343.4 mmHg (> 60.0); Potassium - ABG Lab 2.89 mmol/L (3.70-5.30); Puncture Site RRA; pH, Arterial 7.31 (7.35-7.45)
[2020-04-05 18:50] LABS: ALV-art Gradient 331.725 mmHg (0-20)
--- NOTE | 2020-04-05 18:52 | CON ---
DATE OF CONSULTATION: 04/05/2020 HISTORY OF PRESENT ILLNESS: Ms. Mao is an 85-year-old female. I noted that she is on my rounding list as a consult on ER hold. I arrived in the emergency room to see her by the time Dr. Dickinson did, which was set about 14:30 to 14:45 today. She had been complaining of abdominal discomfort apparently for over a week. She also had nausea, vomiting, and decrease in bowel movements. In reviewing records, it looks like she was admitted with a diagnosis of sepsis, possible diverticulitis. PAST MEDICAL HISTORY: Remarkable for; 1. . 2. History of lipid disorder. 3. History of hypothyroidism. 4. History of an overactive bladder. 5. History of sleep apnea. 6. Degenerative arthritis. 7. History of a bradycardic arrest in the emergency department a year ago, leading to a pacemaker. SOCIAL HISTORY: She is a nonsmoker and nondrinker. MEDICATIONS: Prior to admission have been reviewed. FAMILY HISTORY: Negative for lung disease in early age. REVIEW OF SYSTEMS: Otherwise negative, mainly surrounds ongoing and significant abdominal pain, worse on the left than on the right. IMAGING STUDIES: CT scanning of her abdomen and pelvis done yesterday at 1643 hours showed diverticulosis, colonic stranding in the descending colon down to the sigmoid colon. PHYSICAL EXAMINATION: GENERAL: She is supine, on room air. She appeared comfortable until she was examined. VITAL SIGNS: Heart rate was 120 when I saw her, respiratory rate was 24 to 26, blood pressure was 110 systolic. HEAD AND NECK: Unremarkable. SKIN: She has beautiful skin for an 85-year-old. She has no cervical lymphadenopathy. LUNGS: Clear. HEART: Regular rhythm. No S3. I did not hear a murmur. ABDOMEN: Soft, but diffusely tender, especially in the left lower quadrant. EXTREMITIES: Without clubbing, cyanosis, or edema. LABORATORY DATA: White count up to 41.9, hemoglobin 10.9, platelets 450. She has 29% bands on her peripheral smear. Creatinine has gone from 2 to 2.23 this morning. Got a blood gas, showing her is pH 7.4, CO2 is 17, PO2 is 79. Bicarb was 10 on her Chem-7 this morning. Urinalysis showed greater than 50 white cells. IMPRESSION AND PLAN: I suspect she has ischemic colitis. I suppose this could be early perforated diverticulitis, but in my opinion, she has surgical tenderness on exam. Dr. Dickinson seen her at the same time I was and is contemplating taking her to the operating room. I will be happy to follow with the other physicians caring for her. She will likely remain mechanically ventilated if she has surgery today. Critical care time, 35 minutes. Job ID: [id number] MTDD
--- NOTE | 2020-04-05 19:10 | OP ---
DATE OF PROCEDURE: 04/05/2020 PREOPERATIVE DIAGNOSES: Acute abdomen, sepsis, septic shock, peritonitis, ischemic left colon, pacemaker, third-degree heart block, obesity. PROCEDURES PERFORMED: Exploratory laparotomy; evacuation of cloudy abdominal fluid; mobilization of splenic flexure, left colon, sigmoid colon; resection of the splenic flexure, descending colon, and sigmoid colon with Cortez's procedure; and a colostomy. Cortez's marked with a 2-0 Prolene. Left ureter identified during the procedure. ESTIMATED BLOOD LOSS: 150 mL. BLOOD TRANSFUSION: 2 units of blood. Preoperative hemoglobin 11, but after vigorous resuscitation, hemoglobin was 9. She remained hypotensive and blood was given. FINDINGS: Gangrenous focus splenic flexure area without shoshana perforation, but translocation, probably resulted in peritonitis. ANESTHESIA: General. DESCRIPTION OF PROCEDURE: The patient was taken to the operating room, where under general anesthesia, abdomen was prepared with ChloraPrep and draped in routine fashion. Incision was made in the midline, centered about the umbilicus, excising the umbilical hernia and incarcerated omentum. Adhesions taken down from a previous open cholecystectomy. Small bowel run from the ligament of Treitz to the cecum, appendix, right colon, transverse colon, appeared to be normal. Sigmoid colon was thickened. Left colon slightly thickened, but no perforation noted. There was cloudy peritoneal fluid that had been evacuated, but no feculent nature to it. There was a focus of the splenic flexure with a gangrenous area about 3 cm with some fibrinous exudate around it. Splenic flexure mobilized. Left colon mobilized. Left ureter kept free of harm. Inferior mesenteric vein divided between LigaSure. Left colon mobilized. Colon divided distal transverse with a DUNG. Mesentery divided with the LigaSure. The inferior mesenteric artery divided between clamps, ligated with 2-0 silk ties, keeping the left ureter free of harm. Dissection carried down the rectosigmoid junction, where the colon was divided with a contour DUNG and stump marked with a 2-0 Prolene long suture. Colon was adequately mobilized. Colon resected, submitted to Pathology distally, and marked with a silk suture. Abdominal cavity thoroughly irrigated with several liters of saline solution and evacuated. Hemostasis was noted. A circular defect made in the left lower quadrant between the anterior-superior iliac spine and umbilicus. An incision was carried down through the skin and subcutaneous tissue, excising a plug of skin and subcutaneous tissue, making a cruciate incision in the anterior rectus fascia, splitting the rectus muscle, bringing the colon out through this defect. Seprafilm placed between the viscera and abdominal wall. Sponge and needle counts were all correct. Midline fascia was closed with continuous suture of #1 PDS. Skin and subcutaneous tissues irrigated. Gloves were changed. Skin approximated loosely with page. DEMETRIUS incisional wound VAC applied and then a colostomy appliance applied after colostomy maturation completed with 4-quadrant Evonne sutures of 3-0 Vicryl and circumferential interrupted simple sutures 3-0 Vicryl. Colostomy is healthy with adequate colon available for colostomy reversal in the future if appropriate. Job ID: [id number]
--- NOTE | 2020-04-05 19:18 | RAD ---
PORTABLE CHEST: Date: 04-05-2020 PROVIDED CLINICAL HISTORY: Respiratory insufficiency. FINDINGS: Comparison is made with study dated 04-04-2020. Interval placement of enteric catheter, the tip of which overlies the left upper quadrant. Interval p lacement of an ET tube, the tip of which overlies the expected location of the thoracic inlet. There is obscuration of the left hemidiaphragm that may reflect left basilar pleural and/or parenchymal opa city. Additional significant interval change with respect to the prior study is not apparent IMPRESSION: As above. POS: [facility]
[2020-04-05 20:12] LABS: Anion Gap 19 mmol/L (10-20); Anion Gap 21 mmol/L (10-20); BUN (Urea Nitrogen) 29 mg/dL (9.8-20.1); Calc. Creatinine Clearance 26 mL/min (70-130); Calc. Creatinine Clearance 27 mL/min (70-130); Calcium 6.5 mg/dL (7.8-10.44); Calcium 6.6 mg/dL (7.8-10.44); Carbon Dioxide 12 mmol/L (23-31); Carbon Dioxide 14 mmol/L (23-31); Chloride 110 mmol/L (98-107); Glucose 144 mg/dL (83-110); Glucose 146 mg/dL (83-110); Magnesium 1.2 mg/dL (1.6-2.6); Potassium 3.1 mmol/L (3.5-5.1); Sodium 140 mmol/L (136-145)
[2020-04-05] MEDS: Albuterol Sulfate 1.25 MG/3 ML NEB NEB SCH ×2 (20:13→22:28)
[2020-04-05 20:18] LABS: Band 51 % (5-11); Hemoglobin 9.9 g/dL (12.0-16.0); Lymphocytes 1 % (21-51); MDiff Complete? YES; Mean Corpuscular HGB CONC 32.3 g/dL (32.0-36.0); Mean Corpuscular Hemoglobin 28.1 pg (27.0-31.0); Mean Corpuscular Volume 86.9 fL (78.0-98.0); Mean Platelet Volume 6.7 fL (7.4-10.4); Metamyelocyte 5 % (0-0); Monocytes 4 % (0-10); Neutrophil 38 % (42-75); Platelet Count 199 thou/uL (130-400); Platelet Morphology Comment Appears Adequate; Polychromasia SLIGHT = 2-3 cells (100X) (0-2/hpf); RBC Distribution Width 13.4 % (11.5-14.5); Reactive Lymphocytes 1 % (0-10); Red Blood Cell (RBC) Count 3.51 mill/uL (4.20-5.40); White Blood Cell (WBC) Count 14.6 thou/uL (4.8-10.8)
[2020-04-05] MEDS ORDERED: Potassium Chloride 40 MEQ in Premix Bag 1 BAG IVPB SCH (22:00)
[2020-04-05] MEDS: Meropenem 2 GM, Admixture Fee 1 EACH in Sodium Chloride 0.9% 100 ML IVPB SCH (23:02)
[2020-04-05] MEDS: Propofol 1,000 MG/100 ML VIAL IV PRN (23:20)
[2020-04-05] MEDS: Sodium Chloride 0.9% 1,000 ML IV SCH (23:22)
[2020-04-06] MEDS: Sodium Chloride 0.9% 1,000 ML IV SCH ×6 (01:16→21:58)
[2020-04-06] MEDS: Albuterol Sulfate 1.25 MG/3 ML NEB NEB SCH ×6 (03:15→22:59)
[2020-04-06] MEDS ORDERED: Propofol 1,000 MG/100 ML VIAL IV ONE (03:21)
[2020-04-06] MEDS: Propofol 1,000 MG/100 ML VIAL IV PRN (03:56)
[2020-04-06] MEDS: Nystatin Powder 15 GM BOT TOP PRN ×2 (04:19→16:29)
[2020-04-06] MEDS ORDERED: Sodium Chloride 0.9% 50 ML ONE (04:38)
[2020-04-06] MEDS: Meropenem 2 GM, Admixture Fee 1 EACH in Sodium Chloride 0.9% 100 ML IVPB SCH (05:05)
[2020-04-06 05:31] LABS: Anion Gap 15 mmol/L (10-20); BUN (Urea Nitrogen) 26 mg/dL (9.8-20.1); Calc. Creatinine Clearance 28 mL/min (70-130); Calcium 6.5 mg/dL (7.8-10.44); Carbon Dioxide 16 mmol/L (23-31); Chloride 112 mmol/L (98-107); Glucose 137 mg/dL (83-110); Magnesium 1.2 mg/dL (1.6-2.6); Potassium 3.4 mmol/L (3.5-5.1); Sodium 140 mmol/L (136-145)
[2020-04-06 05:47] LABS: Band 51 % (5-11); Burr Cells MODERATE= 6-15 cells (100X) (0-1/hpf); Eosinophils 2 % (0-10); Hemoglobin 11.9 g/dL (12.0-16.0); Lymphocytes 6 % (21-51); MDiff Complete? YES; Mean Corpuscular HGB CONC 33.3 g/dL (32.0-36.0); Mean Corpuscular Volume 87.1 fL (78.0-98.0); Metamyelocyte 4 % (0-0); Monocytes 1 % (0-10); Neutrophil 36 % (42-75); Platelet Count 200 thou/uL (130-400); RBC Distribution Width 13.4 % (11.5-14.5); White Blood Cell (WBC) Count 16.5 thou/uL (4.8-10.8)
--- NOTE | 2020-04-06 05:56 | PDOC.FM ---
- Subjective Subjective: Patient evaluated in PACU this am. She tolerated the procedure well last night. Follows commands when sedation is weaned. BP was low this am and albumin was started, propofol was d/c'd and patient was put on fentanyl for sedation, and NS @ 250ml/hr was started which improved her BP. - Objective Vital Signs & Weight: Vital Signs (12 hours) Temp Pulse Resp BP BP BP Pulse Ox 04/06/20 05:00 97.7 F 04/06/20 03:16 72 04/06/20 03:15 73 12 100 04/06/20 03:00 98.6 F 74 12 106/47 L 100 04/06/20 02:31 98.6 F 04/06/20 02:25 75 12 108/49 L 100 04/06/20 02:24 98.4 F 04/06/20 00:00 98.5 F 04/05/20 23:27 97.8 F 78 12 101/48 L 100 04/05/20 22:28 78 12 100 04/05/20 20:02 86 106/80 Weight Admit Weight 72.6 kg Weight 72.575 kg Most Recent Monitor Data Heart Rate from ECG 66 NIBP 121/67 NIBP BP-Mean 85 Respiration from ECG 12 SpO2 100 I&O: 04/04/20 04/05/20 04/06/20 06:59 06:59 06:59 Intake Total 2827 Output Total 1665 Balance 1162 Result Diagrams: 04/06/20 04:47 04/06/20 04:47 Phys Exam - Physical Examination intubated and sedated HEENT: moist MMs Neck: supple, full ROM Respiratory: no wheezing, clear to auscultation bilateral Cardiovascular: RRR, no significant murmur Gastrointestinal: soft colostomy draining brown stool Musculoskeletal: no edema Deviation from normal: sedated, opens eyes when stating her name Skin: no rash Dx/Plan - Plan Plan: #Septic shock 2/2 to diverticulitis and UTI - s/p 3 L NS, vanc, zosyn in ED - L. femoral central line placed in ED with levophed started, continue with goal MAP >65 - LA: 4.1 > 2.0 - transitioned abx from metronidazole and cefepime to meropenem 04/05 - bl cx and urine cx obtained in ED, NGTD - monitor UO with parker, plan to remove TIP - CT abdomen: diverticulitis, no abscess or signs of perforation - UA: Turbid, 500 LE, >50 WBCs, 3+ bacteria -abdomen was very tender and pain was worsening during the mid-day yesterday, surgery, Dr. Dickinson, consulted during the am 04/05 -s/p ex-lap, resection of splenic flexure, descending colon, and sigmoid colon with placement of colostomy 04/05 -currently intubated on SIMV satting 100%, levo @ 40, NS @ 250ml/hr, fentanyl @ 50, ppi for GI ppx; possible extubation today pending clinical course #Anion Gap Metabolic Acidosis 2/2 to Lactic acidosis, resolved - due to above - LA: 4.1 > 2.0 - A>12 - Bicarb: 10 > 16 #JOEL, improved - Cr: 1.91>2.05>2.0>1.74 -continue to monitor with fluids and monitor urine output closely #Indeterminate trop - likely 2/2 to septic shock - Trop: 0.029>0.049>0.075>0.103 - no active chest pain - EKG: very mild ST depression in V4 and V5, nonspecific ST segment changes in lateral leads noted on previous EKGs #HFpEF -Last echo 12/20: EF 65-70%, Grade 1/3 diastolic dysfunction -aware, will avoid fluid overload #Chronic medical conditions: HTN - holding antihypertensives due to hypotension and need for levophed HLD - continue home medication once no longer NPO (40 mg atorvastatin) Hypothyroid - continue home medication once no longer NPO (0.112 mg Lev othyroxine) Osteoporosis - continue home medication once no longer NPO (Weekly Fosamax 70mg) Overactive bladder - continue home medication once no longer NPO (4 mg Tolterodine) Cardiac Arrhythmia - has pacemaker, aware YVAN - CPAP at night, CPAP ordered History of Giant Cell Arteritis - aware, completed steroid taper *Of note, patient has not taken any home medications in weeks due to N/V PCP: [facility] Code: FULL Diet: NPO Abx: Metronidazole and Cefepime starting 04/05; s/p vanc and zosyn on 04/04 DVT ppx: Heparin GI ppx: protonix Fluids: NS @ 250 mls/hr Dispo: admitted to CCU for further medical management including fluid resuscitation, electrolyte monitoring, and IV abx Addendum - Attending - Attending Attestation Date/Time: 04/06/20 1222 I personally evaluated the patient and discussed the management with Dr. Rogel. I agree with the History, Examination, Assessment and Plan documented above with any addition or exceptions noted below. Patient here due to concerns of septic shock from ischemic colitis. She is now POD1 s/p hemicolectomy. She remains hypotensive, on IVF, albumin, and Levophed. She remains ventilated, but has some response to name. Continue IV abx, awaiting further recommendations from general surgery. UOP adequate at this time.
[2020-04-06] MEDS ORDERED: Albumin 5% 0 ML ONE (06:30)
[2020-04-06 06:43] LABS: Actual Bicarbonate (HCO3a) 14.1 mEq/L (22-28); Base Excess (BEa) -10.9 mEq/L (-2.0 to +3.0); CO2 Tension 29.3 mmHg (35.0-45.0); Calcium, Ionized (arterial) 0.96 mmol/L (1.12-1.30); Carboxyhemoglobin (COHb) 0.2 gm% (0.0-3.0); Hemoglobin (Hb) 12.8 g/dL (12.0-16.0); O2 Tension (PaO2), arterial 179.3 mmHg (> 60.0)
[2020-04-06 07:12] LABS: ALV-art Gradient 140.575 mmHg (0-20); Puncture Site RRA
[2020-04-06] MEDS ORDERED: Sodium Chloride 0.9% 1,000 ML IV SCH (07:15)
[2020-04-06] MEDS: Albumin 25% 25 GM/100 ML BOT IVPB SCH ×3 (07:23→18:09)
[2020-04-06] MEDS ORDERED: Magnesium Sulfate 3 GM in Sodium Chloride 0.9% 100 ML IVPB SCH (08:45)
[2020-04-06] MEDS: Pantoprazole 40 MG VIAL IVP SCH (09:07)
[2020-04-06] MEDS ORDERED: MEROPENEM 1 GM/50 ML 1 GM in Premix Bag 1 BAG IVPB SCH (10:00)
[2020-04-06] MEDS: Meropenem 1 GM in Sodium Chloride 0.9% 100 ML IVPB SCH ×2 (10:02→21:35)
--- NOTE | 2020-04-06 11:48 | PRG ---
DATE OF SERVICE: 04/06/2020 SUBJECTIVE: Ms. Mao is in PACU, ICU overflow. She is on the ventilator. She is on the ventilation sedation protocol. Propofol has been discontinued and held, and the patient is awake this morning. She indicates that she is having less pain than preoperatively and feels better. OBJECTIVE: VITAL SIGNS: Her blood pressure is 120/55 and heart rate 92. Levophed is still at a high rate. It has been increased overnight. Her gastric drainage is 90 mL for 24 hours. Colostomy appears healthy and has stool output. Urine output 1535. LUNGS: Clear to auscultation. CARDIAC: Regular rate and rhythm. ABDOMEN: Softer, less tender. DEMETRIUS incisional suction device is in place. We will leave it present for 5 days. EXTREMITIES: Unremarkable. LABORATORY DATA: White count is dropped from 41,000 to 16,000. She has 51% bands, hemoglobin 11.9, and platelet count 200,000. Sodium 140, potassium 3.4, BUN 26, creatinine 1.74, GFR 28, glucose 137, calcium 6.5, magnesium 1.2. ASSESSMENT AND PLAN: 1. Septic shock. Continue intravenous antibiotics. Continue Levophed and wean as able, keeping mean arterial pressure greater than 68 to 70. Use fentanyl instead of propofol for sedation as necessary. Ventilation sedation protocol. 2. Acute kidney injury, stable, nonoliguric. Good urine output. Continue IV fluid at 185 an hour saline. 3. Respiratory failure, on the ventilator. 4. Peritonitis, left colon ischemia. Stool studies have been ordered, but there has been no history of diarrhea. She gives a history in fact of constipation/obstipation. At time of operation, it appeared that she has ischemic colon. 5. Low magnesium, replace. Job ID: [id number]
[2020-04-06] MEDS ORDERED: Potassium Chloride 40 MEQ in Premix Bag 1 BAG IVPB SCH (12:30)
[2020-04-06] MEDS ORDERED: Sodium Chloride 0.9% 10 ML ONE (13:21)
[2020-04-06] MEDS ORDERED: Lorazepam 2 MG/ML VIAL ONE ×2 (15:05→19:26)
[2020-04-06] MEDS: Lorazepam 2 MG/ML VIAL SLOW IVP PRN (15:05)
[2020-04-06] MEDS: Norepinephrine 8 MG in Dextrose 5% in Water 242 ML IVPB SCH (21:36)
[2020-04-07] MEDS: Norepinephrine 8 MG in Dextrose 5% in Water 242 ML IVPB SCH ×2 (00:46→05:30)
[2020-04-07] MEDS: Sodium Chloride 0.9% 1,000 ML IV SCH ×7 (02:25→21:20)
[2020-04-07] MEDS: Albumin 25% 25 GM/100 ML BOT IVPB SCH ×2 (02:26→10:43)
[2020-04-07] MEDS: Albuterol Sulfate 1.25 MG/3 ML NEB NEB SCH ×6 (04:09→19:34)
--- NOTE | 2020-04-07 05:39 | PDOC.FM ---
- Subjective Subjective: Patient did well overnight. Continues to require pressor support. Continues to awaken and follow commands with prompting. - Objective Vital Signs & Weight: Vital Signs (12 hours) Temp Pulse Resp BP Pulse Ox 04/07/20 04:10 99 98/58 L 04/07/20 04:09 100 04/07/20 04:00 96.7 F L 15 04/07/20 02:00 16 04/07/20 00:00 96.8 F L 15 04/06/20 23:01 98 04/06/20 23:00 103 H 04/06/20 22:00 12 04/06/20 20:58 98 04/06/20 20:28 116 H 95/76 04/06/20 20:00 96.8 F L 12 96 04/06/20 19:00 97.8 F 04/06/20 17:45 97.7 F Weight Admit Weight 72.6 kg Weight 79.974 kg Most Recent Monitor Data Heart Rate from ECG 107 NIBP 94/68 NIBP BP-Mean 76 Respiration from ECG 14 SpO2 97 I&O: 04/05/20 04/06/20 04/07/20 06:59 06:59 06:59 Intake Total 2827 5561.1 Output Total 1700 1154 Balance 1127 4407.1 Result Diagrams: 04/06/20 04:47 04/07/20 04:58 Phys Exam - Physical Examination Constitutional: NAD intubated and sedated HEENT: moist MMs Neck: supple, full ROM Respiratory: no wheezing, clear to auscultation bilateral Cardiovascular: RRR, no significant murmur Gastrointestinal: soft colostomy draining minimal brown stool Musculoskeletal: no edema sedated, responds and follows commands when prompted Skin: no rash Dx/Plan - Plan Plan: #Septic shock 2/2 to diverticulitis and UTI - s/p 3 L NS, vanc, zosyn in ED - L. femoral central line placed in ED with levophed started, continue with goal MAP >65 - LA: 4.1 > 2.0 - transitioned abx from metronidazole and cefepime to meropenem 04/05 - bl cx obtained in ED, NGTD - urine cx demonstrate klebsiella/enterobacter and aerococcus urinae, fisher- sensitive - monitor UO with parker, plan to remove TIP - CT abdomen: diverticulitis, no abscess or signs of perforation - UA: Turbid, 500 LE, >50 WBCs, 3+ bacteria -Surgery, Dr. Dickinson, consulted during the am 04/05 -s/p ex-lap, resection of splenic flexure, descending colon, and sigmoid colon with placement of colostomy 04/05 -intubated 04/05 prior to surgery, continues to be intubated; possible wean and extubation today -currently intubated on SIMV satting 100%, levo @ 32, NS @ 250ml/hr, fentanyl @ 40, ppi for GI ppx #Anion Gap Metabolic Acidosis 2/2 to Lactic acidosis, resolved - due to above - LA: 4.1 > 2.0 - A>12 - Bicarb: 10 > 16 #JOEL, improved - Cr: 1.91>2.05>2.0>1.74>1.48 -continue to monitor with fluids and monitor urine output closely #Indeterminate trop - likely 2/2 to septic shock - Trop: 0.029>0.049>0.075>0.103 - no active chest pain - EKG: very mild ST depression in V4 and V5, nonspecific ST segment changes in lateral leads noted on previous EKGs #HFpEF -Last echo 12/20: EF 65-70%, Grade 1/3 diastolic dysfunction -aware, will avoid fluid overload #Chronic medical conditions: HTN - holding antihypertensives due to hypotension and need for levophed HLD - continue home medication once no longer NPO (40 mg atorvastatin) Hypothyroid - continue home medication once no longer NPO (0.112 mg Levothyroxine) Osteoporosis - continue home medication once no longer NPO (Weekly Fosamax 70mg) Overactive bladder - continue home medication once no longer NPO (4 mg Tolterodine) Cardiac Arrhythmia - has pacemaker, aware YVAN - CPAP at night, CPAP ordered History of Giant Cell Arteritis - aware, completed steroid taper *Of note, patient has not taken any home medications in weeks due to N/V PCP: [facility] Code: FULL Diet: NPO Abx: Metronidazole starting 04/05 DVT ppx: Heparin GI ppx: protonix Fluids: NS @ 250 mls/hr Dispo: admitted to CCU for further medical management including fluid resuscitation, electrolyte monitoring, and IV abx Addendum - Attending - Attending Attestation Date/Time: 04/07/20 1581 I personally evaluated the patient and discussed the management with Dr. Rogel. I agree with the History, Examination, Assessment and Plan documented above with any addition or exceptions noted below. Patient overall stable. Continue IV abx, pressor and vent support. Surgery on board managing peritonitis.
[2020-04-07 05:50] LABS: Anion Gap 15 mmol/L (10-20); BUN (Urea Nitrogen) 19 mg/dL (9.8-20.1); Calc. Creatinine Clearance 36 mL/min (70-130); Calcium 6.1 mg/dL (7.8-10.44); Carbon Dioxide 14 mmol/L (23-31); Chloride 113 mmol/L (98-107); Glucose 131 mg/dL (83-110); Magnesium 1.7 mg/dL (1.6-2.6); Potassium 3.2 mmol/L (3.5-5.1); Sodium 139 mmol/L (136-145)
--- NOTE | 2020-04-07 05:56 | PRG ---
DATE OF SERVICE: 04/06/2020 SUBJECTIVE: Juana Mao remains mechanically ventilated. She actually awakens and denies having any discomfort. She is on a fentanyl drip. Blood pressure this afternoon is 123/73. She got pretty hypotensive this morning but responded to pressors and volume resuscitation. OBJECTIVE: VITAL SIGNS: She is afebrile. Heart rate is 100, respiratory rate per mechanical ventilation. LUNGS: Remarkable for equal breath sounds. HEART: Regular rhythm. ABDOMEN: Soft, postoperative. EXTREMITIES: Without clubbing, cyanosis, or edema. If she has a good night hemodynamically, and does not have pulmonary edema or progressive hypoxemia, we may be able to consider weaning and extubation in the morning. Critical care time 30 min Job ID: [id number] MTDD
[2020-04-07] MEDS: fentaNYL Citrate/PF 2,000 MCG in Sodium Chloride 0.9% 60 ML IV SCH (06:28)
[2020-04-07 09:07] LABS: Hemoglobin 10.8 g/dL (12.0-16.0); Mean Corpuscular HGB CONC 30.9 g/dL (32.0-36.0); Mean Corpuscular Hemoglobin 27.5 pg (27.0-31.0); Mean Platelet Volume 7.6 fL (7.4-10.4); Platelet Count 149 thou/uL (130-400); RBC Distribution Width 13.8 % (11.5-14.5); Red Blood Cell (RBC) Count 3.93 mill/uL (4.20-5.40); White Blood Cell (WBC) Count 14.6 thou/uL (4.8-10.8)
[2020-04-07 09:15] LABS: Band 17 % (5-11); Burr Cells MODERATE= 6-15 cells (100X) (0-1/hpf); Lymphocytes 10 % (21-51); MDiff Complete? YES; Monocytes 1 % (0-10); Neutrophil 72 % (42-75); Platelet Morphology Comment Appears Adequate; Polychromasia SLIGHT = 2-3 cells (100X) (0-2/hpf)
--- NOTE | 2020-04-07 09:32 | PRG ---
DATE OF SERVICE: 04/07/2020 SUBJECTIVE: The patient is in IMCU ICU status. She is still on high-dose Levophed, has been weaned to some degree. OBJECTIVE: VITAL SIGNS: Temperature 96.3 degrees, heart rate 101, MAP 68, blood pressure 97/53. Gastric drainage 120 mL for 24 hours. Colostomy output 80 mL. Urine output 954 mL. She is on 250 mL an hour of IV fluid. Albumin every 6 hours. GENERAL: The patient is intubated and sedated. LUNGS: Clear to auscultation. No wheezes. Chest x-ray reveals some effusions and mild congestion, but is supine. CARDIAC: Regular rate and rhythm. ABDOMEN: Soft. Colostomy healthy. Scant stool in the bag. BACK: Midline wound. EXTREMITIES: Unremarkable. LABORATORY DATA: White count now 16.5 up from 14.6 yesterday and down from April 05Sunday, 41,000. She still does have 51% bands. Sodium 139, potassium 3.2, BUN 19, creatinine 1.48, decreased from yesterday 26 and 1.74, GFR 34 improved from 28 yesterday, glucose is 137 and 131, calcium 6.1, magnesium 1.7 after magnesium replacement yesterday. ASSESSMENT AND PLAN: 1. Septic shock, still requiring high-dose Levophed, although has been wean slightly from yesterday. Her white count is slightly diminished, although appears to still have a left shift. We would continue intravenous antibiotics. Continue Levophed, wean according to the MAP. 2. Respiratory failure. Continue ventilatory support until sepsis improved. 3. Acute kidney injury, improved. Acceptable urine output despite high-dose Levophed. Renal function has improved, but labs and urine output remains adequate. 4. The patient presented with history of obstipation/constipation and has no history of diarrhea. Stool studies ordered. C difficile antigen positive, toxin negative. I do not believe this reflects C difficile colitis. Pathology pending on her resected colon, which appeared to be ischemic splenic flexure with some exudate and inflammatory overlying it. Await pathology. Job ID: [id number]
[2020-04-07 09:48] LABS: Actual Bicarbonate (HCO3a) 11.1 mEq/L (22-28); Base Excess (BEa) -14.2 mEq/L (-2.0 to +3.0); Calcium, Ionized (arterial) 0.95 mmol/L (1.12-1.30); Carboxyhemoglobin (COHb) 0.2 gm% (0.0-3.0); Hemoglobin (Hb) 11.9 g/dL (12.0-16.0); Potassium - ABG Lab 3.21 mmol/L (3.70-5.30); pH, Arterial 7.26 (7.35-7.45)
[2020-04-07 09:49] LABS: CO2 Tension 25.3 mmHg (35.0-45.0)
[2020-04-07 09:50] LABS: ALV-art Gradient 172.875 mmHg (0-20); Puncture Site RRA
[2020-04-07] MEDS ORDERED: MEROPENEM 1 GM/50 ML 1 GM in Premix Bag 1 BAG IVPB SCH (10:00)
[2020-04-07] MEDS: Pantoprazole 40 MG VIAL IVP SCH (10:43)
[2020-04-07] MEDS: Potassium Chloride 20 MEQ in Premix Bag 1 BAG IVPB SCH ×2 (10:43→13:59)
[2020-04-07] MEDS: Meropenem 1 GM in Sodium Chloride 0.9% 100 ML IVPB SCH ×2 (10:44→13:33)
[2020-04-07] MEDS ORDERED: Electrolyte Replacement Protocol FS PRN (10:45)
--- NOTE | 2020-04-07 10:56 | RAD ---
PORTABLE CHEST: HISTORY: Respiratory distress. COMPARISON: A 04/05/2020 study. FINDINGS: Endotracheal and NG tubes are in satisfactory position. A pacemaker is present. There has been a si gnificant progression in the parenchymal lung changes. There are now what appear to be bilateral eff usions with bibasilar lung changes probably on the basis of infiltrate. Pulmonary vessels do not cathleen ear overtly engorged. IMPRESSION: Significant progression in the appearance of the chest now with increased density in both bases which is probably a combination of bilateral effusions and infiltrates. POS: [facility]
[2020-04-07] MEDS ORDERED: Potassium Phosphate 22 MMOL in Sodium Chloride 0.9% 250 ML 250 ML IVPB SCH (13:15)
[2020-04-07] MEDS ORDERED: Magnesium 2 GM/50 ML 2 GM in Premix Bag 1 BAG IVPB SCH (13:15)
[2020-04-07] MEDS: Norepinephrine 8 MG/0.9% NS 8 MG in Premix Bag 1 BAG IVPB PRN (21:51)
--- NOTE | 2020-04-07 21:52 | CON ---
DATE OF CONSULTATION: 04/07/2020 SUBJECTIVE: Ms. Mao was hemodynamically stable overnight. She is still requiring Levophed, however. She has had some output from the colostomy. OBJECTIVE: VITAL SIGNS: Blood pressure has been running in the 90s. Heart rates have been right around 100. She is in sinus rhythm. GENERAL: She is intubated. LUNGS: Clear. HEART: Regular rhythm. ABDOMEN: Soft. Her ostomy is pink. EXTREMITIES: Without asymmetry. Wound looks good. LABORATORY DATA: White count 16.5. She still has a left shift. Electrolytes are unremarkable. Creatinine improved to 1.48. IMPRESSION: Sepsis associated with peritonitis. She appears to be clinically stable, but has not been weaned off pressors yet. I doubt she has adrenal insufficiency, but I will order an a.m. cortisol. PLAN: We will continue supportive care. Critical care time 30 min Job ID: [id number] MTDD
[2020-04-07] MEDS ORDERED: Meropenem 1 GM in Sodium Chloride 0.9% 100 ML IVPB SCH (22:00)
[2020-04-08] MEDS: Albuterol Sulfate 1.25 MG/3 ML NEB NEB SCH ×7 (00:39→22:33)
[2020-04-08] MEDS: Norepinephrine 8 MG/0.9% NS 8 MG in Premix Bag 1 BAG IVPB PRN ×2 (01:09→07:05)
[2020-04-08 04:11] LABS: Anion Gap 14 mmol/L (10-20); BUN (Urea Nitrogen) 16 mg/dL (9.8-20.1); Calc. Creatinine Clearance 43 mL/min (70-130); Calcium 6.1 mg/dL (7.8-10.44); Carbon Dioxide 13 mmol/L (23-31); Chloride 114 mmol/L (98-107); Glucose 109 mg/dL (83-110); Magnesium 1.9 mg/dL (1.6-2.6); Potassium 3.9 mmol/L (3.5-5.1); Sodium 137 mmol/L (136-145)
[2020-04-08 04:15] LABS: Phosphorus 1.8 mg/dL (2.3-4.7)
[2020-04-08 04:24] LABS: Band 14 % (5-11); Burr Cells MODERATE= 6-15 cells (100X) (0-1/hpf); Hemoglobin 11.6 g/dL (12.0-16.0); Lymphocytes 5 % (21-51); MDiff Complete? YES; Mean Corpuscular HGB CONC 32.2 g/dL (32.0-36.0); Mean Corpuscular Hemoglobin 28.3 pg (27.0-31.0); Mean Platelet Volume 7.3 fL (7.4-10.4); Monocytes 4 % (0-10); Neutrophil 76 % (42-75); Platelet Count 168 thou/uL (130-400); RBC Distribution Width 13.9 % (11.5-14.5); Red Blood Cell (RBC) Count 4.09 mill/uL (4.20-5.40); White Blood Cell (WBC) Count 21.6 thou/uL (4.8-10.8)
[2020-04-08] MEDS ORDERED: Magnesium 2 GM/50 ML 2 GM in Premix Bag 1 BAG IVPB SCH (06:15)
[2020-04-08] MEDS ORDERED: Potassium Phosphate 15 MMOL in Sodium Chloride 0.9% 100 ML IVPB SCH (06:15)
--- NOTE | 2020-04-08 07:27 | PDOC.FM ---
- Subjective Subjective: Patient was sedated and intubated at the time of evaluation. No acute overnight events reported by Resident Night Team or Nursing Staff. - Objective Vital Signs & Weight: Vital Signs (12 hours) Temp Pulse Resp BP Pulse Ox 04/08/20 07:00 110 H 105/50 L 04/08/20 06:00 12 04/08/20 04:06 85 04/08/20 04:00 98.7 F 13 04/08/20 02:00 13 04/08/20 00:40 121 H 99/64 04/08/20 00:39 99 04/08/20 00:00 98.2 F 15 04/07/20 22:00 14 04/07/20 20:00 97.7 F 16 98 04/07/20 19:36 117 H 100 04/07/20 19:34 100 Weight Admit Weight 72.6 kg Weight 84.028 kg Most Recent Monitor Data Heart Rate from ECG 116 NIBP 94/58 NIBP BP-Mean 70 Respiration from ECG 15 SpO2 100 I&O: 04/07/20 04/08/20 04/09/20 06:59 06:59 06:59 Intake Total 5561.1 4239.6 Output Total 1299 592 Balance 4262.1 3647.6 Result Diagrams: 04/08/20 03:14 04/08/20 03:14 Phys Exam - Physical Examination Constitutional: NAD HEENT: moist MMs Neck: supple Course Breath Sounds Cardiovascular: RRR, no significant murmur, no rub Gastrointestinal: soft, non-tender, no distention, positive bowel sounds Musculoskeletal: no edema, pulses present Sedated and Intubated Deviation from normal: Sedated and Intubated Deviation from normal: Inguinal Rash - likely Candidal Dx/Plan (1) Diverticulitis Code(s): K57.92 - DVTRCLI OF INTEST, PART UNSP, W/O PERF OR ABSCESS W/O BLEED Status: Acute (2) Septic shock Code(s): A41.9 - SEPSIS, UNSPECIFIED ORGANISM; R65.21 - SEVERE SEPSIS WITH SEPTIC SHOCK Status: Acute (3) UTI (urinary tract infection) Status: Acute (4) HLD (hyperlipidemia) Code(s): E78.5 - HYPERLIPIDEMIA, UNSPECIFIED Status: Chronic (5) HTN (hypertension) Code(s): I10 - ESSENTIAL (PRIMARY) HYPERTENSION Status: Chronic (6) Hypothyroidism Code(s): E03.9 - HYPOTHYROIDISM, UNSPECIFIED Status: Chronic (7) Acute respiratory failure with hypoxia Code(s): J96.01 - ACUTE RESPIRATORY FAILURE WITH HYPOXIA Status: Resolved - Plan Plan: Patient is an 85 y/o female who presented to the hospital for evaluation of ABD pain. #Septic Shock, 2/2 to Diverticulitis, UTI - s/p 3 L NS, Vanc and Zosyn in ED - Femoral Central Line (L) placed in ED for pressure support with Levophed required to obtain MAP goal of 65 - LA: 4.1 > 2.1 - Transitioned ABx from Metronidazole and Cefepime to Meropenem (04/05) - BCx: NGTD - UA: Turbid, 500 LE, >50 WBCs, 3+ bacteria - UCx: Klebsiella, Enterobacter and Aerococcus urinae - fisher-sensitive - Stool Cx: Pseudomonas - Will monitor Urine Output with parker, plan to remove TIP - CT ABD: Diverticulitis w/o signs of abscess or perforation - Dr. Dickinson (GenSurg): Consulted on 04/05 s/p Ex-Lap w/ resection of Splenic Flexure, Descending Colon, and Sigmoid Colon and placement of Colostomy -Intubated on 04/05 prior to surgery will attempt to wean as tolerated #Anion Gap Metabolic Acidosis 2/2 to Lactic Acidosis, resolved - Due to above - LA: 4.1 > 2.0 - A>12 - Bicarb: 10 > 16 #JOEL, improved - Cr: 1.91 > 2.05 > 2.0 > 1.74 > 1.48 > 1.3 - Will continue to monitor closely and asses fluid status and urine output #Indeterminate Trop - Likely 2/2 demand ischemia - Trop: 0.029>0.049>0.075>0.103 - No active chest pain - EKG: very mild ST depression in V4 and V5, nonspecific ST segment changes in lateral leads noted on previous EKGs #HFpEF -Last echo 12/20: EF 65-70%, Grade 1/3 diastolic dysfunction -aware, will avoid fluid overload #Chronic medical conditions: HTN - holding antihypertensives due to hypotension and need for levophed HLD - continue home medication once no longer NPO (40 mg atorvastatin) Hypothyroid - continue home medication once no longer NPO (0.112 mg Levothyroxine) Osteoporosis - continue home medication once no longer NPO (Weekly Fosamax 70mg) Overactive bladder - continue home medication once no longer NPO (4 mg Tolterodine) Cardiac Arrhythmia - has pacemaker, aware YVAN - CPAP at night, CPAP ordered History of Giant Cell Arteritis - aware, completed steroid taper *Of note, patient has not taken any home medications in weeks due to N/V PCP: [facility] Code: FULL Diet: NPO Abx: Meropenem DVT ppx: Heparin GI ppx: protonix Fluids: NS @ 250 mls/hr Dispo: Patient is currently admitted to the CCU following Ex-Lap for ongoing management of hypotension, fluid resuscitation, electrolyte monitoring, and IV ABx. Condition remains guarded with poor overall prognosis. Will continue to monitor closely and coordinate with GenSurg as needed. Expected LOS > 48H. Addendum - Attending - Attending Attestation Date/Time: 04/08/20 1416 I personally evaluated the patient and discussed the management with Dr. Centeno. I agree with the History, Examination, Assessment and Plan documented above with any addition or exceptions noted below. Patient stable. Continues to have low range MAP and UOP, hoping that as sedation can be weaned this will improve. Continue abx, awaiting further recs from general surgery.
[2020-04-08 07:28] LABS: Actual Bicarbonate (HCO3a) 10.5 mEq/L (22-28); Base Excess (BEa) -13.9 mEq/L (-2.0 to +3.0); Calcium, Ionized (arterial) 0.98 mmol/L (1.12-1.30); Carboxyhemoglobin (COHb) 0.1 gm% (0.0-3.0); Hemoglobin (Hb) 12.6 g/dL (12.0-16.0); O2 Tension (PaO2), arterial 114.6 mmHg (> 60.0); Potassium - ABG Lab 3.65 mmol/L (3.70-5.30)
[2020-04-08 08:11] LABS: CO2 Tension 21.8 mmHg (35.0-45.0); Puncture Site LRA
[2020-04-08] MEDS: Pantoprazole 40 MG VIAL IVP SCH (08:40)
[2020-04-08] MEDS ORDERED: Hydrocortisone Sod Succ/PF 250 mg/2 ml Vial SLOW IVP SCH (09:45)
[2020-04-08] MEDS ORDERED: MEROPENEM 1 GM/50 ML 1 GM in Premix Bag 1 BAG IVPB SCH (10:00)
--- NOTE | 2020-04-08 10:07 | RAD ---
PORTABLE SEMIUPRIGHT FRONTAL CHEST RADIOGRAPH: Date: 04/08/2020 COMPARISON: 04/07/2020. HISTORY: Ventilated patient. FINDINGS: Stable endotracheal tube, nasogastric tube, and dual lead transvenous pacing device. Dense bilateral pleural and parenchymal opacity in the lung bases/perihilar regions. No discrete pneumothorax. IMPRESSION: No significant interval change. POS: [facility]
--- NOTE | 2020-04-08 13:56 | PRG ---
DATE OF SERVICE: 04/08/2020 SUBJECTIVE: Juana Mao is in IMC/CCU status on the ventilator. She is still on Levophed. Cortisol levels reveal cortisol insufficiency. Dr. Rivera has ordered vasopressin as well as hydrocortisone. Hydrocortisone was later discontinued. The patient continues on intravenous antibiotics, meropenem, adjusted for renal failure. The patient's white blood cell count was 14,000 yesterday, 21,000 today; hemoglobin of 11.6. Her BUN is 16, creatinine 1.3, sodium 137, potassium of 3.9, GFR 39. OBJECTIVE: LUNGS: Clear to auscultation with chest x-ray revealing congestive changes. CARDIAC: Regular rate and rhythm. ABDOMEN: Soft. Colostomy healthy. Colostomy output present EXTREMITIES: Unremarkable. ASSESSMENT AND PLAN: 1. Acute respiratory failure on the ventilator. Weaning per Dr. Rivera. 2. Adrenal insufficiency with vasopressin intravenously being given with hopes to wean her Levophed. 3. Acute kidney injury, improved with hydration and IV fluid decreased from 250 to a 50 yesterday. Wean as able. White count is slightly increased with a left shift. Continue intravenous antibiotics. Adjust per renal failure. Job ID: [id number]
--- NOTE | 2020-04-08 16:06 | PRG ---
DATE OF SERVICE: 04/08/2020 SUBJECTIVE: Juana Mace remains mechanically ventilated. OBJECTIVE: VITAL SIGNS: Heart rate is 116, blood pressure 95/70, respiratory rate is 12, oximetry is 100%. LUNGS: Clear. HEART: Regular rate and rhythm. ABDOMEN: Soft. EXTREMITIES: Without asymmetry or edema. LABORATORY DATA: Chest radiograph is unchanged. She has radiographic changes suggestive of pulmonary edema, which I suspect is noncardiogenic. White count 21.6, hemoglobin 11.6, platelets 168. She has 14% bands on her peripheral smear, down from 17 yesterday and 51 the day before. Sodium 137, potassium 3.9, chloride 114, bicarb 13, BUN 16, creatinine 1.3. PH 7.31, CO2 of 21, and pO2 114. IMPRESSION: 1. Respiratory failure. 2. Hyperchloremic acidosis. 3. Probable relative adrenal insufficiency with a cortisol level of 10 this morning. Added vasopressin and given her a stress dose of hydrocortisone. Hopefully, in the next 24 hours. She is currently not weanable. Critical care time 30 min. Job ID: [id number] MTDD
[2020-04-08] MEDS: Meropenem 1 GM in Sodium Chloride 0.9% 100 ML IVPB SCH (22:53)
[2020-04-08] MEDS: Norepinephrine 8 MG in Dextrose 5% in Water 242 ML IVPB SCH (23:54)
[2020-04-09] MEDS: fentaNYL Citrate/PF 2,000 MCG in Sodium Chloride 0.9% 60 ML IV SCH (00:11)
[2020-04-09] MEDS: Albuterol Sulfate 1.25 MG/3 ML NEB NEB SCH ×6 (02:56→22:26)
[2020-04-09 04:41] LABS: Anion Gap 15 mmol/L (10-20); BUN (Urea Nitrogen) 16 mg/dL (9.8-20.1); Calc. Creatinine Clearance 45 mL/min (70-130); Calcium 6.3 mg/dL (7.8-10.44); Carbon Dioxide 12 mmol/L (23-31); Chloride 115 mmol/L (98-107); Glucose 193 mg/dL (83-110); Magnesium 2.2 mg/dL (1.6-2.6); Sodium 137 mmol/L (136-145)
[2020-04-09 04:51] LABS: Hemoglobin 11.6 g/dL (12.0-16.0); Mean Corpuscular HGB CONC 30.8 g/dL (32.0-36.0); Mean Corpuscular Hemoglobin 27.8 pg (27.0-31.0); Mean Corpuscular Volume 90.2 fL (78.0-98.0); Mean Platelet Volume 8.1 fL (7.4-10.4); Platelet Count 141 thou/uL (130-400); Red Blood Cell (RBC) Count 4.17 mill/uL (4.20-5.40); White Blood Cell (WBC) Count 15.5 thou/uL (4.8-10.8)
[2020-04-09 04:52] LABS: Band 4 % (5-11); Lymphocytes 4 % (21-51); MDiff Complete? YES; Monocytes 4 % (0-10); Neutrophil 88 % (42-75); Platelet Morphology Comment Appears Adequate
[2020-04-09 04:53] LABS: Phosphorus 3.4 mg/dL (2.3-4.7)
[2020-04-09] MEDS: Norepinephrine 8 MG in Dextrose 5% in Water 242 ML IVPB SCH ×2 (06:13→16:40)
--- NOTE | 2020-04-09 08:22 | PDOC.FM ---
- Subjective Subjective: Patient was intubated and sedated at the time of evaluation. No acute events were reported overnight by the Resident Night Team or Nursing Staff. - Objective Vital Signs & Weight: Vital Signs (12 hours) Temp Pulse Resp BP Pulse Ox 04/09/20 07:14 101 H 04/09/20 07:13 103 H 12 100 04/09/20 05:59 14 04/09/20 04:00 97.6 F 19 04/09/20 02:56 103 H 14 100 04/09/20 02:52 102 H 111/52 L 04/09/20 02:00 16 04/09/20 00:00 97.6 F 24 H 04/08/20 22:34 104 H 115/81 04/08/20 22:33 104 H 16 100 04/08/20 22:00 20 Weight Admit Weight 72.6 kg Weight 84.028 kg Most Recent Monitor Data Heart Rate from ECG 102 NIBP 103/87 NIBP BP-Mean 92 Respiration from ECG 12 SpO2 100 I&O: 04/08/20 04/09/20 04/10/20 06:59 06:59 06:59 Intake Total 4239.6 2518.3 Output Total 592 976 Balance 3647.6 1542.3 Result Diagrams: 04/09/20 03:55 04/09/20 03:55 Phys Exam - Physical Examination Constitutional: NAD HEENT: sclera anicteric Neck: supple Respiratory: no wheezing, no rales, no rhonchi, clear to auscultation bilateral Cardiovascular: no significant murmur, no rub Mild tachycardia Gastrointestinal: soft, non-tender, no distention Ostomy in place, minimal bowel sounds Musculoskeletal: pulses present Moderate edema in bilateral UEs Deviation from normal: Bilateral inguinal rash - stable Dx/Plan (1) Diverticulitis Code(s): K57.92 - DVTRCLI OF INTEST, PART UNSP, W/O PERF OR ABSCESS W/O BLEED Status: Acute (2) Septic shock Code(s): A41.9 - SEPSIS, UNSPECIFIED ORGANISM; R65.21 - SEVERE SEPSIS WITH SEPTIC SHOCK Status: Acute (3) UTI (urinary tract infection) Status: Acute (4) HLD (hyperlipidemia) Code(s): E78.5 - HYPERLIPIDEMIA, UNSPECIFIED Status: Chronic (5) HTN (hypertension) Code(s): I10 - ESSENTIAL (PRIMARY) HYPERTENSION Status: Chronic (6) Hypothyroidism Code(s): E03.9 - HYPOTHYROIDISM, UNSPECIFIED Status: Chronic (7) Acute respiratory failure with hypoxia Code(s): J96.01 - ACUTE RESPIRATORY FAILURE WITH HYPOXIA Status: Resolved - Plan Plan: Patient is an 85 y/o female who presented to the hospital for evaluation of ABD pain. #Septic Shock, 2/2 to Diverticulitis, UTI - s/p 3 L NS, Vanc and Zosyn in ED - Femoral Central Line (L) placed in ED for pressure support with Levophed required to obtain MAP goal of 65 - LA: 4.1 > 2.1 - Transitioned ABx from Metronidazole and Cefepime to Meropenem (04/05) - BCx: NGTD - UA: Turbid, 500 LE, >50 WBCs, 3+ bacteria - UCx: Klebsiella, Enterobacter and Aerococcus urinae - fisher-sensitive - Stool Cx: Pseudomonas - Will monitor Urine Output with parker - currently low based on body weight - CT ABD: Diverticulitis w/o signs of abscess or perforation - Dr. Dickinson (GenSurg): Consulted on 04/05 s/p Ex-Lap w/ resection of Splenic F lexure, Descending Colon, and Sigmoid Colon and placement of Colostomy -Intubated on 04/05 prior to surgery will attempt to wean as tolerated #Anion Gap Metabolic Acidosis 2/2 to Lactic Acidosis, resolved - Due to above - LA: 4.1 > 2.0 - A>12 - Bicarb: 10 > 16 #JOEL, improved - Cr: 1.91 > 2.05 > 2.0 > 1.74 > 1.48 > 1.3 - Will continue to monitor closely and asses fluid status and urine output - may administer Furosemid x1 today #Indeterminate Trop - Likely 2/2 demand ischemia - Trop: 0.029>0.049>0.075>0.103 - No active chest pain - EKG: very mild ST depression in V4 and V5, nonspecific ST segment changes in lateral leads noted on previous EKGs #HFpEF -Last echo 12/20: EF 65-70%, Grade 1/3 diastolic dysfunction -Aware, will avoid fluid overload #Chronic Medical Conditions: HTN - Currently holding antihypertensives due to hypotension HLD - Will continue home medication regimen once no longer NPO (Atorvastatin 40 mg) Hypothyroid - Will continue home medication regimen once no longer NPO (Levothyroxine 112 mcg) Osteoporosis - Will continue home medication regimen once no longer NPO (Weekly Fosamax 70mg) Overactive Bladder - Will continue home medication regimen once no longer NPO (4 mg Tolterodine) Cardiac Arrhythmia - Aware, has pacemaker in place YVAN - Will resume CPAP at night once respiratory function improves History of Giant Cell Arteritis - Aware, s/p steroid taper *Of note, patient has not taken any home medications in weeks due to N/V PCP: [facility] Code: FULL Diet: NPO Abx: Meropenem DVT ppx: Heparin GI ppx: protonix Fluids: NS @ 250 mls/hr Dispo: Patient is currently admitted to the CCU following Ex-Lap for ongoing management of hypotension, fluid resuscitation, electrolyte monitoring, and IV ABx. Condition remains guarded with poor overall prognosis. Will continue to monitor closely and coordinate with Pulm, GenSurg as needed. Expected LOS > 48H. Addendum - Attending - Attending Attestation Date/Time: 04/09/20 9792 I personally evaluated the patient and discussed the management with Dr. Centeno. I agree with the History, Examination, Assessment and Plan documented above with any addition or exceptions noted below. Patient continues to be critically ill. She remains ventilated for respiratory failure 2/2 previous septic shock. Her ostomy is waking up and hopeful can tra nsition to TF once surgery clears. She continues to have issues with hypotension, possible from relative adrenal insufficiency. Continue Vasopressin and wean Levophed per Pulm. Overall showing some improvement and hopeful to wean from vent soon. Hyperchloremic met acidosis likely from her large volume NS resuscitation.
[2020-04-09] MEDS: Meropenem 1 GM in Sodium Chloride 0.9% 100 ML IVPB SCH ×2 (09:25→21:23)
[2020-04-09] MEDS: Sodium Chloride 0.9% 1,000 ML IV SCH (09:25)
[2020-04-09] MEDS: Pantoprazole 40 MG VIAL IVP SCH (09:26)
--- NOTE | 2020-04-09 09:53 | RAD ---
ONE VIEW CHEST: HISTORY: On ventilator. Followup evaluation. COMPARISON: 04/08/2020. FINDINGS: Endotracheal tube and nasogastric tubes are unchanged in position. Dual-lead left subclavian cardiac pacemaking device remains in place. Cardiac silhouette is magnified by projection but stable in siz e. Bilateral pleural and parenchymal lung changes are seen at each lung base and in the mid lung zon es which may be related to moderate-sized bilateral pleural effusions and associated volume loss. No other interval change. IMPRESSION: Overall stable chest. POS: [facility]
[2020-04-09] MEDS: Heparin 5,000 UNITS/ML VIAL SC SCH ×2 (10:12→21:25)
[2020-04-09] MEDS ORDERED: Calcium Chloride 1 GM/10 ML Abboject SYRINGE IVP SCH (11:15)
[2020-04-09] MEDS: Furosemide 20 MG/2 ML VIAL SLOW IVP SCH ×2 (12:30→18:39)
[2020-04-09] MEDS: Hydrocortisone Sod Succ/PF 100 mg/2 ml Vial IVP SCH ×2 (13:57→21:24)
[2020-04-09] MEDS: Lactated Ringer's 1,000 ML IV SCH (13:58)
--- NOTE | 2020-04-09 17:22 | PRG ---
DATE OF SERVICE: 04/09/2020 SUBJECTIVE: I am seeing Ms. Mao on behalf of Dr. Dickinson. The patient is postoperative day #4, status post exploratory laparotomy and partial colectomy with Cortez procedure. She remains on mechanical ventilator support on norepinephrine and vasopressin, continuous infusion. Urinary output this morning is marginal. Overall fluid intake reveals a patient who is ahead 9000 mL since admission. OBJECTIVE: VITAL SIGNS: This morning include blood pressure of 88/68, pulse 117, respiratory rate is 12, maximum temperature in the last 24 hours is 98.7 degrees Fahrenheit, oxygen saturation is 99% on FiO2 of 40% on mechanical ventilator support. HEENT: Pupils equally round and reactive to light bilaterally. HEART: Reveals regular rate with sinus tachycardia. LUNGS: Reveal scattered rhonchi. Breathing regular and nonlabored. ABDOMEN: Soft and obese. She has general anasarca. Colostomy is viable and functional with stool. NEUROLOGIC: Reveals no focal deficits present. LABORATORY FINDINGS: Today include a CBC with 15,500 white blood cells, hemoglobin and hematocrit 11.6 and 37.6 respectively. Platelet count is 141,000. Metabolic profile; sodium 137, potassium 5.0, chloride is 115, bicarb is 12, BUN 16, creatinine is 1.27, glucose 193, phosphorus is 3.4, magnesium is 2.2. Serum cortisol level yesterday was 10.50. Arterial blood gases since admission, all revealed ionized calcium which is between 0.95 and 1.08. IMPRESSION: 1. Postop day #4, status post exploratory laparotomy, partial colectomy with Cortez procedure. 2. Acute respiratory failure, improving. 3. Acute hypocalcemia. 4. Acute non-gap hyperchloremic metabolic acidosis. 5. Acute adrenal insufficiency. PLAN: 1. Correct abnormal electrolytes. 2. We will start the patient on enteral nutritional supplementation as it appears her bowel function has returned. 3. Maintenance IV fluid will be changed to Ringer's lactate to decrease total chloride infusion. Job ID: [id number]
--- NOTE | 2020-04-09 17:59 | PRG ---
DATE OF SERVICE: 04/09/2020 SUBJECTIVE: Juana Mao continues to require pressors. Trying to wean the Levophed off. She is on vasopressin. She received stress dose of steroids, but I am not sure that this has really helped. We will continue with steroids for now. OBJECTIVE: GENERAL: She is sedated. LUNGS: She had equal breath sounds. HEART: Regular rhythm. ABDOMEN: Soft. _nontender LABORATORY DATA: White count is 15.5, hemoglobin 11.6, and platelets 141. Sodium 137, potassium 5, chloride 115, bicarb 12, BUN 16, and creatinine 1.27. IMPRESSION: 1. Respiratory failure. 2. Peritonitis. 3. Status post partial colon resection with colostomy. . PLAN: Continue supportive care. Critical care time 30 min. Job ID: [id number] MTDD
[2020-04-10] MEDS: Lorazepam 2 MG/ML VIAL SLOW IVP PRN (00:23)
[2020-04-10] MEDS: Albuterol Sulfate 1.25 MG/3 ML NEB NEB SCH ×6 (02:20→22:43)
[2020-04-10] MEDS: Furosemide 20 MG/2 ML VIAL SLOW IVP SCH (03:33)
[2020-04-10 04:54] LABS: Hemoglobin 10.5 g/dL (12.0-16.0); Lymphocytes 9 % (21-51); MDiff Complete? YES; Mean Corpuscular HGB CONC 31.8 g/dL (32.0-36.0); Mean Corpuscular Hemoglobin 28.5 pg (27.0-31.0); Mean Corpuscular Volume 89.5 fL (78.0-98.0); Mean Platelet Volume 8.4 fL (7.4-10.4); Metamyelocyte 2 % (0-0); Monocytes 4 % (0-10); Neutrophil 85 % (42-75); Platelet Clumps SLIGHT; Platelet Count 61 thou/uL (130-400); Platelet Morphology Comment Appears Decreased; RBC Distribution Width 13.9 % (11.5-14.5); RBC Morphology Normal; Red Blood Cell (RBC) Count 3.68 mill/uL (4.20-5.40); White Blood Cell (WBC) Count 14.5 thou/uL (4.8-10.8)
[2020-04-10 05:02] LABS: Anion Gap 16 mmol/L (10-20); BUN (Urea Nitrogen) 19 mg/dL (9.8-20.1); Calc. Creatinine Clearance 51 mL/min (70-130); Calcium 7.6 mg/dL (7.8-10.44); Carbon Dioxide 9 mmol/L (23-31); Chloride 116 mmol/L (98-107); Glucose 130 mg/dL (83-110); Potassium 4.6 mmol/L (3.5-5.1); Sodium 136 mmol/L (136-145)
[2020-04-10] MEDS: Hydrocortisone Sod Succ/PF 100 mg/2 ml Vial IVP SCH (05:36)
[2020-04-10] MEDS: Lactated Ringer's 1,000 ML IV SCH (05:42)
--- NOTE | 2020-04-10 06:02 | PDOC.FM ---
- Subjective Subjective: NAEO. She was given bicarb and albumin per nursing followed by adam. She has had good urine output. She did have some output in the ostomy. She has started tube feeds and has now been weened off of levo and vasopressin. Patient currently ventilated and sedated when I saw patient this morning. - Objective MAR Reviewed: Yes Vital Signs & Weight: Vital Signs (12 hours) Temp Pulse Resp BP Pulse Ox 04/10/20 04:00 97.8 F 19 04/10/20 03:58 98.1 F 04/10/20 02:21 91 99/67 04/10/20 02:20 91 17 100 04/10/20 02:00 17 04/10/20 00:00 97.2 F L 16 04/09/20 23:36 97.0 F L 04/09/20 22:28 97 99/64 04/09/20 22:26 97 16 100 04/09/20 22:00 18 04/09/20 20:00 97.8 F 17 100 04/09/20 19:50 97.5 F L 04/09/20 18:47 113 H 118/73 04/09/20 18:44 112 H 19 100 Weight Admit Weight 72.6 kg Weight 91.172 kg Most Recent Monitor Data Heart Rate from ECG 102 NIBP 96/64 NIBP BP-Mean 74 Respiration from ECG 12 SpO2 100 I&O: 04/08/20 04/09/20 04/10/20 06:59 06:59 06:59 Intake Total 4239.6 2518.3 1475.9 Output Total 592 976 993 Balance 3647.6 1542.3 482.9 Result Diagrams: 04/10/20 03:56 04/10/20 07:38 Phys Exam - Physical Examination Constitutional: NAD HEENT: moist MMs Respiratory: clear to auscultation bilateral Cardiovascular: RRR Gastrointestinal: soft, non-tender hypoactive bowel sounds diffuse edema present Skin: no rash Dx/Plan - Plan Plan: Patient is an 85 y/o female who presented to the hospital for evaluation of ABD pain. #Septic Shock, 2/2 to Bowel Ischemia with concomitant Diverticulitis s/p 3 L NS, Vanc and Zosyn in ED. LA: 4.[address] ABD: Diverticulitis w/o signs of abscess or perforation - Femoral Central Line (L) placed in ED for pressure support with Levophed required to obtain MAP goal of 65. Dc levo on 04/10. - Transitioned ABx from Metronidazole and Cefepime to Meropenem (04/05) - BCx: NGTD - Stool Cx: Pseudomonas - Dr. Dickinson (GenSur): Consulted on 04/05 s/p Ex-Lap w/ resection of Splenic Fl exure, Descending Colon, and Sigmoid Colon and placement of Colostomy - Intubated on 04/05 prior to surgery will attempt to wean as tolerated - POD #5 - Pulm consulted, appreciate recs. Will try to wean. - Started tube feeds. Continue LR @ 50ml/hr. #UTI UA: Turbid, 500 LE, >50 WBCs, 3+ bacteria - UCx: Klebsiella, Enterobacter and Aerococcus urinae - fisher-sensitive - Wheeler inplace - Abx as above #Mild adrenal insufficiency AM Cortisol of 10 - Given stress dose of steroids, continued on solu-medrol. #Anion Gap Metabolic Acidosis 2/2 to Lactic Acidosis, resolved - Due to above - LA: 4.1 > 2.0; A>12; Bicarb: 10 > 16 #JOEL, improved - Cr: 1.91 > 2.05 > 2.0 > 1.74 > 1.48 > 1.3 > 1.21 - Will continue to monitor closely and asses fluid status and urine output. #Indeterminate Trop Likely 2/2 demand ischemia. No active chest pain. EKG: very mild ST depression in V4 and V5, nonspecific ST segment changes in lateral leads noted on previous EKGs. - Trop: 0.029>0.049>0.075>0.103 #HFpEF Last echo 12/20: EF 65-70%, Grade 1/3 diastolic dysfunction - Aware, will avoid fluid overload #Chronic Medical Conditions: HTN - Currently holding antihypertensives due to hypotension HLD - Will continue home medication regimen once no longer NPO (Atorvastatin 40 mg) Hypothyroid - Will continue home medication regimen once no longer NPO (Levothyroxine 112 mcg) Osteoporosis - Will continue home medication regimen once no longer NPO (Weekly Fosamax 70mg) Overactive Bladder - Will continue home medication regimen once no longer NPO (4 mg Tolterodine) Cardiac Arrhythmia - Aware, has pacemaker in place YVAN - Will resume CPAP at night once respiratory function improves History of Giant Cell Arteritis - Aware, s/p steroid taper *Of note, patient has not taken any home medications in weeks due to N/V PCP: [facility] Code: FULL Diet: NPO Abx: Meropenem DVT ppx: Heparin GI ppx: protonix Fluids: LR @ 50ml/hr Dispo: Patient is currently admitted to the CCU following Ex-Lap for ongoing management. She is now off pressors. Will continue to monitor electrolytes, receive IV abx. Condition remains guarded with poor overall prognosis. Will continue to monitor closely and coordinate with Pulm, GenSurg as needed. Palliative care consulted to help with family support, advanced directives, and goals of care. Expected LOS > 48H. Addendum - Attending - Attending Attestation Date/Time: 04/10/20 5880 I personally evaluated the patient and discussed the management with Dr. Babb I agree with the History, Examination, Assessment and Plan documented above with any addition or exceptions noted below. 85 yo female admitted for septic shock complicated by diverticulitis and ischemic colitis Left colectomy with colostomy on 04/05 Remains poor prognosis and guarded. Still on MV. Still requiring pressor support. Severe anasarca from hypervolemia from resuscitation. Received Albumin and lasix to help with 3rd spacing. Colostomy with output. TF to start. Will wean off pressors if able today. Hyperchloremic metabolic acidosis with bicarb loss. Concern for renal involvement along with NS use as cause. Do not feel patient is acidemic. Bicarb replaced. Trend throughout the day. Consider RTA. Nephro consulted if continues to have bicarb loss. Continue to monitor stool output. Ching
[2020-04-10] MEDS ORDERED: Sodium Bicarb 50 MEQ/50 ML Abboject 8.4% SYRINGE IVP SCH ×2 (06:15→17:00)
[2020-04-10 08:19] LABS: Anion Gap 16 mmol/L (10-20); BUN (Urea Nitrogen) 21 mg/dL (9.8-20.1); Calc. Creatinine Clearance 48 mL/min (70-130); Calcium 7.7 mg/dL (7.8-10.44); Carbon Dioxide 12 mmol/L (23-31); Chloride 116 mmol/L (98-107); Glucose 136 mg/dL (83-110); Potassium 4.2 mmol/L (3.5-5.1); Sodium 140 mmol/L (136-145)
[2020-04-10 08:21] LABS: ALT (SGPT) 131 U/L (8-55); AST (SGOT) 244 U/L (5-34); Albumin 3.1 g/dL (3.4-4.8); Alkaline Phosphatase 122 U/L (40-110); Bilirubin, Direct 1.7 mg/dL (0.1-0.3); Bilirubin, Total 2.3 mg/dL (0.2-1.2); Protein, Total 4.1 g/dL (6.0-8.3)
[2020-04-10] MEDS ORDERED: methylPREDNISolone Sod Succ 40 MG VIAL IVP SCH (09:00)
[2020-04-10] MEDS: Pantoprazole 40 MG VIAL IVP SCH (09:25)
[2020-04-10] MEDS: Meropenem 1 GM in Sodium Chloride 0.9% 100 ML IVPB SCH ×2 (09:25→21:45)
[2020-04-10] MEDS: methylPREDNISolone Sod Succ 40 MG VIAL IVP SCH (09:25)
[2020-04-10] MEDS: Heparin 5,000 UNITS/ML VIAL SC SCH ×2 (09:26→21:45)
[2020-04-10] MEDS ORDERED: Calcium Chloride 13.6 MEQ in Sodium Chloride 0.9% 100 ML IVPB SCH (10:30)
[2020-04-10] MEDS ORDERED: Furosemide 20 MG/2 ML VIAL SLOW IVP SCH (10:30)
[2020-04-10] MEDS ORDERED: Calcium Chloride 1 GM/10 ML Abboject SYRINGE ONE (11:21)
[2020-04-10] MEDS: Albumin 25% 25 GM/100 ML BOT IVPB SCH ×2 (11:23→18:12)
--- NOTE | 2020-04-10 11:24 | RAD ---
CHEST 1 VIEW: Date: 04/10/2020 COMPARISON: 04/09/2020. HISTORY: Respiratory distress. Ventilated patient. FINDINGS: Redemonstration of endotracheal and nasogastric tube. Stable left-sided transvenous pacemaker. Persis tent cardiomegaly, pleural and parenchymal changes. No pneumothorax. Chronic changes in the right hum eral neck. IMPRESSION: No significant interval change. POS: OFF
[2020-04-10] MEDS: fentaNYL Citrate/PF 2,000 MCG in Sodium Chloride 0.9% 60 ML IV SCH (12:31)
--- NOTE | 2020-04-10 15:00 | PDOC.BPN ---
- Brief Progress Note Gave update to son, medical decision maker. They appreciated this. They clarified DNR status that is consistent with patient's medical directives. Order placed and they say paperwork being submitted to hospital.
[2020-04-10 15:38] LABS: Anion Gap 16 mmol/L (10-20); BUN (Urea Nitrogen) 22 mg/dL (9.8-20.1); Calc. Creatinine Clearance 45 mL/min (70-130); Calcium 8.8 mg/dL (7.8-10.44); Carbon Dioxide 13 mmol/L (23-31); Chloride 117 mmol/L (98-107); Glucose 110 mg/dL (83-110); Potassium 3.9 mmol/L (3.5-5.1); Sodium 142 mmol/L (136-145)
--- NOTE | 2020-04-10 18:14 | PRG ---
DATE OF SERVICE: 04/10/2020 SUBJECTIVE: Juana Mao remains mechanically ventilated. OBJECTIVE: VITAL SIGNS: She is afebrile. Respiratory rate is 12, FiO2 is at 40, heart rate is 100, blood pressure 97/53. She is now off her pressors. LUNGS: Clear. HEART: Regular rhythm. ABDOMEN: Soft. EXTREMITIES: Without asymmetry. IMAGING: Chest x-ray is unchanged. IMPRESSION: 1. Respiratory failure. 2. Status post laparotomy. 3. Probable noncardiogenic pulmonary edema. We will continue supportive care. Hopeful weaning now that she is off pressors in the next 24 to 48 hours. Critical care time 30 min. Job ID: [id number] MTDD
--- NOTE | 2020-04-10 18:16 | PRG ---
DATE OF SERVICE: 04/10/2020 SUBJECTIVE: Ms. Mao is an 85-year-old woman. The patient is postoperative day #5, status post exploratory laparotomy and partial colectomy with Cortez's procedure. She remains on mechanical ventilator support albeit stable. Urinary output responded well to gentle diuresis over the last 24 hours. She is arousable, opens the eyes to voice, moves all extremities and follows commands. OBJECTIVE: VITAL SIGNS: This morning off norepinephrine includes blood pressure 99/77, pulse is 115, maximum temperature in last 24 hours is 98.4 degrees Fahrenheit, oxygen saturation 100% on FiO2 of 40% on mechanical ventilator support. HEENT: Pupils are equal, round, reactive to light and accommodation. NECK: She has no jugular venous distention noted. HEART: Reveals irregular rate with tachycardia. LUNGS: Reveals scattered rhonchi. Breathing, regular and nonlabored. ABDOMEN: Soft and obese. She has generalized anasarca, which is improving. Colostomy is viable and functional with stool. The incisional wound drains of serous fluid. This is likely secondary to anasarca. No gross purulence present. NEUROLOGIC: Reveals no focal deficits present. LABORATORY FINDINGS: Today include CBC with 14,500 white blood cells, hemoglobin and hematocrit of 10.5 and 32.9 respectively. Platelet count is 61,000, down from 141,000 yesterday. The patient was started on unfractionated heparin yesterday for VTE prophylaxis and this has since been stopped. Metabolic profile, sodium 142, potassium 3.9, chloride is 117, bicarb is 13, BUN is 22, creatinine is 1.37, this is up from creatinine was 1.29 yesterday. Glucose is 110. Total bilirubin is 2.3, AST and ALT 244 and 131 respectively. Alkaline phosphatase is 122. IMPRESSIONS: 1. Postoperative day #5, status post exploratory laparotomy with Cortez's procedure. 2. Acute respiratory failure, stable. 3. Acute kidney injury with anasarca, stable. PLAN: 1. Incisional wound VAC will be applied. 2. We will attempt gentle diuresis with a couple more doses of furosemide. 3. No further surgical indication at this time. Job ID: [id number]
[2020-04-11] MEDS: Lactated Ringer's 1,000 ML IV SCH (00:29)
[2020-04-11] MEDS: Albuterol Sulfate 1.25 MG/3 ML NEB NEB SCH ×6 (02:44→22:58)
[2020-04-11] MEDS: Albumin 25% 25 GM/100 ML BOT IVPB SCH (03:12)
[2020-04-11] MEDS ORDERED: Metoclopramide HCl 10 MG/2 ML VIAL IVP SCH (04:15)
[2020-04-11 04:19] LABS: Band 8 % (5-11); Hemoglobin 9.7 g/dL (12.0-16.0); Lymphocytes 9 % (21-51); MDiff Complete? YES; Mean Corpuscular HGB CONC 33.1 g/dL (32.0-36.0); Mean Corpuscular Hemoglobin 28.8 pg (27.0-31.0); Mean Corpuscular Volume 87.2 fL (78.0-98.0); Mean Platelet Volume 9.1 fL (7.4-10.4); Metamyelocyte 1 % (0-0); Monocytes 10 % (0-10); Myelocyte 1 % (0-0); Neutrophil 70 % (42-75); Nucleated RBC 1 % (0); Platelet Count 68 thou/uL (130-400); Platelet Morphology Comment Appears Decreased; Promyelocytes 1 % (0-0); RBC Distribution Width 13.8 % (11.5-14.5); Red Blood Cell (RBC) Count 3.38 mill/uL (4.20-5.40); White Blood Cell (WBC) Count 8.4 thou/uL (4.8-10.8)
[2020-04-11 04:32] LABS: ALT (SGPT) 103 U/L (8-55); AST (SGOT) 129 U/L (5-34); Albumin 4.1 g/dL (3.4-4.8); Alkaline Phosphatase 116 U/L (40-110); Anion Gap 16 mmol/L (10-20); BUN (Urea Nitrogen) 27 mg/dL (9.8-20.1); Bilirubin, Total 2.2 mg/dL (0.2-1.2); Calc. Creatinine Clearance 40 mL/min (70-130); Calcium 8.9 mg/dL (7.8-10.44); Carbon Dioxide 14 mmol/L (23-31); Chloride 115 mmol/L (98-107); Globulin 1.2 g/dL (2.4-3.5); Glucose 116 mg/dL (83-110); Potassium 3.7 mmol/L (3.5-5.1); Protein, Total 5.3 g/dL (6.0-8.3); Sodium 141 mmol/L (136-145)
--- NOTE | 2020-04-11 06:12 | PDOC.FM ---
- Subjective Subjective: Patient made DNR by family yesterday. Overnight, nursing noted that patient had residual tube feeds. She has had minimal to no output in the ostomy. They stopped the tube feeds overnight. Patient sedated this morning. Otherwise, no concerns per nursing. - Objective MAR Reviewed: Yes Vital Signs & Weight: Vital Signs (12 hours) Temp Pulse Resp BP Pulse Ox 04/11/20 03:24 97.2 F L 04/11/20 02:44 116 H 16 100 04/11/20 02:00 13 04/11/20 00:00 97.5 F L 13 04/10/20 22:44 110 H 105/70 04/10/20 22:43 110 H 16 100 04/10/20 22:00 16 04/10/20 20:00 97.6 F 14 100 04/10/20 19:46 97.0 F L 04/10/20 19:02 108 H 100/66 04/10/20 19:01 103 H 14 100 Weight Admit Weight 72.6 kg Weight 91.1 kg Most Recent Monitor Data Heart Rate from ECG 103 NIBP 126/83 NIBP BP-Mean 97 Respiration from ECG 12 SpO2 96 I&O: 04/09/20 04/10/20 04/11/20 06:59 06:59 06:59 Intake Total 2518.3 2678.3 1128 Output Total 976 1113 1270 Balance 1542.3 1565.3 -142 Result Diagrams: 04/11/20 03:48 04/11/20 03:48 Phys Exam - Physical Examination Constitutional: NAD HEENT: moist MMs Neck: supple Respiratory: clear to auscultation bilateral Cardiovascular: RRR, no significant murmur, no rub Gastrointestinal: soft ostomy in place; hypoactive bs diffuse edema on ventilator, sedated, difficult to assess neuro status Skin: normal turgor, cap refill <2 seconds Dx/Plan - Plan Plan: Patient is an 85 y/o female who presented to the hospital for evaluation of ABD pain. #Septic Shock, 2/2 to Bowel Ischemia with concomitant Diverticulitis s/p 3 L NS, Vanc and Zosyn in ED. LA: 4.[address] ABD: Diverticulitis w/o signs of abscess or perforation - Femoral Central Line (L) placed in ED for pressure support with Levophed required to obtain MAP goal of 65. Dc levo on 04/10. - Transitioned ABx from Metronidazole and Cefepime to Meropenem (04/05) - BCx: NGTD - Stool Cx: Pseudomonas - Dr. Dickinson (GenSurg): Consulted on 04/05 s/p Ex-Lap w/ resection of Splenic Flexure, Descending Colon, and Sigmoid Colon and placement of Colostomy - Intubated on 04/05 prior to surgery will attempt to wean as tolerated - POD #6 - Pulm consulted, appreciate recs. Will try to wean in next 24-48 hrs now that off pressors. - Tube feeds stopped. Will wait to restart once bowels are active again. Can consider reglan - caution due to recent GI surgeries. Will also continue free water flushes through tube to help stimulate bowels. Given albumin followed by lasix. Continue LR @ 50ml/hr. #Mild adrenal insufficiency AM Cortisol of 10 - Given stress dose of steroids, continued on solu-medrol. #JOEL - Cr: 1.91 > 2.05 > 2.0 > 1.74 > 1.48 > 1.3 > 1.21. Worsened 04/11 to 1.53. - Will continue to monitor closely and asses fluid status and urine output. #UTI, resolved UA: Turbid, 500 LE, >50 WBCs, 3+ bacteria - UCx: Klebsiella, Enterobacter and Aerococcus urinae - fisher-sensitive - Wheeler inplace - Abx as above; Adequately tx at this point #Anion Gap Metabolic Acidosis 2/2 to Lactic Acidosis, resolved - Due to above - LA: 4.1 > 2.0; A>12; Bicarb: 10 > 16 > 14 #Indeterminate Trop Likely 2/2 demand ischemia. No active chest pain. EKG: very mild ST depression in V4 and V5, nonspecific ST segment changes in lateral leads noted on previous EKGs. - Trop: 0.029>0.049>0.075>0.103 #HFpEF Last echo 12/20: EF 65-70%, Grade 1/3 diastolic dysfunction - Aware, will avoid fluid overload #Chronic Medical Conditions: HTN - Currently holding antihypertensives due to hypotension HLD - Will continue home medication regimen - (Atorvastatin 40 mg) Hypothyroid - Will continue home medication - (Levothyroxine 112 mcg) Osteoporosis - Will continue home medication-(Weekly Fosamax 70mg) Overactive Bladder - Will continue home medication regimen - (4 mg Tolterodine) Cardiac Arrhythmia - Aware, has pacemaker in place YVAN - Will resume CPAP at night once respiratory function improves History of Giant Cell Arteritis - Aware, s/p steroid taper *Of note, patient has not taken any home medications in weeks due to N/V PCP: Contreras Code: FULL Diet: tube feeds Abx: Meropenem DVT ppx: Heparin GI ppx: protonix Fluids: LR @ 50ml/hr Dispo: Patient is currently admitted to the CCU following Ex-Lap for ongoing management. She is now off pressors. Will continue to monitor electrolytes, receive IV abx. Condition remains guarded with poor overall prognosis. Will continue to monitor closely and coordinate with Pulm, GenSurg as needed. Palliative care consulted to help with family support, advanced directives, and goals of care- patient changed to DNR status by brother (EDGARDO). Expected LOS > 48H. Addendum - Attending - Attending Attestation Date/Time: 04/11/20 1012 I personally evaluated the patient and discussed the management with Dr. Babb I agree with the History, Examination, Assessment and Plan documented above with any addition or exceptions noted below. 85 yo female admitted for septic shock complicated by UTI, diverticulitis and ischemic colitis Left colectomy with colostomy on 04/05 Remains stable on vent. Still requiring FIO2 to 35%. Pulm following and managing. Has now received 7 days of Emiliano. Fisher sensitive Kleb. Negative blood cultures and now infective bowel removed. Procal pending. If negative would stop. Will notify surg and follow their recs if they would like to continue but risk for iatrogenic complications. Not tolerating tube feeds at this time. Slow transit. Will continue FH2O as tolerated. Receiving 3rd dose of albumin. Will follow with lasix. Severe anasarca due to 72 hours or more of vasopressin. Will be difficult to treat/relieve. Could benefit from bed mobility exercises. Remains guarded but promising. Ching
[2020-04-11] MEDS: Levothyroxine Sodium 112 MCG TAB PO SCH (06:42)
[2020-04-11] MEDS: Heparin 5,000 UNITS/ML VIAL SC SCH ×2 (07:44→21:25)
[2020-04-11] MEDS: methylPREDNISolone Sod Succ 40 MG VIAL IVP SCH (08:08)
[2020-04-11] MEDS: Pantoprazole 40 MG VIAL IVP SCH (08:08)
[2020-04-11] MEDS ORDERED: Non-Formulary Item 1 EACH (Diltiazem Hcl [Diltiazem 24hr Cd] 240 MG Cap.Er.24h) PO SCH (09:00)
[2020-04-11] MEDS ORDERED: Non-Formulary Item 1 EACH (Levothyroxine Sodium [Levothyroxine] 112 MCG Capsule) PO SCH (09:00)
[2020-04-11] MEDS: Meropenem 1 GM in Sodium Chloride 0.9% 100 ML IVPB SCH ×2 (09:35→21:24)
--- NOTE | 2020-04-11 10:07 | RAD ---
AP CHEST: Date: 04/11/2020 INDICATION: CCU follow-up, on ventilator. COMPARISON: 04/10/2020. FINDINGS: ET tube and NG tube remain in place. There is opacification of both lung bases consistent with bilateral effusions and bibasilar atelectas is and infiltrates. Hazy infiltrate extends into the right mid lung. Upper lung zones are clear. Pacemaker leads again noted with ET tube and NG tube unchanged. IMPRESSION: Bibasilar infiltrates and effusions, not significantly changed from yesterday. POS: AGW
[2020-04-11] MEDS ORDERED: Furosemide 20 MG/2 ML VIAL SLOW IVP SCH (10:15)
[2020-04-11] MEDS ORDERED: Metolazone 2.5 MG TAB PO SCH (11:30)
[2020-04-11] MEDS ORDERED: Furosemide 40 MG/4 ML VIAL SLOW IVP SCH (11:30)
[2020-04-11] MEDS ORDERED: Albumin 25% 25 GM/100 ML BOT IVPB SCH (11:30)
--- NOTE | 2020-04-11 16:18 | PRG ---
DATE OF SERVICE: 04/11/2020 SUBJECTIVE: Ms. Mao is an 85-year-old woman. She is postoperative day #6, status post exploratory laparotomy, partial colectomy with Cortez procedure. She remains on mechanical ventilator support. Sedation is decreased today. She moves all extremities. She is tolerating ventilatory wean. Urinary output is marginal this morning. Overall, her I's and O's reveal positive fluid balance. OBJECTIVE: VITAL SIGNS: This morning on no vasopressor support include blood pressure 121/84, pulse 105, respiratory rate is 14, maximum temperature in last 24 hours is 98.4 degrees Fahrenheit, oxygen saturation is 98%. This is on FiO2 of 35% on mechanical ventilator support. HEENT: Pupils are equal, round, reactive to light bilaterally. HEART: Reveals irregular rate with tachycardia. LUNGS: Reveal scattered rhonchi. Breathing is regular and nonlabored. ABDOMEN: Soft and obese. There remains generalized anasarca. Colostomy is viable. There is some liquid stool with scant amount of gas present. NEUROLOGIC: Reveals no focal deficits present. LABORATORY FINDINGS: Today include a CBC with 8400 white blood cells, hemoglobin and hematocrit 9.7 and 29.4 respectively. Platelet count is 68,000, improving from 61,000 yesterday. Metabolic profile; sodium 141, potassium 3.7, chloride is 115, bicarb is 14, BUN 27, creatinine is 1.53, glucose is 116. Total bilirubin is 2.2. AST and ALT 129 and 103, this is an improvement from 244 and 131 respectively. IMPRESSION: 1. Postoperative day #6, status post exploratory laparotomy, partial colectomy with Cortez procedure. 2. Acute respiratory failure, improving. 3. Acute kidney injury, stable. PLAN: 1. We will continue with gentle diuresis and monitor the patient's urinary output and renal function as endpoint. 2. Resume enteral nutritional supplementation as the residual output of 200 mL is acceptable for gastric feeds. 3. No acute surgical indication for this patient at this time. Job ID: [id number]
--- NOTE | 2020-04-11 18:07 | PRG ---
DATE OF SERVICE: 04/11/2020 SUBJECTIVE: decreased ventilatory support and appears comfortable. OBJECTIVE: VITAL SIGNS: Heart rate in the 120s, blood pressure respiratory rates in the teens. LUNGS: Distant and clear. HEART: Regular rhythm. ABDOMEN: Soft. DIAGNOSTIC STUDIES: Chest x-ray still continues to show haziness in both lung bases, which I suspect is pleural effusions related to her abdominal procedure. White count 15.5 two days ago, it is 8.4 today. Hemoglobin 9.7, platelets 68,000. Sodium 141, potassium 3.7, chloride 115, bicarb 14, BUN 27, creatinine 1.53. IMPRESSION: Respiratory failure associated with laparotomy. Hopefully, we can extubate her tomorrow. Job ID: [id number]
[2020-04-11] MEDS: fentaNYL Citrate/PF 2,000 MCG in Sodium Chloride 0.9% 60 ML IV SCH (19:54)
[2020-04-12] MEDS: Albuterol Sulfate 1.25 MG/3 ML NEB NEB SCH ×6 (02:38→22:39)
[2020-04-12 05:27] LABS: Band 13 % (5-11); Hemoglobin 10.1 g/dL (12.0-16.0); Hypochromia SLIGHT = 6-15 cells (100X) (0-5/hpf); MDiff Complete? YES; Mean Corpuscular HGB CONC 32.1 g/dL (32.0-36.0); Mean Corpuscular Hemoglobin 28.1 pg (27.0-31.0); Mean Corpuscular Volume 87.5 fL (78.0-98.0); Mean Platelet Volume 10.2 fL (7.4-10.4); Monocytes 16 % (0-10); Neutrophil 70 % (42-75); Nucleated RBC 1 % (0); Platelet Count 89 thou/uL (130-400); Platelet Morphology Comment Appears Decreased; RBC Distribution Width 13.9 % (11.5-14.5); Reactive Lymphocytes 1 % (0-10); Red Blood Cell (RBC) Count 3.59 mill/uL (4.20-5.40); White Blood Cell (WBC) Count 13.4 thou/uL (4.8-10.8)
[2020-04-12 05:33] LABS: ALT (SGPT) 174 U/L (8-55); AST (SGOT) 298 U/L (5-34); Alkaline Phosphatase 148 U/L (40-110); Anion Gap 19 mmol/L (10-20); BUN (Urea Nitrogen) 33 mg/dL (9.8-20.1); Bilirubin, Total 3.6 mg/dL (0.2-1.2); Calc. Creatinine Clearance 37 mL/min (70-130); Calcium 8.9 mg/dL (7.8-10.44); Carbon Dioxide 13 mmol/L (23-31); Chloride 114 mmol/L (98-107); Globulin 1.1 g/dL (2.4-3.5); Glucose 133 mg/dL (83-110); Potassium 3.6 mmol/L (3.5-5.1); Protein, Total 5.1 g/dL (6.0-8.3); Sodium 142 mmol/L (136-145)
--- NOTE | 2020-04-12 05:59 | PDOC.FM ---
- Subjective Subjective: Patient was intubated and laying in bed at the time of evaluation. Patient was able to nod her head in response to basic questions and denied any pain. No acute overnight events were reported by the Resident Night Team or Nursing Staff. - Objective Vital Signs & Weight: Vital Signs (12 hours) Temp Pulse Resp BP Pulse Ox 04/12/20 04:00 14 04/12/20 02:40 98 122/90 04/12/20 02:38 90 12 97 04/12/20 02:00 14 04/12/20 00:02 97.7 F 04/12/20 00:00 10 L 04/11/20 22:59 105 H 148/74 H 04/11/20 22:58 105 H 14 100 04/11/20 22:00 17 04/11/20 20:00 17 04/11/20 19:45 108 H 132/91 H 04/11/20 19:43 104 H 22 H 96 04/11/20 19:32 98.2 F 04/11/20 19:15 96 04/11/20 18:00 12 Weight Admit Weight 72.6 kg Weight 86.1 kg Most Recent Monitor Data Heart Rate from ECG 106 NIBP 124/85 NIBP BP-Mean 98 Respiration from ECG 19 SpO2 100 I&O: 04/10/20 04/11/20 04/12/20 06:59 06:59 06:59 Intake Total 2678.3 1128 2609 Output Total 1113 1650 1660 Balance 1565.3 -522 949 Result Diagrams: 04/12/20 04:41 04/12/20 04:41 Phys Exam - Physical Examination Constitutional: NAD HEENT: moist MMs Neck: supple Respiratory: no wheezing, no rales, no rhonchi, clear to auscultation bilateral Cardiovascular: RRR, no significant murmur, no rub Gastrointestinal: soft, non-tender, no distention, positive bowel sounds Ostomy bag contained dark green / brown stool Musculoskeletal: pulses present Bilateral UE edema Deviation from normal: Likely candidal rash in inguinal region - stable Dx/Plan (1) Diverticulitis Code(s): K57.92 - DVTRCLI OF INTEST, PART UNSP, W/O PERF OR ABSCESS W/O BLEED Status: Acute (2) Septic shock Code(s): A41.9 - SEPSIS, UNSPECIFIED ORGANISM; R65.21 - SEVERE SEPSIS WITH SEPTIC SHOCK Status: Acute (3) UTI (urinary tract infection) Status: Acute (4) HLD (hyperlipidemia) Code(s): E78.5 - HYPERLIPIDEMIA, UNSPECIFIED Status: Chronic (5) HTN (hypertension) Code(s): I10 - ESSENTIAL (PRIMARY) HYPERTENSION Status: Chronic (6) Hypothyroidism Code(s): E03.9 - HYPOTHYROIDISM, UNSPECIFIED Status: Chronic (7) Acute respiratory failure with hypoxia Code(s): J96.01 - ACUTE RESPIRATORY FAILURE WITH HYPOXIA Status: Resolved - Plan Plan: Patient is an 85 y/o female who presented to the hospital for evaluation of ABD pain. #Septic Shock, 2/2 to Bowel Ischemia with concomitant Diverticulitis -CT ABD: Diverticulitis w/o signs of abscess or perforation -s/p 3 L NS, Vanc and Zosyn in ED -Femoral Central Line (L) placed in ED for pressure support with Levophed gtt required to obtain MAP goal of 65 - dc'd on 04/10 -Transitioned ABx from Metronidazole and Cefepime to Meropenem (04/05) -BCx: NGTD -Stool Cx: Pseudomonas -Dr. Dickinson (GenSur): Consulted on 04/05 s/p Ex-Lap w/ resection of Splenic Flexure, Descending Colon, and Sigmoid Colon and placement of Colostomy -Pulm: Consulted, appreciate recs - currently attempting to wean in next 24-48H now that patient no longer requires BP support -Tube feeds currently running @ 20 ml/hr -Will also continue free water flushes through tube to help stimulate bowels - s/p Albumin followed by Lasix -Will continue LR @ 75 ml/hr #Mild adrenal insufficiency -AM Cortisol: 10 -s/p stress dose of steroids - will continue Methylprednisolone 40 mg IV daily #JOEL -Cr: 1.91 > 2.05 > 2.0 > 1.74 > 1.48 > 1.3 > 1.21. Worsened 04/11 to 1.53. -Will continue to monitor closely and asses fluid status and urine output #UTI, resolved -UA: Turbid, 500 LE, >50 WBCs, 3+ bacteria -UCx: Klebsiella, Enterobacter and Aerococcus urinae - fisher-sensitive -Wheeler in place -ABx as above; Adequately tx at this point #Anion Gap Metabolic Acidosis 2/2 to Lactic Acidosis, resolved -Due to above -LA: 4.1 > 2.0; A>12; Bicarb: 10 > 16 > 14 #Indeterminate Trop -Likely 2/2 demand ischemia - no active chest pain -EKG: very mild ST depression in V4 and V5, nonspecific ST segment changes in lateral leads noted on previous EKGs. -Trop: 0.029>0.049>0.075>0.103 #HFpEF -Echo (12/20): EF 65-70%, Grade 1/3 diastolic dysfunction -Aware, will avoid fluid overload #Chronic Medical Conditions: HTN - Currently holding antihypertensives due to hypotension HLD - Will continue home medication regimen - (Atorvastatin 40 mg) Hypothyroid - Will continue home medication - (Levothyroxine 112 mcg) Osteoporosis - Will continue home medication-(Weekly Fosamax 70mg) Overactive Bladder - Will continue home medication regimen - (4 mg Tolterodine) Cardiac Arrhythmia - Aware, has pacemaker in place YVAN - Will resume CPAP at night once respiratory function improves History of Giant Cell Arteritis - Aware, s/p steroid taper *Of note, patient has not taken any home medications in weeks due to N/V PCP: [facility]reras Code: DNAR Diet: Tube Feeds Activity: Bed Rest ABx: Meropenem VTE PPx: Heparin 5000u BID GI PPx: Protonix Fluids: LR @ 75 ml/hr Dispo: Patient is currently admitted to the CCU following Ex-Lap for ongoing management of Sepsis 2/2 Bowel Ischemia / Diverticulitis. Patient remains intubated but is no longer requiring BP support. Will continue ABx and monitoring of electrolytes, with recs appreciated from GenSurg and Pulm. Condition remains guarded with poor overall prognosis. Expected LOS > 48H. Addendum - Attending - Attending Attestation Date/Time: 04/12/20 1600 I personally evaluated the patient and discussed the management with Dr. Centeno. I agree with the History, Examination, Assessment and Plan documented above with any addition or exceptions noted below.
[2020-04-12] MEDS: Levothyroxine Sodium 112 MCG TAB PO SCH (06:03)
[2020-04-12] MEDS: Dextrose 5% in Water 1,000 ML IV SCH ×2 (06:09→17:40)
[2020-04-12] MEDS: Heparin 5,000 UNITS/ML VIAL SC SCH ×2 (07:02→21:23)
[2020-04-12] MEDS: Meropenem 1 GM in Sodium Chloride 0.9% 100 ML IVPB SCH ×2 (08:36→21:23)
[2020-04-12] MEDS: methylPREDNISolone Sod Succ 40 MG VIAL IVP SCH (08:36)
[2020-04-12] MEDS: Pantoprazole 40 MG VIAL IVP SCH (08:37)
--- NOTE | 2020-04-12 08:56 | PRG ---
DATE OF SERVICE: 04/12/2020 SUBJECTIVE: Ms. Mao became very tachypneic yesterday afternoon with small tidal volumes and had to be placed back on the rate. OBJECTIVE: VITAL SIGNS: She is afebrile, respiratory rate is now 14, oximetry is 100%, and blood pressure 129/78. LUNGS: Clear. HEART: Regular rhythm. ABDOMEN: Soft. EXTREMITIES: With only trace edema. LABORATORY DATA: Chest x-ray suggestive of bilateral effusions. IMPRESSION: 1. Respiratory failure after a laparotomy. 2. Anemia. 3. Hyperchloremic acidosis. 4. Acute on chronic renal dysfunction. 5. Elevated liver enzymes. We will increase her free water and see if decreasing her chloride will lead to a more normal acid-base situation, which should decrease her work of breathing. She does have significant abdominal obesity and may benefit from a tracheostomy, wean from mechanical ventilation if we do not see any significant improvement here in the next few days. She has been in the hospital now for eight days. Critical care time 30 min. Job ID: [id number] MTDD
--- NOTE | 2020-04-12 09:31 | RAD ---
CHEST 1 VIEW: Date: 04/12/2020 HISTORY: Ventilated patient. COMPARISON: 04/11/2020. FINDINGS: Moderate pleural effusions and compressive atelectasis. Endotracheal tube tip is above the hero, 3. 5 cm. Enteric tube tip below diaphragm, although out of field of view. No pneumothorax. IMPRESSION: Similar examination of the chest. POS: HOME
[2020-04-12] MEDS: Lactated Ringer's 1,000 ML IV SCH (19:07)
--- NOTE | 2020-04-12 21:41 | PRG ---
DATE OF SERVICE: 04/12/2020 SUBJECTIVE: Ms. Allan is a DNR. She has not been able to extubate yet. , respiratory rate 14. LUNGS: Clear to auscultation. CARDIAC: Regular rate and rhythm without murmur or gallop. ABDOMEN: Soft. Scant output in her colostomy. She is on tube feedings and seems to be tolerating them. Residuals are acceptable, 200 to 300. EXTREMITIES: No edema. LABORATORY DATA: White count is 13, hemoglobin 10.1. Sodium 142, , carbon dioxide 13, BUN 33, creatinine 1.57, GFR 31. Urine output 1460. Wound VAC drainage, 200 mL ostomy. ASSESSMENT AND PLAN: The patient is doing well. She is off pressors. She is still slightly acidotic. She remains on the ventilator. Dr. Rivera will continue efforts to wean her. Hopefully, she will not need a tracheostomy or feeding tube. Colostomy appears to be healthy. She seems to be tolerating her tube feedings. Continue tube feeding efforts and supportive care. I would continue antibiotics until there is better GI function until she is off the ventilator and her acidosis resolves. Job ID: [id number]
[2020-04-13] MEDS: Albuterol Sulfate 1.25 MG/3 ML NEB NEB SCH ×6 (03:18→23:37)
[2020-04-13] MEDS ORDERED: Fentanyl CADD 100 ML ONE (03:50)
[2020-04-13] MEDS: Dextrose 5% in Water 1,000 ML IV SCH ×2 (05:30→21:42)
[2020-04-13] MEDS: Levothyroxine Sodium 112 MCG TAB PO SCH (05:35)
[2020-04-13 05:59] LABS: Band 7 % (5-11); Hemoglobin 9.9 g/dL (12.0-16.0); Hypochromia SLIGHT = 6-15 cells (100X) (0-5/hpf); Lymphocytes 7 % (21-51); MDiff Complete? YES; Mean Corpuscular HGB CONC 33.3 g/dL (32.0-36.0); Mean Corpuscular Hemoglobin 28.6 pg (27.0-31.0); Mean Corpuscular Volume 85.8 fL (78.0-98.0); Mean Platelet Volume 9.2 fL (7.4-10.4); Monocytes 12 % (0-10); Neutrophil 73 % (42-75); Nucleated RBC 1 % (0); Platelet Count 123 thou/uL (130-400); Platelet Morphology Comment Appears Adequate; RBC Distribution Width 13.9 % (11.5-14.5); Reactive Lymphocytes 1 % (0-10); Red Blood Cell (RBC) Count 3.46 mill/uL (4.20-5.40); White Blood Cell (WBC) Count 16.8 thou/uL (4.8-10.8)
[2020-04-13 06:05] LABS: ALT (SGPT) 113 U/L (8-55); AST (SGOT) 106 U/L (5-34); Albumin 3.5 g/dL (3.4-4.8); Alkaline Phosphatase 128 U/L (40-110); Anion Gap 16 mmol/L (10-20); BUN (Urea Nitrogen) 35 mg/dL (9.8-20.1); Bilirubin, Total 2.2 mg/dL (0.2-1.2); Calc. Creatinine Clearance 41 mL/min (70-130); Calcium 8.3 mg/dL (7.8-10.44); Carbon Dioxide 17 mmol/L (23-31); Chloride 108 mmol/L (98-107); Globulin 1.2 g/dL (2.4-3.5); Glucose 199 mg/dL (83-110); Protein, Total 4.7 g/dL (6.0-8.3); Sodium 138 mmol/L (136-145)
[2020-04-13 06:10] LABS: Potassium 2.7 mmol/L (3.5-5.1)
[2020-04-13] MEDS ORDERED: Potassium Chloride 40 MEQ in Premix Bag 1 BAG IVPB SCH ×2 (06:45→11:45)
[2020-04-13] MEDS: Heparin 5,000 UNITS/ML VIAL SC SCH (07:08)
[2020-04-13] MEDS ORDERED: Magnesium 2 GM/50 ML 2 GM in Premix Bag 1 BAG IVPB SCH (07:15)
--- NOTE | 2020-04-13 07:52 | RAD ---
XR Chest 1 View Portable History: Ventilated patient Comparison: Radiograph prior to Findings: Large bilateral layering pleural effusions. Heart size is enlarged. Enteric tube tip below diaphragm although out of field of view. The patient wires project over the right atrial appendage and right ventricle. No pneumothorax. Old right humeral neck fracture. Anterior tube tip at the clavicular level. Impression: Similar examination of the chest without improved lung aeration. Relative to the April 04, 2020 examination, the pleural effusions and bibasilar consolidative processes have worsened.
--- NOTE | 2020-04-13 08:30 | PDOC.FM ---
- Subjective Subjective: Patient was laying in bed in restraints at the time of evaluation. Patient's cognition appears to be improving, with the patient able to nod her head "yes" or "no" for simple questions. Per the Resident Night Team, patient had a critical lab value (K: 2.7) and was subsequently started on replacement therapy. - Objective Vital Signs & Weight: Vital Signs (12 hours) Temp Pulse Resp BP Pulse Ox 04/13/20 07:42 100 04/13/20 07:38 89 04/13/20 07:37 94 14 100 04/13/20 07:00 98.0 F 04/13/20 06:00 12 04/13/20 04:00 11 L 04/13/20 03:19 99 122/60 04/13/20 03:18 99 14 100 04/13/20 02:00 11 L 04/13/20 00:00 11 L 04/12/20 22:40 80 91/50 L 04/12/20 22:39 80 11 L 100 04/12/20 22:00 11 L Weight Admit Weight 72.6 kg Weight 85.1 kg Most Recent Monitor Data Heart Rate from ECG 94 NIBP 111/80 NIBP BP-Mean 90 Respiration from ECG 19 SpO2 100 I&O: 04/12/20 04/13/20 04/14/20 06:59 06:59 06:59 Intake Total 2609 3339.4 Output Total 1670 1825 100 Balance 939 1514.4 -100 Result Diagrams: 04/14/20 04:25 04/14/20 04:25 Phys Exam - Physical Examination Constitutional: NAD HEENT: moist MMs, oral pharynx no lesions Moderate scleral icterus Neck: no nodes Respiratory: no wheezing, no rales, no rhonchi, clear to auscultation bilateral Cardiovascular: RRR, no significant murmur, no rub Gastrointestinal: soft, non-tender, no distention, positive bowel sounds Increased bowel sounds with liquid stool noted in ostomy bag Musculoskeletal: pulses present b/l UE edema noted - stable Dx/Plan (1) Diverticulitis Code(s): K57.92 - DVTRCLI OF INTEST, PART UNSP, W/O PERF OR ABSCESS W/O BLEED Status: Acute (2) Septic shock Code(s): A41.9 - SEPSIS, UNSPECIFIED ORGANISM; R65.21 - SEVERE SEPSIS WITH SEPTIC SHOCK Status: Acute (3) UTI (urinary tract infection) Status: Acute (4) HLD (hyperlipidemia) Code(s): E78.5 - HYPERLIPIDEMIA, UNSPECIFIED Status: Chronic (5) HTN (hypertension) Code(s): I10 - ESSENTIAL (PRIMARY) HYPERTENSION Status: Chronic (6) Hypothyroidism Code(s): E03.9 - HYPOTHYROIDISM, UNSPECIFIED Status: Chronic (7) Acute respiratory failure with hypoxia Code(s): J96.01 - ACUTE RESPIRATORY FAILURE WITH HYPOXIA Status: Resolved - Plan Plan: Patient is an 85 y/o female who presented to the hospital for evaluation of ABD pain. #Septic Shock, 2/2 to Bowel Ischemia with concomitant Diverticulitis -CT ABD: Diverticulitis w/o signs of abscess or perforation -s/p 3 L NS, Vanc and Zosyn in ED -Femoral Central Line (L) placed in ED for pressure support with Levophed gtt required to obtain MAP goal of 65 - dc'd on 04/10 -Transitioned ABx from Metronidazole and Cefepime to Meropenem (04/05) -BCx: NGTD -Stool Cx: Pseudomonas -Dr. Dickinson (GenSurg): Consulted on 04/05 s/p Ex-Lap w/ resection of Splenic Flexure, Descending Colon, and Sigmoid Colon and placement of Colostomy - terrie mmended continuation of ABx until patient is successfully extubated -Pulm: Consulted, appreciate recs - currently attempting to wean in next 24-48H now that patient no longer requires BP support -Tube feeds currently running @ 20 ml/hr -Will also continue free water flushes through tube to help stimulate bowels - s/p Albumin followed by Lasix -Will continue D5W @ 75 ml/hr #Mild adrenal insufficiency -AM Cortisol: 10 -s/p stress dose of steroids - will continue Methylprednisolone 40 mg IV daily #JOEL -Cr: 1.91 > 2.05 >>> 1.42 -Urine output appears appropriate - will continue to monitor closely #UTI, resolved -UA: Turbid, 500 LE, >50 WBCs, 3+ bacteria -UCx: Klebsiella, Enterobacter and Aerococcus urinae - fisher-sensitive -Wheeler in place -ABx as above; Adequately tx at this point #Anion Gap Metabolic Acidosis 2/2 to Lactic Acidosis, resolved -Due to above -LA: 4.1 > 2.0 -A > 13 #Indeterminate Trop -Likely 2/2 demand ischemia - no active chest pain -EKG: Very mild ST depression in V4 and V5, nonspecific ST segment changes in lateral leads noted on previous EKGs -Trop: 0.029 > 0.049 > 0.075 > 0.103 #HFpEF -Echo (12/20): EF 65-70%, Grade 1/3 diastolic dysfunction -Aware, will avoid fluid overload #Chronic Medical Conditions: HTN - Currently holding antihypertensives due to hypotension HLD - Will continue home medication regimen - (Atorvastatin 40 mg) Hypothyroid - Will continue home medication - (Levothyroxine 112 mcg) Osteoporosis - Will continue home medication - (Weekly Fosamax 70mg) Overactive Bladder - Currently holding home medication regimen - (4 mg Tolterodine) Cardiac Arrhythmia - Aware, has pacemaker in place YVAN - Will resume CPAP at night once respiratory function improves History of Giant Cell Arteritis - Aware, s/p steroid taper *Of note, patient has not taken any home medications in weeks due to N/V PCP: Contreras Code: DNAR Diet: Tube Feeds Activity: Bed Rest ABx: Meropenem VTE PPx: Lovenox 40 mg SC GI PPx: Protonix Fluids: LR @ 75 ml/hr Dispo: Patient is currently admitted to the CCU following Ex-Lap for ongoing management of Sepsis 2/2 Bowel Ischemia / Diverticulitis. Patient remains intubated but is no longer requiring BP support. Will continue ABx and monitoring of electrolytes, with recs appreciated from GenSurg and Pulm. Conditi on remains guarded with poor overall prognosis. Expected LOS > 48H. Addendum - Attending - Attending Attestation Date/Time: 04/14/20 3270 I personally evaluated the patient and discussed the management with Dr. Centeno yesterday. I agree with the History, Examination, Assessment and Plan documented above with any addition or exceptions noted below.
[2020-04-13] MEDS: Pantoprazole 40 MG VIAL IVP SCH (09:52)
[2020-04-13] MEDS: MEROPENEM 1 GM/50 ML 1 GM in Premix Bag 1 BAG IVPB SCH ×2 (09:53→21:42)
[2020-04-13] MEDS: methylPREDNISolone Sod Succ 40 MG VIAL IVP SCH (09:53)
[2020-04-13] MEDS ORDERED: Potassium Chloride 40 MEQ in Sodium Chloride 0.9% 250 ML 250 ML IVPB ONE (10:47)
[2020-04-13] MEDS ORDERED: Potassium Chloride 40 MEQ in Sodium Chloride 0.9% 250 ML 250 ML IVPB SCH (11:00)
[2020-04-13 15:29] LABS: Anion Gap 16 mmol/L (10-20); BUN (Urea Nitrogen) 35 mg/dL (9.8-20.1); Calc. Creatinine Clearance 43 mL/min (70-130); Carbon Dioxide 15 mmol/L (23-31); Chloride 109 mmol/L (98-107); Glucose 211 mg/dL (83-110); Potassium 3.8 mmol/L (3.5-5.1); Sodium 136 mmol/L (136-145)
--- NOTE | 2020-04-13 16:38 | PRG ---
DATE OF SERVICE: 04/13/2020 SUBJECTIVE: Juana Mao remains on mechanical ventilation. Her admitting weight reported is 160. She weighs 187. According to the weight, she has been as high is 201, but I doubt these weights are accurate. OBJECTIVE: VITAL SIGNS: Heart rate is 92, blood pressure 108/63, respiratory rate is 12. LUNGS: Remarkable for clear anteriorly. HEART: Regular rate and rhythm. ABDOMEN: Soft. EXTREMITIES: Without asymmetry. All 4 extremities are edematous. LABORATORY DATA: White count 16.8, hemoglobin 9.9, platelets 123. Electrolytes are unremarkable. Sodium 136, potassium 3.8, chloride 109, bicarb 15, BUN 35, creatinine 1.32, glucose 211. IMPRESSION: 1. Respiratory failure. 2. Status post aggressive volume resuscitation after clinical sepsis, presenting with peritonitis. 3. Volume overload. 4. Bilateral pleural effusions. They are in part reactive and related to volume overload. PLAN: She is currently not weanable. She is now 9 days into this hospitalization and for now being until family would not want her to have a tracheostomy. Intake and output coming in today was positive 1514. Unless we can get some volume off her, she will wean from mechanical ventilation. She failed to spontaneous breathing trial over the weekend. Critical care time 30 min. Job ID: [id number] MTDD
[2020-04-13] MEDS ORDERED: Metoclopramide HCl 10 MG/2 ML VIAL IVP PRN (17:52)
--- NOTE | 2020-04-13 18:36 | PRG ---
DATE OF SERVICE: SUBJECTIVE: Juana Mao is still on the ventilator. She has tube feedings at 20 mL per hours. She had residuals of 700 last night that were aspirated, discarded. Residuals thus far had been 100 mL, tube feedings continue at 20 mL per hour. The patient has not been able to wean from the vent. She is too weak heart rate. Family does not want a tracheostomy or feeding tube. She is a DNR. OBJECTIVE: LUNGS: Clear to auscultation. No wheezing. CARDIAC: Regular rate and rhythm. ABDOMEN: Soft. Midline incision looks good. Colostomy is healthy with scant stool and flatus in the bag. EXTREMITIES: Edematous. LABORATORY DATA: White count 16, hemoglobin 9. Basic metabolic profile; sodium 136, potassium 3.8, BUN and creatinine 135 and 1.33. ASSESSMENT AND PLAN: 1. Acute renal failure, improved. 2. Respiratory failure. Continue ventilator, not able to be wean. 3. Sepsis, improving, though not resolved. Continue intravenous antibiotics. 4. Malnutrition. She has tube feedings and if she does not tolerate these better tonight, we will have to probably consider TPN she does tolerate tube feedings, continue efforts. Overall, prognosis is guarded to poor. Job ID: [id number]
[2020-04-14] MEDS: Albuterol Sulfate 1.25 MG/3 ML NEB NEB SCH ×6 (02:36→23:04)
[2020-04-14 05:43] LABS: ALT (SGPT) 92 U/L (8-55); AST (SGOT) 75 U/L (5-34); Albumin 3.3 g/dL (3.4-4.8); Alkaline Phosphatase 118 U/L (40-110); Anion Gap 13 mmol/L (10-20); BUN (Urea Nitrogen) 36 mg/dL (9.8-20.1); Bilirubin, Total 2.1 mg/dL (0.2-1.2); Calc. Creatinine Clearance 49 mL/min (70-130); Carbon Dioxide 19 mmol/L (23-31); Chloride 105 mmol/L (98-107); Globulin 1.3 g/dL (2.4-3.5); Glucose 210 mg/dL (83-110); Protein, Total 4.6 g/dL (6.0-8.3); Sodium 134 mmol/L (136-145)
[2020-04-14 05:49] LABS: Band 7 % (5-11); Hemoglobin 10.6 g/dL (12.0-16.0); Hypochromia SLIGHT = 6-15 cells (100X) (0-5/hpf); Lymphocytes 4 % (21-51); MDiff Complete? YES; Mean Corpuscular HGB CONC 33.1 g/dL (32.0-36.0); Mean Corpuscular Hemoglobin 28.4 pg (27.0-31.0); Mean Corpuscular Volume 85.8 fL (78.0-98.0); Mean Platelet Volume 8.7 fL (7.4-10.4); Monocytes 17 % (0-10); Neutrophil 72 % (42-75); Nucleated RBC 1 % (0); Platelet Count 158 thou/uL (130-400); Platelet Morphology Comment Appears Adequate; Red Blood Cell (RBC) Count 3.72 mill/uL (4.20-5.40); White Blood Cell (WBC) Count 22.7 thou/uL (4.8-10.8)
[2020-04-14] MEDS: Levothyroxine Sodium 112 MCG TAB PO SCH (06:12)
[2020-04-14] MEDS ORDERED: Potassium Chloride 40 MEQ in Premix Bag 1 BAG IVPB SCH (06:30)
--- NOTE | 2020-04-14 07:59 | PDOC.FM ---
- Subjective Subjective: Patient was laying in bed, intubated at the time of evaluation. Patient's mental cognition continues to improve, and the patient appears more alert than on previous evaluation. No acute overnight events were reported by the Resident Night Team or Nursing Staff. - Objective Vital Signs & Weight: Vital Signs (12 hours) Pulse Resp Pulse Ox 04/14/20 07:30 86 12 100 04/14/20 06:00 11 L 04/14/20 04:00 20 04/14/20 02:36 91 12 100 04/14/20 02:00 20 04/14/20 00:00 18 04/13/20 23:37 86 11 L 100 04/13/20 23:11 86 04/13/20 22:00 14 Weight Admit Weight 72.6 kg Weight 81.3 kg Most Recent Monitor Data Heart Rate from ECG 85 NIBP 107/55 NIBP BP-Mean 72 Respiration from ECG 14 SpO2 100 I&O: 04/13/20 04/14/20 04/15/20 06:59 06:59 06:59 Intake Total 3339.4 2735.7 Output Total 1855 2300 Balance 1484.4 435.7 Result Diagrams: 04/14/20 04:25 04/14/20 04:25 Phys Exam - Physical Examination Constitutional: NAD Mild scleral icterus Neck: no nodes, supple Course breath sounds Cardiovascular: RRR, no significant murmur, no rub Gastrointestinal: soft, non-tender, no distention Minimal bowel sounds with liquid green stool in ostomy bag Musculoskeletal: pulses present b/l UE Edema Deviation from normal: Flattened affect - appropriate Dx/Plan (1) Diverticulitis Code(s): K57.92 - DVTRCLI OF INTEST, PART UNSP, W/O PERF OR ABSCESS W/O BLEED Status: Acute (2) Septic shock Code(s): A41.9 - SEPSIS, UNSPECIFIED ORGANISM; R65.21 - SEVERE SEPSIS WITH SEPTIC SHOCK Status: Acute (3) UTI (urinary tract infection) Status: Acute (4) HLD (hyperlipidemia) Code(s): E78.5 - HYPERLIPIDEMIA, UNSPECIFIED Status: Chronic (5) HTN (hypertension) Code(s): I10 - ESSENTIAL (PRIMARY) HYPERTENSION Status: Chronic (6) Hypothyroidism Code(s): E03.9 - HYPOTHYROIDISM, UNSPECIFIED Status: Chronic (7) Acute respiratory failure with hypoxia Code(s): J96.01 - ACUTE RESPIRATORY FAILURE WITH HYPOXIA Status: Acute - Plan Plan: Patient is an 85 y/o female who presented to the hospital for evaluation of ABD pain. #Septic Shock, 2/2 to Bowel Ischemia with concomitant Diverticulitis -CT ABD: Diverticulitis w/o signs of abscess or perforation -s/p 3 L NS, Vanc and Zosyn in ED -Femoral Central Line (L) placed in ED for pressure support with Levophed gtt required to obtain MAP goal of 65 - dc'd on 04/10 -Transitioned ABx from Metronidazole and Cefepime to Meropenem (04/05) -BCx: NGTD -Stool Cx: Pseudomonas -Dr. Dickinson (GenSurg): Consulted on 04/05 s/p Ex-Lap w/ resection of Splenic Flexure, Descending Colon, and Sigmoid Colon and placement of Colostomy - recommended continuation of ABx until patient is successfully extubated and bowel function improves -Pulm: Consulted, recs appreciated - currently attempting to wean in next 24-48H now that patient no longer requires BP support -Tube feeds currently running @ 20 ml/hr -Will also continue free water flushes through tube to help stimulate bowels - s/p Albumin followed by Lasix -Will continue D5W @ 75 ml/hr - will place orders for SSI and Accuchecks as patient's Glucose is elevated #Mild adrenal insufficiency -AM Cortisol: 10 -s/p stress dose of steroids - will continue Methylprednisolone 40 mg IV daily #JOEL -Cr: 1.91 > 2.05 >>> 1.42 -Urine output appears appropriate - will continue to monitor closely #UTI, resolved -UA: Turbid, 500 LE, >50 WBCs, 3+ bacteria -UCx: Klebsiella, Enterobacter and Aerococcus urinae - fisher-sensitive -Wheeler in place -ABx as above; Adequately tx at this point #Anion Gap Metabolic Acidosis 2/2 to Lactic Acidosis, resolved -Due to above -LA: 4.1 > 2.0 -A > 13 #Indeterminate Trop -Likely 2/2 demand ischemia - no active chest pain -EKG: Very mild ST depression in V4 and V5, nonspecific ST segment changes in lateral leads noted on previous EKGs -Trop: 0.029 > 0.049 > 0.075 > 0.103 #HFpEF -Echo (12/20): EF 65-70%, Grade 1/3 diastolic dysfunction -Aware, will avoid fluid overload #Chronic Medical Conditions: HTN - Currently holding antihypertensives due to hypotension HLD - Will continue home medication regimen - (Atorvastatin 40 mg) Hypothyroid - Will continue home medication - (Levothyroxine 112 mcg) Osteoporosis - Will continue home medication - (Weekly Fosamax 70mg) Overactive Bladder - Currently holding home medication regimen - (4 mg Tolterodine) Cardiac Arrhythmia - Aware, has pacemaker in place YVAN - Will resume CPAP at night once respiratory function improves History of Giant Cell Arteritis - Aware, s/p steroid taper *Of note, patient has not taken any home medications in weeks due to N/V PCP: Contreras Code: DNAR Diet: Tube Feeds Activity: Bed Rest ABx: Meropenem VTE PPx: Lovenox 40 mg SC GI PPx: Protonix Fluids: LR @ 75 ml/hr Dispo: Patient is currently admitted to the CCU following Ex-Lap for ongoing management of Sepsis 2/2 Bowel Ischemia / Diverticulitis. Patient remains intubated but is no longer requiring BP support. Will continue ABx and monitoring of electrolytes, with recs appreciated from GenSurg and Pulm. Condition remains guarded with poor overall prognosis. Expected LOS > 48H. Addendum - Attending - Attending Attestation Date/Time: 04/14/20 6573 I personally evaluated the patient and discussed the management with Dr. Centeno. I agree with the History, Examination, Assessment and Plan documented above with any addition or exceptions noted below.
[2020-04-14] MEDS ORDERED: HumaLOG 300 UNITS/3 ML VIAL SC PRN (08:02)
[2020-04-14] MEDS ORDERED: Dextrose 50% Abboject 50 ML SYRINGE SLOW IVP PRN (08:02)
[2020-04-14] MEDS: Enoxaparin Sodium 40 MG/0.4 ML SYRINGE SC SCH (08:15)
[2020-04-14] MEDS: methylPREDNISolone Sod Succ 40 MG VIAL IVP SCH (08:19)
[2020-04-14] MEDS: Pantoprazole 40 MG VIAL IVP SCH (08:19)
[2020-04-14] MEDS: MEROPENEM 1 GM/50 ML 1 GM in Premix Bag 1 BAG IVPB SCH ×2 (08:20→21:49)
[2020-04-14] MEDS ORDERED: Fentanyl CADD 100 ML ONE (13:49)
[2020-04-14] MEDS: Sodium Chloride 0.45% 1,000 ML IV SCH (14:23)
[2020-04-14] MEDS: Dextrose 5% in Water 1,000 ML IV SCH (14:24)
[2020-04-14 15:50] LABS: Anion Gap 15 mmol/L (10-20); Calc. Creatinine Clearance 45 mL/min (70-130); Calcium 7.7 mg/dL (7.8-10.44); Carbon Dioxide 16 mmol/L (23-31); Chloride 106 mmol/L (98-107); Potassium 3.7 mmol/L (3.5-5.1); Sodium 133 mmol/L (136-145)
[2020-04-14 16:28] LABS: Glucose 199 mg/dL (83-110)
[2020-04-14 16:33] LABS: BUN (Urea Nitrogen) 29 mg/dL (9.8-20.1)
--- NOTE | 2020-04-14 22:47 | PRG ---
DATE OF SERVICE: 04/14/2020 SUBJECTIVE: Ms. Mao is in no distress. She appears comfortable. Her rate on the ventilator was turned down to 6 today. In contrast, the last time we tried this, she tolerated this well. OBJECTIVE: VITAL SIGNS: Heart rate is 95, blood pressure 123/77, FiO2 is at 30%. Intake and output positive, 435. LUNGS: Remarkable for equal breath sounds. HEART: Regular rhythm. ABDOMEN: Soft. EXTREMITIES: Without asymmetry. Based on intake and output, she could not have lost 8 pounds, but her weights say that she did. Admitting weight was reportedly 160. The next day, 176, this may be given the volume resuscitation that she had. I would consider her baseline weight, probably somewhere between 160 to 170 now. We will continue to slowly decrease ventilatory support. Hopefully, she is getting close to a point where we can try to awaken her and extubate her. Job ID: [id number]
[2020-04-15] MEDS: Sodium Chloride 0.45% 1,000 ML IV SCH ×2 (02:20→14:39)
[2020-04-15] MEDS: Albuterol Sulfate 1.25 MG/3 ML NEB NEB SCH ×4 (02:34→16:02)
[2020-04-15 04:54] LABS: ALT (SGPT) 74 U/L (8-55); AST (SGOT) 69 U/L (5-34); Albumin 3.2 g/dL (3.4-4.8); Alkaline Phosphatase 115 U/L (40-110); Anion Gap 16 mmol/L (10-20); BUN (Urea Nitrogen) 31 mg/dL (9.8-20.1); Bilirubin, Total 2.1 mg/dL (0.2-1.2); Calc. Creatinine Clearance 53 mL/min (70-130); Calcium 7.6 mg/dL (7.8-10.44); Carbon Dioxide 18 mmol/L (23-31); Chloride 103 mmol/L (98-107); Globulin 1.4 g/dL (2.4-3.5); Glucose 188 mg/dL (83-110); Potassium 3.2 mmol/L (3.5-5.1); Protein, Total 4.6 g/dL (6.0-8.3); Sodium 134 mmol/L (136-145)
[2020-04-15 05:09] LABS: Hypochromia SLIGHT = 6-15 cells (100X) (0-5/hpf); Lymphocytes 10 % (21-51); MDiff Complete? YES; Mean Corpuscular HGB CONC 33.7 g/dL (32.0-36.0); Mean Corpuscular Hemoglobin 28.9 pg (27.0-31.0); Mean Corpuscular Volume 85.7 fL (78.0-98.0); Mean Platelet Volume 8.2 fL (7.4-10.4); Monocytes 17 % (0-10); Neutrophil 73 % (42-75); Platelet Count 177 thou/uL (130-400); Platelet Morphology Comment Appears Adequate; RBC Distribution Width 14.2 % (11.5-14.5); Red Blood Cell (RBC) Count 3.83 mill/uL (4.20-5.40); White Blood Cell (WBC) Count 24.9 thou/uL (4.8-10.8)
[2020-04-15] MEDS ORDERED: Potassium Chloride 40 MEQ in Premix Bag 1 BAG IVPB SCH (05:45)
[2020-04-15] MEDS ORDERED: Potassium Chloride 20 MEQ TAB PO SCH (05:45)
[2020-04-15] MEDS: Levothyroxine Sodium 112 MCG TAB PO SCH (06:25)
--- NOTE | 2020-04-15 06:38 | PRG ---
DATE OF SERVICE: 04/14/2020 SUBJECTIVE: Ms. Mao remains on the ventilator. She is sedated. Heart rate 89-90, 128/97. Tube feedings continue with residuals just over 200. OBJECTIVE: LUNGS: Clear to auscultation. CARDIAC: Rhythm without murmur or gallop. ABDOMEN: Soft. Colostomy healthy. EXTREMITIES: Edema. Wheeler 2180 for 24 hours without diuretics. She is a DNR. LABORATORY DATA: White count is 22,000, hemoglobin 10.6. Sodium 134, potassium 3.0, carbon dioxide 19, BUN 36, creatinine 1.16, GFR 45, bilirubin 2.1. ASSESSMENT: 1. Sepsis. Continue antibiotics. Hemodynamics, she is better. Her white count did improve greatly, but is now up to 22,000 without a significant differential. Continue IV antibiotics. Monitor. 2. Respiratory failure, ventilator, not weanable, although does open her eyes and nods appropriately. Indicates that she is not having any abdominal pain. 3. Malnutrition. Continue tube feedings. Job ID: [id number]
[2020-04-15] MEDS: Pantoprazole 40 MG VIAL IVP SCH (07:40)
[2020-04-15] MEDS: Enoxaparin Sodium 40 MG/0.4 ML SYRINGE SC SCH (07:40)
[2020-04-15] MEDS: methylPREDNISolone Sod Succ 40 MG VIAL IVP SCH (07:41)
--- NOTE | 2020-04-15 08:06 | PDOC.FM ---
- Subjective Subjective: Patient was intubated and in restraints at the time of evaluation. Patient's mental status appears to be somewhat diminished in comparison to yesterday, as patient did not respond to simple questions and commands. No acute overnight events were reported by the Resident Night Team or Nursing Staff. - Objective Vital Signs & Weight: Vital Signs (12 hours) Temp Pulse Resp BP Pulse Ox 04/15/20 07:25 12 99 04/15/20 07:00 98.7 F 04/15/20 06:00 6 L 04/15/20 04:00 6 L 04/15/20 02:34 93 14 100 04/15/20 02:30 95 113/65 04/15/20 02:00 9 L 04/15/20 00:00 96.7 F L 9 L 04/14/20 23:06 95 114/68 04/14/20 23:04 96 11 L 100 04/14/20 22:00 7 L 04/14/20 20:03 95 123/77 Weight Admit Weight 72.6 kg Weight 82.7 kg Most Recent Monitor Data Heart Rate from ECG 86 NIBP 99/49 NIBP BP-Mean 65 Respiration from ECG 14 SpO2 100 I&O: 04/14/20 04/15/20 04/16/20 06:59 06:59 06:59 Intake Total 2735.7 2524 Output Total 2300 2930 470 Balance 435.7 -406 -470 Result Diagrams: 04/15/20 04:00 04/15/20 04:00 Phys Exam - Physical Examination Constitutional: NAD HEENT: moist MMs Neck: supple Respiratory: no wheezing, no rales, no rhonchi Cardiovascular: RRR, no significant murmur, no rub Gastrointestinal: soft, non-tender, no distention Minimal bowel sounds, possible blood noted in ostomy bag Musculoskeletal: pulses present b/l UE edema Deviation from normal: A&Ox0 Dx/Plan (1) Diverticulitis Code(s): K57.92 - DVTRCLI OF INTEST, PART UNSP, W/O PERF OR ABSCESS W/O BLEED Status: Acute (2) Septic shock Code(s): A41.9 - SEPSIS, UNSPECIFIED ORGANISM; R65.21 - SEVERE SEPSIS WITH SEPTIC SHOCK Status: Acute (3) UTI (urinary tract infection) Status: Acute (4) HLD (hyperlipidemia) Code(s): E78.5 - HYPERLIPIDEMIA, UNSPECIFIED Status: Chronic (5) HTN (hypertension) Code(s): I10 - ESSENTIAL (PRIMARY) HYPERTENSION Status: Chronic (6) Hypothyroidism Code(s): E03.9 - HYPOTHYROIDISM, UNSPECIFIED Status: Chronic (7) Acute respiratory failure with hypoxia Code(s): J96.01 - ACUTE RESPIRATORY FAILURE WITH HYPOXIA Status: Acute - Plan Plan: Patient is an 85 y/o female who presented to the hospital for evaluation of ABD pain. #Septic Shock, 2/2 to Bowel Ischemia with concomitant Diverticulitis -CT ABD: Diverticulitis w/o signs of abscess or perforation -s/p 3 L NS, Vanc and Zosyn in ED -Femoral Central Line (L) placed in ED for pressure support with Levophed gtt required to obtain MAP goal of 65 - dc'd on 04/10 -Transitioned ABx from Metronidazole and Cefepime to Meropenem (04/05) -BCx: NGTD -Stool Cx: Pseudomonas -Dr. Dickinson (GenSurg): Consulted on 04/05 s/p Ex-Lap w/ resection of Splenic Flexure, Descending Colon, and Sigmoid Colon and placement of Colostomy - recommended continuation of ABx until patient is successfully extubated and bowel function improves -Possible blood noted in ostomy bag with H&H at baseline and no significant changes in Physical Exam - will notify Genrg accordingly -Pulm: Consulted, recs appreciated - currently attempting to wean now that p atient no longer requires BP support -Tube feeds currently running @ 20 ml/hr -Will also continue free water flushes through tube to help stimulate bowels - s/p Albumin followed by Lasix -Will continue D5W @ 75 ml/hr with SSI and Accuchecks for hyperglycemia -WBCs: Persistently elevated despite Meropenem - no acute signs of concurrent infection based on temperatures, daily CXRs and stable Physical Exam - will continue to monitor #Mild adrenal insufficiency -AM Cortisol: 10 -s/p stress dose of steroids - will continue Methylprednisolone 40 mg IV daily #JOEL -Cr: 1.91 > 2.05 >>> 1.03 -Urine output appears appropriate - will continue to monitor closely #UTI, resolved -UA: Turbid, 500 LE, >50 WBCs, 3+ bacteria -UCx: Klebsiella, Enterobacter and Aerococcus urinae - fisher-sensitive -Wheeler in place -ABx as above - adequately treated at this point #Anion Gap Metabolic Acidosis 2/2 to Lactic Acidosis, resolved -Due to above -LA: 4.1 > 2.0 -A > 13 #Indeterminate Trop -Likely 2/2 demand ischemia - no active chest pain -EKG: Very mild ST depression in V4 and V5, nonspecific ST segment changes in lateral leads noted on previous EKGs -Trop: 0.029 > 0.049 > 0.075 > 0.103 #HFpEF -Echo (12/20): EF 65-70%, Grade 1/3 diastolic dysfunction -Aware, will avoid fluid overload #Chronic Medical Conditions: HTN - BPs stable with no need for pressure support at this time HLD - Will continue home medication regimen - (Atorvastatin 40 mg) Hypothyroid - Will continue home medication - (Levothyroxine 112 mcg) Osteoporosis - Will continue home medication - (Weekly Fosamax 70mg) Overactive Bladder - Currently holding home medication regimen - (4 mg Tolterodine) Cardiac Arrhythmia - Aware, has pacemaker in place YVAN - Will resume CPAP at night once respiratory function improves History of Giant Cell Arteritis - Aware, s/p steroid taper *Of note, patient has not taken any home medications in weeks due to N/V PCP: Contreras Code: DNAR Diet: Tube Feeds Activity: Bed Rest ABx: Meropenem VTE PPx: Lovenox 40 mg SC GI PPx: Protonix Fluids: LR @ 75 ml/hr Dispo: Patient is currently admitted to the CCU following Ex-Lap for ongoing management of Sepsis 2/2 Bowel Ischemia / Diverticulitis. Patient remains intubated but is no longer requiring BP support. Will continue ABx and monitoring of electrolytes, with recs appreciated from GenSurg and Pulm. Will discuss change in patient's ostomy output today with GenSurg. Condition remains guarded with poor overall prognosis. Expected LOS > 48H. Addendum - Attending - Attending Attestation Date/Time: 04/15/20 9413 I personally evaluated the patient and discussed the management with Dr. Maggie varghese. I agree with the History, Examination, Assessment and Plan documented above with any addition or exceptions noted below.
[2020-04-15] MEDS: MEROPENEM 1 GM/50 ML 1 GM in Premix Bag 1 BAG IVPB SCH (08:30)
[2020-04-15] MEDS ORDERED: Fentanyl CADD 100 ML IV SCH (12:15)
[2020-04-15] MEDS ORDERED: Furosemide 100 MG/10 ML VIAL SLOW IVP SCH (12:45)
--- NOTE | 2020-04-15 14:00 | PDOC.FMACP ---
Advance Care Planning - Problem (1) Palliative care encounter Status: Acute Code(s): Z51.5 - ENCOUNTER FOR PALLIATIVE CARE (2) Diverticulitis Status: Acute Code(s): K57.92 - DVTRCLI OF INTEST, PART UNSP, W/O PERF OR ABSCESS W/O BLEED (3) Septic shock Status: Acute Code(s): A41.9 - SEPSIS, UNSPECIFIED ORGANISM; R65.21 - SEVERE SEPSIS WITH SEPTIC SHOCK (4) UTI (urinary tract infection) Status: Acute (5) Acute respiratory failure with hypoxia Status: Acute Code(s): J96.01 - ACUTE RESPIRATORY FAILURE WITH HYPOXIA - Note Participants: family, surrogate decision-maker, palliative care Summary: Palliative care revisited Advanced Care Planning with Bernabe. The diagnosis, prognosis and goals of care were discussed. Appropriate forms and documentation to accomplish the goals of care were discussed. All questions were answered. *Confirmed DNAR *Requesting to transition to hospice to seek comfort verses aggressive measures through hospice *[facility] referral sent via CM *Please refer to Sancho Bai RN notes note section *Supportive call *Attending and consult physicians aware Goal of care with transition to Hospice. Palliative Care will sign off as Goals addressed and patient to transition to [facility] for continued comfort care through hospice. Thank you for this very appropriate consult. Time Spent (mins): 15
[2020-04-15] MEDS ORDERED: Morphine 4 MG/ML VIAL SLOW IVP PRN ×2 (14:55→14:56)
[2020-04-15] MEDS ORDERED: Morphine 2 MG/ML VIAL SLOW IVP PRN (14:56)
--- NOTE | 2020-04-15 16:11 | PDOC.BPN ---
- Brief Progress Note Encounter Date: 04/15/20 Encounter Time: 16:00 Evaluated patient at bedside following discussions with patient's brother (MPOA). Per Nursing Staff, patient's brother elected to pursue palliative measures only as patient's overall prognosis was extremely poor, with demise appearing inevitable. Patient was extubated at the time of arrival and was slowly being transitioned to nasal cannula, with all medications dc'd with the exception of Morphine PRN for pain/agitation/SOB. Discussions with Hospice appear to be ongoing between the patient's brother and Hospice. Will coordinate as needed.
--- NOTE | 2020-04-15 18:40 | PRG ---
DATE OF SERVICE: 04/15/2020 SUBJECTIVE: Juana Mao was evaluated this morning. She is on minimal ventilatory support. I felt she was a candidate for extubation. This has been done this afternoon. OBJECTIVE: VITAL SIGNS: Heart rates in 80s, blood pressure is 117/62, respiratory rate is 18, oximetry is 100%. LUNGS: Clear anteriorly. HEART: Regular rhythm. ABDOMEN: Soft. LABORATORY DATA: White count 24.9, hemoglobin 11.0, platelets 177. Sodium 134, potassium 3.2, chloride 103, bicarb 18, BUN 31, creatinine 1.03. IMPRESSION: 1. Respiratory failure postoperatively after laparotomy. 2. Bilateral pleural effusions that are reactive. 3. Deconditioning with advanced age. She has done well post extubation. Still unclear whether or not she will survive. She is so weak, I am not sure if she can recover to become functional again. She has been moved to the surgical floor. Routine lab will be stopped. Job ID: [id number]
--- NOTE | 2020-04-15 19:59 | PRG ---
DATE OF SERVICE: 04/15/2020 SUBJECTIVE: Ms. Mao has weaned down to FIMV of [address] Rivera believes that she is ready to extubate. She is a DNR. Discussions have been held with [facility] regarding hospice care. They are in favor of that. They would desire extubation. It is Dr. Rivera's opinion that patient will probably do well after extubation, but long-term we all agree that she has a poor prognosis due to her weakness, deconditioning. Family is making decision regarding hospice and once that is decided, she can be extubated. OBJECTIVE: VITAL SIGNS: Heart rate 86, blood pressure 117/63. LUNGS: Clear to auscultation. Rhonchi at base. CARDIAC: Regular rate and rhythm. ABDOMEN: Soft. LABORATORY DATA: White count 24,000, hemoglobin 11. Sodium 134, potassium 3.2, BUN 31, creatinine 1.03. Patient is on tube feedings. Colostomy output is acceptable. Urine output 1850. ASSESSMENT/PLAN: 1. Acute kidney injury, acute renal failure, improving. Good urine output. 2. Poor tolerance of tube feedings. Continue efforts. 3. Respiratory failure. Expect ventilatory extubation later tonight or tomorrow. 4. DNR status. 5. Hospice pending. Overall prognosis is poor. Job ID: [id number]
--- NOTE | 2020-04-16 06:24 | PDOC.FM ---
- Subjective Subjective: Patient was resting comfortably at the time of evaluation. Patient was A&Ox3, but was still very much confused as to her overall hospital course and long-term plan of care. No acute overnight events were reported by the Resident Night Team or Nursing Staff. - Objective Vital Signs & Weight: Vital Signs (12 hours) Temp Pulse Resp BP BP Pulse Ox 04/16/20 05:00 97.5 F L 90 16 139/79 95 04/16/20 01:05 95 04/15/20 23:21 97.7 F 80 16 133/75 95 04/15/20 20:30 95.3 F L 93 14 122/72 94 L 04/15/20 18:31 100 Weight Admit Weight 72.6 kg Weight 82.7 kg Most Recent Monitor Data Heart Rate from ECG 86 NIBP 117/63 NIBP BP-Mean 81 Respiration from ECG 18 SpO2 100 I&O: 04/14/20 04/15/20 04/16/20 06:59 06:59 06:59 Intake Total 2735.7 2524 2299 Output Total 2300 2930 5105 Balance 435.7 -406 2808 Result Diagrams: 04/15/20 04:00 04/15/20 04:00 Phys Exam - Physical Examination Constitutional: NAD HEENT: moist MMs Neck: supple Respiratory: no wheezing, no rales, no rhonchi, clear to auscultation bilateral Cardiovascular: RRR, no significant murmur, no rub Gastrointestinal: soft, non-tender, no distention, positive bowel sounds Ostomy bag in place - minimal liquid stool output Persistent edema of b/l UEs Psychiatric: A&O x 3 Deviation from normal: Overall confused withr egard to current clinical status Dx/Plan (1) Diverticulitis Code(s): K57.92 - DVTRCLI OF INTEST, PART UNSP, W/O PERF OR ABSCESS W/O BLEED Status: Acute (2) Septic shock Code(s): A41.9 - SEPSIS, UNSPECIFIED ORGANISM; R65.21 - SEVERE SEPSIS WITH SEPTIC SHOCK Status: Acute (3) UTI (urinary tract infection) Status: Acute (4) HLD (hyperlipidemia) Code(s): E78.5 - HYPERLIPIDEMIA, UNSPECIFIED Status: Chronic (5) HTN (hypertension) Code(s): I10 - ESSENTIAL (PRIMARY) HYPERTENSION Status: Chronic (6) Hypothyroidism Code(s): E03.9 - HYPOTHYROIDISM, UNSPECIFIED Status: Chronic (7) Acute respiratory failure with hypoxia Code(s): J96.01 - ACUTE RESPIRATORY FAILURE WITH HYPOXIA Status: Acute - Plan Plan: Patient is an 85 y/o female who presented to the hospital for evaluation of ABD pain. #Septic Shock, 2/2 to Bowel Ischemia with concomitant Diverticulitis, resolved -CT ABD: Diverticulitis w/o signs of abscess or perforation -s/p 3 L NS, Vanc and Zosyn in ED -Femoral Central Line (L) placed in ED for pressure support with Levophed gtt required to obtain MAP goal of 65 - dc'd on 04/10 -Transitioned ABx from Metronidazole and Cefepime to Meropenem (04/05) - dc'd on 04/15 following extubation -BCx: NGTD -Stool Cx: Pseudomonas -Dr. Dickinson (GenSurg): Consulted on 04/05 s/p Ex-Lap w/ resection of Splenic Flexure, Descending Colon, and Sigmoid Colon and placement of Colostomy - recommended continuation of ABx until patient is successfully extubated and bowel function improves -Possible blood noted in ostomy bag with H&H at baseline and no significant changes in Physical Exam - GenSurg notified accordingly -Pulm: Consulted, recs appreciated - successfully extubated patient on 04/15 -Tube feeds @ 20 ml/hr -Will also continue free water flushes through tube to help stimulate bowels -WBCs: Persistently elevated despite Meropenem - no acute signs of concurrent infection based on temperatures, daily CXRs and stable Physical Exam - will continue to monitor now that patient is off ABx #Mild adrenal insufficiency -AM Cortisol: 10 -s/p stress dose of steroids and daily Methylprednisolone 40 mg IV daily - currently held #JOEL, resolved -Cr: 1.91 > 2.05 >>> 1.03 -Urine output appears appropriate - will continue to monitor closely #UTI, resolved -UA: Turbid, 500 LE, >50 WBCs, 3+ bacteria -UCx: Klebsiella, Enterobacter and Aerococcus urinae - fisher-sensitive -Wheeler in place -ABx as above - adequately treated at this point #Anion Gap Metabolic Acidosis 2/2 to Lactic Acidosis, resolved -Due to above -LA: 4.1 > 2.0 -A > 13 #Indeterminate Trop -Likely 2/2 demand ischemia - no active chest pain -EKG: Very mild ST depression in V4 and V5, nonspecific ST segment changes in lateral leads noted on previous EKGs -Trop: 0.029 > 0.049 > 0.075 > 0.103 #HFpEF -Echo (12/20): EF 65-70%, Grade 1/3 diastolic dysfunction -Aware, will avoid fluid overload #Chronic Medical Conditions: HTN - BPs stable with no need for pressure support at this time HLD - Currently holding home medication regimen - (Atorvastatin 40 mg) Hypothyroid - Currently holding home medication regimen - (Levothyroxine 112 mcg) Osteoporosis - Currently holding home medication regimen - (Weekly Fosamax 70mg) Overactive Bladder - Currently holding home medication regimen - (4 mg Tolterodine) Cardiac Arrhythmia - Aware, has pacemaker in place YVAN - Will resume CPAP at night once respiratory function improves History of Giant Cell Arteritis - Aware, s/p steroid taper *Of note, patient has not taken any home medications in weeks due to N/V PCP: [facility]re[facility] Code: DNAR Diet: Tube Feeds Activity: Bed Rest ABx: Meropenem VTE PPx: None GI PPx: None IVF: None Dispo: Patient is currently admitted to the Oncology Floor following successful extubation on 04/15 s/p Ex-Lap for treatment of Septic Shock 2/2 Bowel Ischemia / Diverticulitis. Patient's mental cognition appears to be somewhat improved, although patient is unable to grasp the overall course of her recent hospitalization and long-term prognosis. Additionally, patient continues to intermittently discuss non-sensical or circular topics and does not appear to be capable of making complex medical decisions with regard to her long-term care. Discussed goals of care with patient's brother's (EDGARDO), who confirmed that he does want to pursue Hospice - will coordinate as needed with regard to level of care and placement issues. Pulm and GenSurg aware - will coordinate as needed. Overall, patient's condition remains stable but otherwise guarded, with long- term prognosis and likely recovery exceptionally poor based on advanced age and overall health at this point. Expected LOS < 48H. Addendum - Attending - Attending Attestation Date/Time: 04/17/20 4089 I personally evaluated the patient and discussed the management with Dr. Centeno yesterday. I agree with the History, Examination, Assessment and Plan documented above with any addition or exceptions noted below.
--- NOTE | 2020-04-16 07:59 | RAD ---
Exam: Chest one view HISTORY:Ventilated patient. Respiratory distress. Comparison: 04/13/2020 FINDINGS: Lines and tubes: Interval removal of endotracheal tube. Redemonstration of a nasogastric tube. Pacing device: Stable left-sided transvenous pacemaker. Cardiac silhouette: Normal Aorta: Unremarkable Pulmonary vessels: Normal Costophrenic angles: Redemonstration of bilateral pleural effusions LUNGS: Scattered interstitial and alveolar opacities, unchanged Pneumothorax: None Osseous abnormalities: Chronic changes to the right shoulder IMPRESSION: 1. Interval normal of endotracheal tube. 2. Persistent pleural and parenchymal changes.
[2020-04-16] MEDS ORDERED: Dextrose 5% in Water 1,000 ML IV SCH (08:15)
[2020-04-16 15:17] VITALS: BMI 30.3
[2020-04-16] MEDS ORDERED: Acetaminophen 500 MG TAB PO PRN (19:33)
[2020-04-16] MEDS ORDERED: traMADol HCl 50 MG TAB PO PRN (19:33)
--- NOTE | 2020-04-16 19:48 | PRG ---
DATE OF SERVICE: SUBJECTIVE: Ms. Mao was extubated yesterday, moved to the Oncology floor. She is a DNR. Family and patient agree that she should not be reintubated. She is on tube feedings and tolerating those with low residuals. Apparently, the son has agreed to hospice today, but the patient is not ready for that. OBJECTIVE: VITAL SIGNS: 97.6 degrees, 82, 124/78. LUNGS: Clear to auscultation. CARDIAC: Regular rate and rhythm without murmur or gallop. ABDOMEN: Soft, nontender, and nondistended. Colostomy healthy. Midline and lower wound VAC in place. EXTREMITIES: Mild edema. Obese. LABORATORIES: None today. Accu-Cheks 140 to 186. ASSESSMENT AND PLAN: Severe deconditioning, recovering from sepsis. Concern is her white count still elevated. Chest x-ray obtained does not reveal any acute findings, just those findings associated with her deconditioned and malnourished state such as mild edema and atelectasis. Colostomy status. Colostomy is healthy. Malnutrition, she is tolerating tube feedings. The patient did swallow water effectively without problems with her nurse performing this evaluation. At this point, we would remove her NG tube in the morning. Advance diet as tolerated. Continue supportive care. Dr. Dowd is covering the weekend. Please call if necessary. Job ID: [id number]
--- NOTE | 2020-04-17 06:30 | PDOC.FM ---
- Subjective Subjective: Patient was resting comfortably in bed at the time of evaluation. Patient denied any acute overnight events, but appeared somewhat guarded during discuss. Patient stated that that her niece would be arriving at some point today to help discuss a home care plan with [facility]. When questioned about her long- term care, patient did not seem to understand that she was immobile and would require assistance with bathing, mobility, ostomy bag maintenance etc. - Objective Vital Signs & Weight: Vital Signs (12 hours) Temp Pulse Resp BP Pulse Ox 04/17/20 00:10 95 04/16/20 19:56 97.5 F L 86 16 137/79 95 Weight Admit Weight 72.6 kg Weight 82.7 kg Most Recent Monitor Data Heart Rate from ECG 86 NIBP 117/63 NIBP BP-Mean 81 Respiration from ECG 18 SpO2 100 I&O: 04/15/20 04/16/20 04/17/20 06:59 06:59 06:59 Intake Total 5579 2429 45 Output Total 2934 6585 950 Balance -406 -4106 -905 Result Diagrams: 04/15/20 04:00 04/15/20 04:00 Phys Exam - Physical Examination Constitutional: NAD HEENT: moist MMs Neck: supple, full ROM Respiratory: no wheezing, no rales, no rhonchi, clear to auscultation bilateral Cardiovascular: RRR, no significant murmur, no rub Gastrointestinal: soft, non-tender, no distention, positive bowel sounds Ostomy bag in place - liquid stool present Musculoskeletal: pulses present Deconditioned Neurological: moves all 4 limbs Deviation from normal: Guarded affect Dx/Plan (1) Diverticulitis Code(s): K57.92 - DVTRCLI OF INTEST, PART UNSP, W/O PERF OR ABSCESS W/O BLEED Status: Acute (2) Septic shock Code(s): A41.9 - SEPSIS, UNSPECIFIED ORGANISM; R65.21 - SEVERE SEPSIS WITH SEPTIC SHOCK Status: Acute (3) UTI (urinary tract infection) Status: Acute (4) HLD (hyperlipidemia) Code(s): E78.5 - HYPERLIPIDEMIA, UNSPECIFIED Status: Chronic (5) HTN (hypertension) Code(s): I10 - ESSENTIAL (PRIMARY) HYPERTENSION Status: Chronic (6) Hypothyroidism Code(s): E03.9 - HYPOTHYROIDISM, UNSPECIFIED Status: Chronic (7) Acute respiratory failure with hypoxia Code(s): J96.01 - ACUTE RESPIRATORY FAILURE WITH HYPOXIA Status: Acute - Plan Plan: Patient is an 85 y/o female who presented to the hospital for evaluation of ABD pain. #Septic Shock, 2/2 to Bowel Ischemia with concomitant Diverticulitis, resolved -CT ABD: Diverticulitis w/o signs of abscess or perforation -s/p 3 L NS, Vanc and Zosyn in ED -Femoral Central Line (L) placed in ED for pressure support with Levophed gtt required to obtain MAP goal of 65 - dc'd on 04/10 -Transitioned ABx from Metronidazole and Cefepime to Meropenem (04/05) - dc'd on 04/15 following extubation -BCx: NGTD -Stool Cx: Pseudomonas -Dr. Dickinson (GenSurg): Consulted on 04/05 s/p Ex-Lap w/ resection of Splenic Flexure, Descending Colon, and Sigmoid Colon and placement of Colostomy - recommended continuation of ABx until patient is successfully extubated and shahrzad wel function improves -Pulm: Consulted, recs appreciated - successfully extubated patient on 04/15 -NG Tube and Tube Feeds dc'd by GenSurg -WBCs: Persistently elevated despite Meropenem - no acute signs of concurrent infection based on temperatures, daily CXRs and stable Physical Exam - will continue to monitor now that patient is off ABx #Mild adrenal insufficiency -AM Cortisol: 10 -s/p stress dose of steroids and daily Methylprednisolone 40 mg IV daily - currently held #JOEL, resolved -Cr: 1.91 > 2.05 >>> 1.03 -Urine output appears appropriate - will continue to monitor closely #UTI, resolved -UA: Turbid, 500 LE, >50 WBCs, 3+ bacteria -UCx: Klebsiella, Enterobacter and Aerococcus urinae - fisher-sensitive -Wheeler in place -ABx as above - adequately treated at this point #Anion Gap Metabolic Acidosis 2/2 to Lactic Acidosis, resolved -Due to above -LA: 4.1 > 2.0 -A > 13 #Indeterminate Trop -Likely 2/2 demand ischemia - no active chest pain -EKG: Very mild ST depression in V4 and V5, nonspecific ST segment changes in lateral leads noted on previous EKGs -Trop: 0.029 > 0.049 > 0.075 > 0.103 #HFpEF -Echo (12/20): EF 65-70%, Grade 1/3 diastolic dysfunction -Aware, will avoid fluid overload #Chronic Medical Conditions: HTN - BPs stable with no need for pressure support at this time HLD - Currently holding home medication regimen - (Atorvastatin 40 mg) Hypothyroid - Currently holding home medication regimen - (Levothyroxine 112 mcg) Osteoporosis - Currently holding home medication regimen - (Weekly Fosamax 70mg) Overactive Bladder - Currently holding home medication regimen - (4 mg Tolterodine) Cardiac Arrhythmia - Aware, has pacemaker in place YVAN - Will resume CPAP at night once respiratory function improves History of Giant Cell Arteritis - Aware, s/p steroid taper *Of note, patient has not taken any home medications in weeks due to N/V PCP: [facility] Code: DNAR Diet: Clear Liquids - Will Likely Advance Activity: Bed Rest ABx: None VTE PPx: None GI PPx: None IVF: None Dispo: Patient is currently admitted to the Oncology Floor following successful extubation on 04/15 s/p Ex-Lap for treatment of Septic Shock 2/2 Bowel Ischemia / Diverticulitis. Patient's mental cognition appears to be somewhat improved, although patient is unable to grasp the overall course of her recent hospitalization and long-term prognosis. Patient does not appear to be capable of making complex medical decisions with regard to her long-term care. Will continue to discuss goals of care with patient's brother's (EDGARDO), who confirmed that he does want to pursue Hospice. Overall, patient's condition remains stable, with long-term prognosis and likely recovery exceptionally poor based on advanced age and overall health at this point. Expected LOS < 48H. Addendum - Attending - Attending Attestation Date/Time: 04/17/20 4595 I personally evaluated the patient and discussed the management with Dr. Centeno. I agree with the History, Examination, Assessment and Plan documented above with any addition or exceptions noted below. Plans for hospice to be pursued. Will continue current mgmt.
--- NOTE | 2020-04-17 10:20 | PDOC.BPN ---
- Brief Progress Note Encounter Date: 04/17/20 Encounter Time: 10:00 Contacted patient's brother to discuss patient's status and overall goals of care. Reiterated that patient was stable but that her long-term prognosis is regrettably poor. Patient's brother confirmed that he wanted to pursue Hospice, and that he did not wish to restart active management of her chronic medical conditions at this time. Of note, patient's brother was very grateful for the care that his sister had received during her hospitalization.
--- NOTE | 2020-04-17 12:29 | PDOC.BPN ---
- Brief Progress Note Encounter Date: 04/17/20 Encounter Time: 12:28 Doing well s/p exploratory laparotomy with left-sided colectomy and Faulkner's procedure on April 05, 2019. Postoperative pain well controlled with current regimen. Tolerating diet, without nausea or vomiting. Stable ostomy function EXAM: VS: T 97.5 HR 86 BP 137/79 RR 16 General: No acute distress, resting comfortably Pulmonary: No dyspnea or difficulty breathing Abdomen: Soft, non-distended, incisions clean with dressing applied, ostomy patent and functioning CV: Regular rate and rhythm, palpable distal pulses Extremities: No edema LABORATORY / IMAGING: Laboratory analysis reviewed from April 15. Stable leukocytosis with unclear etiology. PLAN: Nasogastric tube discontinued. Advance diet as tolerated. Placement pending
--- NOTE | 2020-04-17 13:57 | EKG ---
Test Reason : Blood Pressure : / mmHG Vent. Rate : 107 BPM Atrial Rate : 107 BPM P-R Int : 166 ms QRS Dur : 072 ms QT Int : 360 ms P-R-T Axes : 055 -07 042 degrees QTc Int : 480 ms Sinus tachycardia with Premature atrial complexes Inferior infarct , age undetermined Cannot rule out Anterior infarct , age undetermined Abnormal ECG Confirmed by MOISES LANCE DO ([id number]), material expeditor LUIZ ARCHER ([id number]) on 04/17/2020 1:57:30 PM Referred By: Confirmed By:MOISES LANCE DO
--- NOTE | 2020-04-18 06:15 | PDOC.FM ---
- Subjective Subjective: Patient was asleep in bed but was easily arousable at the time of evaluation. Patient stated that she felt well and was not in any pain or respiratory distress. Patient stated that her niece came to visit yesterday and that she was very appreciative of the company. - Objective Vital Signs & Weight: Vital Signs (12 hours) Temp Pulse Resp BP Pulse Ox 04/17/20 20:52 98.0 F 91 14 125/59 L 96 Weight Admit Weight 72.6 kg Weight 82.7 kg Most Recent Monitor Data Heart Rate from ECG 86 NIBP 117/63 NIBP BP-Mean 81 Respiration from ECG 18 SpO2 100 I&O: 04/16/20 04/17/20 04/18/20 06:59 06:59 06:59 Intake Total 2429 585 100 Output Total 6535 1600 650 Balance -4106 -1015 -550 Result Diagrams: 04/15/20 04:00 04/15/20 04:00 Phys Exam - Physical Examination Constitutional: NAD HEENT: moist MMs Neck: supple, full ROM Respiratory: no wheezing, no rales, no rhonchi, clear to auscultation bilateral Cardiovascular: RRR, no significant murmur, no rub Gastrointestinal: soft, non-tender, no distention, positive bowel sounds Brown liquid stool in ostomy bag Musculoskeletal: pulses present b/l UE edema Psychiatric: normal affect Deviation from normal: Difficult to complete thoughts at times - similar to previous evaluation Dx/Plan (1) Diverticulitis Code(s): K57.92 - DVTRCLI OF INTEST, PART UNSP, W/O PERF OR ABSCESS W/O BLEED Status: Acute (2) Septic shock Code(s): A41.9 - SEPSIS, UNSPECIFIED ORGANISM; R65.21 - SEVERE SEPSIS WITH SEPTIC SHOCK Status: Acute (3) UTI (urinary tract infection) Status: Acute (4) HLD (hyperlipidemia) Code(s): E78.5 - HYPERLIPIDEMIA, UNSPECIFIED Status: Chronic (5) HTN (hypertension) Code(s): I10 - ESSENTIAL (PRIMARY) HYPERTENSION Status: Chronic (6) Hypothyroidism Code(s): E03.9 - HYPOTHYROIDISM, UNSPECIFIED Status: Chronic (7) Acute respiratory failure with hypoxia Code(s): J96.01 - ACUTE RESPIRATORY FAILURE WITH HYPOXIA Status: Acute - Plan Plan: Patient is an 85 y/o female who presented to the hospital for evaluation of ABD pain. #Septic Shock, 2/2 to Bowel Ischemia with concomitant Diverticulitis, resolved -CT ABD: Diverticulitis w/o signs of abscess or perforation -s/p 3 L NS, Vanc and Zosyn in ED -Femoral Central Line (L) placed in ED for pressure support with Levophed gtt required to obtain MAP goal of 65 - dc'd on 04/10 -Transitioned ABx from Metronidazole and Cefepime to Meropenem (04/05) - dc'd on 04/15 following extubation -BCx: NGTD -Stool Cx: Pseudomonas -Dr. Dickinson ([facility]): Consulted on 04/05 s/p Ex-Lap w/ resection of Splenic Flexure, Descending Colon, and Sigmoid Colon and placement of Colostomy - recommended continuation of ABx until patient is successfully extubated and bowel function improves - no additional recs since transfer out of ICU -Pulm: Consulted, recs appreciated - successfully extubated patient on 04/15 - no additional recs since transfer out of ICU -NG Tube and Tube Feeds dc'd by GenSurg -WBCs: Persistently elevated despite Meropenem - no acute signs of concurrent infection based on temperatures, daily CXRs and stable Physical Exam - will continue to monitor now that patient is off ABx #Mild adrenal insufficiency -AM Cortisol: 10 -s/p stress dose of steroids and daily Methylprednisolone 40 mg IV daily - currently held #JOEL, resolved -Cr: 1.91 > 2.05 >>> 1.03 -Urine output appears appropriate - will continue to monitor closely #UTI, resolved -UA: Turbid, 500 LE, >50 WBCs, 3+ bacteria -UCx: Klebsiella, Enterobacter and Aerococcus urinae - fisher-sensitive -Wheeler in place -ABx as above - adequately treated at this point #Anion Gap Metabolic Acidosis 2/2 to Lactic Acidosis, resolved -Due to above -LA: 4.1 > 2.0 -A > 13 #Indeterminate Trop -Likely 2/2 demand ischemia - no active chest pain -EKG: Very mild ST depression in V4 and V5, nonspecific ST segment changes in lateral leads noted on previous EKGs -Trop: 0.029 > 0.049 > 0.075 > 0.103 #HFpEF -Echo (12/20): EF 65-70%, Grade 1/3 diastolic dysfunction -Aware, will avoid fluid overload #Chronic Medical Conditions: HTN - BPs stable with no need for pressure support at this time HLD - Currently holding home medication regimen - (Atorvastatin 40 mg) Hypothyroid - Currently holding home medication regimen - (Levothyroxine 112 mcg) Osteoporosis - Currently holding home medication regimen - (Weekly Fosamax 70mg) Overactive Bladder - Currently holding home medication regimen - (4 mg Tolterodine) Cardiac Arrhythmia - Aware, has pacemaker in place YVAN - Will resume CPAP at night once respiratory function improves History of Giant Cell Arteritis - Aware, s/p steroid taper *Of note, patient has not taken any home medications in weeks due to N/V PCP: Contreras Code: DNAR Diet: Full Liquid - Advance as Tolerated Activity: Bed Rest ABx: None VTE PPx: None GI PPx: None IVF: None Dispo: Patient is currently admitted to the Oncology Floor following successful extubation on 04/15 s/p Ex-Lap for treatment of Septic Shock 2/2 Bowel Ischemia / Diverticulitis. Patient's mental cognition appears to be somewhat improved from earlier in the week, although patient is unable to grasp the overall course of her recent hospitalization and long-term prognosis. Patient does not appear to be capable of making complex medical decisions with regard to her long-term care. Will continue to discuss goals of care with patient's brother's (EDGARDO), who confirmed that he does want to pursue Hospice. Overall, patient's condition remains stable, with long-term prognosis and likely recovery exceptionally poor based on advanced age and overall health at this point. Will discuss patient's case with CM / Hospice later this AM to discuss placement. Expected LOS < 48H. Addendum - Attending - Attending Attestation Date/Time: 04/18/20 0609 I personally evaluated the patient and discussed the management with Dr. Marie quan. I agree with the History, Examination, Assessment and Plan documented above with any addition or exceptions noted below. Patient is stable. Case mgmt is working to set up hospice per family wishes.
--- NOTE | 2020-04-18 07:20 | PDOC.BPN ---
- Brief Progress Note Encounter Date: 04/18/20 Encounter Time: 07:18 No acute events overnight. Refused oral intake for most of the day yesterday; however, began eating later in the day. Otherwise, no acute complaints. Denies pain, nausea, or vomiting. EXAM: VS: T 98 HR 91 BP 125/59 RR 14 General: Alert and oriented, no acute distress, resting comfortably Pulmonary: No dyspnea or difficulty breathing Abdomen: Soft, non-distended, incisions clean, ostomy viable and patent with stool in gas output CV: Regular rate and rhythm, palpable distal pulses Extremities: No edema, ecchymosis of right hand from IV (stable) I/O: 100 cc oral intake Multiple voids UOP LABORATORY / IMAGING: No new labs PLAN: 85-year-old female status post left-sided colectomy with end ileostomy, now with deconditioning. Placement pending Encouraged to increase oral intake
--- NOTE | 2020-04-19 06:06 | PDOC.FM ---
- Subjective Subjective: Doing well this morning, no acute events overnight. A/O x2 to person and place. Unaware of situation and prognosis. States she just wants to go home and be comfortable. Defers medical decisions to her brother Bernabe. Denies CP, SOB, fever/chills, n/v, abd pain. - Objective MAR Reviewed: Yes Vital Signs & Weight: Vital Signs (12 hours) Temp Pulse Resp BP Pulse Ox 04/18/20 20:00 98.4 F 85 16 119/73 97 Weight Admit Weight 72.6 kg Weight 82.7 kg Most Recent Monitor Data Heart Rate from ECG 86 NIBP 117/63 NIBP BP-Mean 81 Respiration from ECG 18 SpO2 100 I&O: 04/17/20 04/18/20 04/19/20 06:59 06:59 06:59 Intake Total 585 150 200 Output Total 1600 1000 2400 Balance -9701 -157 -3194 Result Diagrams: 04/19/20 07:55 04/19/20 07:55 Phys Exam - Physical Examination Constitutional: NAD (pleasant, eager to go home, frail appearing) HEENT: moist MMs Neck: supple Respiratory: no wheezing, no rales, no rhonchi, clear to auscultation bilateral Cardiovascular: RRR 2/6 systolic ejection murmur Gastrointestinal: soft, non-tender, positive bowel sounds Ostomy in place, no surrounding skin changes 1+ pitting to ankles Neurological: moves all 4 limbs Deviation from normal: A/O x2 Dx/Plan (1) Diverticulitis Code(s): K57.92 - DVTRCLI OF INTEST, PART UNSP, W/O PERF OR ABSCESS W/O BLEED Status: Acute (2) Septic shock Code(s): A41.9 - SEPSIS, UNSPECIFIED ORGANISM; R65.21 - SEVERE SEPSIS WITH SEPTIC SHOCK Status: Resolved (3) UTI (urinary tract infection) Status: Resolved - Plan Plan: 85 y/o F with h/o HTN, HLD, HFpEF who presented for septic shock 2/2 bowel ischemia and diverticulitis s/p exlap, POD #14 #Septic Shock, 2/2 to Bowel Ischemia with concomitant Diverticulitis s/p exlap, resolved -CT ABD: Diverticulitis w/o signs of abscess or perforation -s/p 3 L NS, Vanc and Zosyn in ED -Femoral Central Line (L) placed in ED for pressure support with Levophed gtt required to obtain MAP goal of 65 - dc'd on 04/10 -Transitioned ABx from Metronidazole and Cefepime to Meropenem (04/05) - dc'd on 04/15 following extubation -BCx: NGTD -Stool Cx: Pseudomonas -Dr. Dickinson ([facility] [place]): Consulted on 04/05 s/p Ex-Lap w/ resection of Splenic Flexure, Descending Colon, and Sigmoid Colon and placement of Colostomy - recommended continuation of ABx until patient is successfully extubated and bowel function improves - no additional recs since transfer out of ICU -Pulm: Consulted, recs appreciated - successfully extubated patient on 04/15 - no additional recs since transfer out of ICU -NG Tube and Tube Feeds dc'd by GenSurg -s/p 2 u pRBC -Pt states she does not want further aggressive care #Mild adrenal insufficiency -AM Cortisol: 10 -s/p stress dose of steroids and daily Methylprednisolone 40 mg IV daily - now d/c'ed #OJEL, resolved -Cr: 1.91 > 2.05 >>> 1.03 -Urine output appears appropriate - will continue to monitor closely #UTI, resolved -UCx: Klebsiella, Enterobacter and Aerococcus urinae - fisher-sensitive -s/p Wheeler -ABx as above - adequately treated, now d/c'ed #Anion Gap Metabolic Acidosis 2/2 to Lactic Acidosis, resolved -Due to above -LA: 4.1 > 2.o, A > 13 #Indeterminate Trop 2/2 Septic Shock -Likely 2/2 demand ischemia - no active chest pain -EKG: Very mild ST depression in V4 and V5, nonspecific ST segment changes in lateral leads noted on previous EKGs -Trop: 0.029 > 0.049 > 0.075 > 0.103 #HFpEF -Echo (12/20): EF 65-70%, Grade 1/3 diastolic dysfunction -Aware, will avoid fluid overload, lasix prn #Chronic Medical Conditions: HTN - BPs stable with no need for pressure support at this time HLD - Currently holding home medication regimen - (Atorvastatin 40 mg) Hypothyroid - Currently holding home medication regimen - (Levothyroxine 112 mcg) Osteoporosis - Currently holding home medication regimen - (Weekly Fosamax 70mg) Overactive Bladder - Currently holding home medication regimen - (4 mg Tolterodine) Cardiac Arrhythmia - Aware, has pacemaker in place YVAN - Will resume CPAP at night once respiratory function improves History of Giant Cell Arteritis - Aware, s/p steroid taper *Of note, patient has not taken any home medications in weeks due to N/V PCP: Contreras Code: DNAR Diet: Full Liquid - Advance as Tolerated Activity: Bed Rest ABx: None VTE PPx: None GI PPx: None IVF: None Dispo: Admitted to Onc following successful extubation on 04/15 s/p Ex-Lap for treatment of Septic Shock 2/2 Bowel Ischemia / Diverticulitis. Patient's mental cognition appears to be stable, A/O x2 but unable to grasp overall course and long-term prognosis. Just wants to go home and be comfortable and defers medical decisions to brother (MPOA. Will continue to discuss goals of care with patient's brother's (MPOA), who confirmed that he does want to pursue Hospice. C M to assist with arrangement of Hospice care. Stable for discharge to hospice once arranged. Addendum - Attending - Attending Attestation Date/Time: 04/19/20 9510 I personally evaluated the patient and discussed the management with Dr. Orellana I agree with the History, Examination, Assessment and Plan documented above with any addition or exceptions noted below - Patient denies complaints. DId eat some breakfast. Denies any pain. Afebrile VSS. A/P: 1) Sepsis secondary to diverticulitis- resolved. 2) S/P Left colectomy with colostomy- stable. 3) Hypothyroidism - continue home meds.
[2020-04-19 08:32] LABS: Anion Gap 12 mmol/L (10-20); BUN (Urea Nitrogen) 21 mg/dL (9.8-20.1); Calc. Creatinine Clearance 82 mL/min (70-130); Calcium 7.4 mg/dL (7.8-10.44); Carbon Dioxide 24 mmol/L (23-31); Chloride 104 mmol/L (98-107); Magnesium 1.6 mg/dL (1.6-2.6); Potassium 3.3 mmol/L (3.5-5.1); Sodium 137 mmol/L (136-145)
[2020-04-19 08:36] LABS: Glucose 48 mg/dL (83-110)
[2020-04-19 08:53] LABS: #Basophils 0.1 thou/uL (0.0-0.2); #Eosinphils 0.3 thou/uL (0.0-0.7); #Lymphocytes 1.1 thou/uL (1.20-3.40); %Basophils 0.4 % (0.0-1.0); %Eosinophils 2.2 % (0.0-10.0); %Lymphocytes 8.9 % (21.0-51.0); %Neutrophils 80.5 % (42.0-75.0); Hemoglobin 11.4 g/dL (12.0-16.0); Mean Corpuscular HGB CONC 33.1 g/dL (32.0-36.0); Mean Corpuscular Hemoglobin 29.3 pg (27.0-31.0); Mean Corpuscular Volume 88.6 fL (78.0-98.0); Mean Platelet Volume 8.5 fL (7.4-10.4); Platelet Count 91 thou/uL (130-400); Platelet Morphology Comment Appears Decreased; RBC Distribution Width 15.2 % (11.5-14.5); RBC Morphology Normal; Red Blood Cell (RBC) Count 3.89 mill/uL (4.20-5.40); White Blood Cell (WBC) Count 12.5 thou/uL (4.8-10.8)
[2020-04-19] MEDS ORDERED: Magnesium Sulfate 2 GM in Sodium Chloride 0.9% 100 ML IVPB SCH (09:45)
[2020-04-19] MEDS ORDERED: Magnesium 2 GM/50 ML 2 GM in Premix Bag 1 BAG IVPB SCH (10:15)
[2020-04-19] MEDS: Potassium Chloride 20 MEQ TAB PO SCH ×2 (11:22→11:31)
[2020-04-19] MEDS ORDERED: Potassium Chloride 20 MEQ in Premix Bag 1 BAG IVPB SCH (12:00)
[2020-04-19 14:37] LABS: Actual Bicarbonate (HCO3a) 15.7 mEq/L (22-28); Analyzer IN Cardio OR; Base Excess (BEa) -8.8 mEq/L (-2.0 to +3.0); Calcium, Ionized (arterial) 1.04 mmol/L (1.12-1.30); Carboxyhemoglobin (COHb) 0.3 gm% (0.0-3.0); Hemoglobin (Hb) 9.4 g/dL (12.0-16.0); O2 Tension (PaO2), arterial 195.4 mmHg (> 60.0); Potassium - ABG Lab 3.43 mmol/L (3.70-5.30); pH, Arterial 7.35 (7.35-7.45)
[2020-04-19 14:38] LABS: Puncture Site Arterial Line
[2020-04-19] MEDS: Atorvastatin Calcium 40 MG TAB PO SCH (20:24)
[2020-04-20] MEDS: Levothyroxine Sodium 112 MCG TAB PO SCH (05:57)
--- NOTE | 2020-04-20 07:04 | PDOC.FM ---
- Subjective Subjective: Doing well this morning, no acute events overnight. Denies any pain. Denies CP, SOB, n/v, ALLEN, vision changes. Eager for discharge to [facility]. No concerns for this morning. - Objective MAR Reviewed: Yes Vital Signs & Weight: Vital Signs (12 hours) Temp Pulse Resp BP Pulse Ox 04/19/20 20:00 97.6 F 73 16 107/67 94 L Weight Admit Weight 72.6 kg Weight 82.7 kg Most Recent Monitor Data Heart Rate from ECG 86 NIBP 117/63 NIBP BP-Mean 81 Respiration from ECG 18 SpO2 100 I&O: 04/19/20 04/20/20 04/21/20 06:59 06:59 06:59 Intake Total 200 400 Output Total 2400 1050 Balance -2200 -650 Result Diagrams: 04/19/20 07:55 04/19/20 07:55 Phys Exam - Physical Examination Constitutional: NAD (frail, resting comfortably) HEENT: moist MMs Neck: no nodes, supple Respiratory: no wheezing, no rales, no rhonchi, clear to auscultation bilateral Cardiovascular: RRR 2/6 systolic ejection murmur Gastrointestinal: soft, no distention, positive bowel sounds ostomy in place, wound vac in place 1+ pitting to above ankles Psychiatric: normal affect Dx/Plan (1) Diverticulitis Code(s): K57.92 - DVTRCLI OF INTEST, PART UNSP, W/O PERF OR ABSCESS W/O BLEED Status: Acute (2) Septic shock Code(s): A41.9 - SEPSIS, UNSPECIFIED ORGANISM; R65.21 - SEVERE SEPSIS WITH SEPTIC SHOCK Status: Resolved (3) UTI (urinary tract infection) Status: Resolved - Plan Plan: 85 y/o F with h/o HTN, HLD, HFpEF who presented for septic shock 2/2 bowel ischemia and diverticulitis s/p exlap, POD #15 #Septic Shock, 2/2 to Bowel Ischemia with concomitant Diverticulitis s/p exlap, resolved -CT ABD: Diverticulitis w/o signs of abscess or perforation -s/p 3 L NS, Vanc and Zosyn in ED -Femoral Central Line (L) placed in ED for pressure support with Levophed gtt required to obtain MAP goal of 65 - dc'd on 04/10 -Transitioned ABx from Metronidazole and Cefepime to Meropenem (04/05) - dc'd on 04/15 following extubation -BCx: NGTD -Stool Cx: Pseudomonas -Dr. Dickinson ([facility]): Consulted on 04/05 s/p Ex-Lap w/ resection of Splenic Flexure, Descending Colon, and Sigmoid Colon and placement of Colostomy - recommended continuation of ABx until patient is successfully extubated and bowel function improves - no additional recs since transfer out of ICU -Pulm: Consulted, recs appreciated - successfully extubated patient on 04/15 - no additional recs since transfer out of ICU -NG Tube and Tube Feeds dc'd by GenSurg -s/p 2 u pRBC -Pt states she does not want further aggressive care #Mild adrenal insufficiency, resolved -AM Cortisol: 10 -s/p stress dose of steroids and daily Methylprednisolone 40 mg IV daily - now d/c'ed #JOEL, resolved -Cr: 1.91 > 2.05 >>> 1.03 -Urine output appears appropriate - will continue to monitor closely #UTI, resolved -UCx: Klebsiella, Enterobacter and Aerococcus urinae - fisher-sensitive -s/p Wheeler -ABx as above - adequately treated, now d/c'ed #Anion Gap Metabolic Acidosis 2/2 to Lactic Acidosis, resolved -Due to above -LA: 4.1 > 2.o, A > 13 #Indeterminate Trop 2/2 Septic Shock, resolved -Likely 2/2 demand ischemia - no active chest pain -EKG: Very mild ST depression in V4 and V5, nonspecific ST segment changes in lateral leads noted on previous EKGs -Trop: 0.029 > 0.049 > 0.075 > 0.103 #HFpEF -Echo (12/20): EF 65-70%, Grade 1/3 diastolic dysfunction -Aware, will avoid fluid overload, lasix prn #Chronic Medical Conditions: HTN - BPs stable with no need for pressure support at this time HLD - Atorvastatin 40 mg Hypothyroid - Levothyroxine 112 mcg Osteoporosis - Currently holding home medication regimen - (Weekly Fosamax 70mg) Overactive Bladder - Currently holding home medication regimen - (4 mg Tolterodine) due to concern for delirium Cardiac Arrhythmia - Aware, has pacemaker in place YVAN - aware History of Giant Cell Arteritis - Aware, s/p steroid taper PCP: Contreras Code: DNAR Diet: Full Liquid - Advance as Tolerated Activity: Bed Rest ABx: None VTE PPx: None GI PPx: None IVF: None Dispo: Admitted to Onc following successful extubation on 04/15 s/p Ex-Lap for treatment of Septic Shock 2/2 Bowel Ischemia / Diverticulitis. Patient's mental cognition appears to be stable, A/O x2 but unable to grasp overall course and long-term prognosis. Just wants to go home and be comfortable and defers medical decisions to brother (MPOA). Brother and patient desire to move to SNF at [facility]. Accepted. Anticipate discharge today. Addendum - Attending - Attending Attestation Date/Time: 04/21/20 1500 I personally evaluated the patient and discussed the management with Dr. Orellana on 04/20/2020 I agree with the History, Examination, Assessment and Plan documented above with any addition or exceptions noted below - Patient denies any complaints. Appetite slowly improving. Afebrile VSS. A/P: 1) Sepsis secondary to diverticulitis- re solved, 2) s/p hemocolectomy with colostomy- helaing well, 3) Deconditioning - continue PT/ST. Ready for transfer to SNF when accepted.
[2020-04-20] MEDS ORDERED: Furosemide 20 MG TAB PO SCH (11:00)
--- NOTE | 2020-04-20 19:56 | PRG ---
DATE OF SERVICE: 04/20/2020 SUBJECTIVE: Juana Mao is doing well today. Her colostomy is functioning well. She feels better. She is eating well. OBJECTIVE: LUNGS: Clear to auscultation. CARDIAC: Regular rate and rhythm without murmur or gallop. ABDOMEN: Soft. Colostomy healthy. Overall, she is doing well. She will be transferred to assisted care in the next day or two. She can follow up with me in 3-4 weeks. Job ID: [id number]
[2020-04-20] MEDS: Atorvastatin Calcium 40 MG TAB PO SCH (20:24)
[2020-04-21] MEDS: Levothyroxine Sodium 112 MCG TAB PO SCH (05:21)
--- NOTE | 2020-04-21 06:26 | PDOC.FM ---
- Subjective Subjective: Doing very well this morning, no acute events overnight. States did not eat much yesterday but is hungry for breakfast this AM. Eager for transfer to [facility]. No pain. Denies fever/chills, CP, SOB, n/v. States strength, especially in upper ext, is improving. - Objective MAR Reviewed: Yes Vital Signs & Weight: Vital Signs (12 hours) Temp Pulse Resp BP Pulse Ox 04/20/20 20:00 97.5 F L 82 16 115/57 L 97 Weight Admit Weight 72.6 kg Weight 82.7 kg Most Recent Monitor Data Heart Rate from ECG 86 NIBP 117/63 NIBP BP-Mean 81 Respiration from ECG 18 SpO2 100 I&O: 04/19/20 04/20/20 04/21/20 06:59 06:59 06:59 Intake Total 200 400 Output Total 2400 1050 1450 Balance -2200 -650 -1450 Result Diagrams: 04/19/20 07:55 04/19/20 07:55 Phys Exam - Physical Examination Constitutional: NAD (resting comfortably) HEENT: moist MMs Neck: supple Respiratory: no wheezing, no rales, no rhonchi, clear to auscultation bilateral Cardiovascular: RRR Gastrointestinal: soft, no distention, positive bowel sounds ostomy in place, d/c/i. Ex-lap wound vac in place 4/5 strength BL UE, 3+/5 LE Psychiatric: normal affect Deviation from normal: A/O x2 to person and place Dx/Plan (1) Diverticulitis Code(s): K57.92 - DVTRCLI OF INTEST, PART UNSP, W/O PERF OR ABSCESS W/O BLEED Status: Acute (2) Septic shock Code(s): A41.9 - SEPSIS, UNSPECIFIED ORGANISM; R65.21 - SEVERE SEPSIS WITH SEPTIC SHOCK Status: Resolved (3) UTI (urinary tract infection) Status: Resolved - Plan Plan: 85 y/o F with h/o HTN, HLD, HFpEF who presented for septic shock 2/2 bowel ischemia and diverticulitis s/p exlap, POD #16 #Septic Shock, 2/2 to Bowel Ischemia with concomitant Diverticulitis s/p exlap, bowel resection, and ostomy -CT ABD: Diverticulitis w/o signs of abscess or perforation -s/p 3 L NS, Vanc and Zosyn in ED -Femoral Central Line (L) placed in ED for pressure support with Levophed gtt required to obtain MAP goal of 65 - dc'd on 04/10 -Transitioned ABx from Metronidazole and Cefepime to Meropenem (04/05) - dc'd on 04/15 following extubation -BCx: NGTD -Stool Cx: Pseudomonas -Dr. Dickinson ([facility]): Consulted on 04/05 s/p Ex-Lap w/ resection of Splenic Flexure, Descending Colon, and Sigmoid Colon and placement of Colostomy - patient cleared for discharge and outpt follow up -Pulm: Consulted, recs appreciated - successfully extubated patient on 04/15 -NG Tube and Tube Feeds dc'd by GenSurg -s/p 2 u pRBC -Pt states she does not want further aggressive care -Patient stable for transfer to SNF once approved #Mild adrenal insufficiency, resolved -AM Cortisol: 10 -s/p stress dose of steroids and daily Methylprednisolone 40 mg IV daily - now d/c'ed #JOEL, resolved -Cr: 1.91 > 2.05 >>> 1.03 -Urine output appears appropriate - will continue to monitor closely #UTI, resolved -UCx: Klebsiella, Enterobacter and Aerococcus urinae - fisher-sensitive -s/p Wheeler -ABx as above - adequately treated, now d/c'ed #Anion Gap Metabolic Acidosis 2/2 to Lactic Acidosis, resolved -Due to above -LA: 4.1 > 2.o, A > 13 #Indeterminate Trop 2/2 Septic Shock, resolved -Likely 2/2 demand ischemia - no active chest pain -EKG: Very mild ST depression in V4 and V5, nonspecific ST segment changes in lateral leads noted on previous EKGs -Trop: 0.029 > 0.049 > 0.075 > 0.103 #HFpEF -Echo (12/20): EF 65-70%, Grade 1/3 diastolic dysfunction -Aware, will avoid fluid overload, lasix prn #Chronic Medical Conditions: HTN - BPs stable with no need for pressure support at this time HLD - Atorvastatin 40 mg Hypothyroid - Levothyroxine 112 mcg Osteoporosis - Currently holding home medication regimen - (Weekly Fosamax 70mg) Overactive Bladder - Currently holding home medication regimen - (4 mg Tolterodine) due to concern for delirium Cardiac Arrhythmia - Aware, has pacemaker in place YVAN - aware History of Giant Cell Arteritis - Aware, s/p steroid taper PCP: Contreras Code: DNAR Diet: Full Liquid - Advance as Tolerated Activity: Bed Rest ABx: None VTE PPx: None GI PPx: None IVF: None Dispo: Admitted to Onc following successful extubation on 04/15 s/p Ex-Lap for treatment of Septic Shock 2/2 Bowel Ischemia / Diverticulitis. Patient's mental cognition appears to be stable, A/O x2 but unable to grasp overall course and long-term prognosis. Just wants to go home and be comfortable and defers medical decisions to brother (MPOA). Brother and patient desire to move to SNF at [facility]. Accepted. Anticipate discharge today pending insurance approval. Addendum - Attending - Attending Attestation Date/Time: 04/21/20 3524 I personally evaluated the patient and discussed the management with Dr. Orellana I agree with the History, Examination, Assessment and Plan documented above with any addition or exceptions noted below - Patient without complaints. Eating breakfast with assistance. Afebrile VSS. A/P: 1) Sepssis secondary to diverticulitis- resolved. 2) S/p hemocolectomy with ostomy- healing well. ostomy functioning well. 3) HTN- well controlled; continue monitoring. 4) Deconditioning- accepted by SNF; plan to d/c today.
[2020-04-21 08:41] VITALS: BP 112/73; TEMP 97.8
--- NOTE | 2020-04-22 06:59 | DIS ---
DATE OF ADMISSION: 04/04/2020 DATE OF DISCHARGE: 04/21/2020 RESIDENT: Diaz Orellana MD. ADMITTING ATTENDING: Eryn Crisostomo MD. DISCHARGE ATTENDING: Eryn Crisostomo MD. CONSULTS: 1. Surgery, Dr. Dickinson. 2. Pulmonology, Dr. Rivera. PROCEDURES: 1. Placement of left femoral central line on 04/04. 2. Exploratory laparotomy with resection of splenic flexure, descending colon, sigmoid colon with Cortez's procedure and colostomy formation performed on 04/05/2020. 3. Intubation on 04/05/2020, with extubation on 04/15/2020. 4. Transfusion of 2 units packed red blood cells on 04/05/2020. 5. Abdomen and pelvis CT performed on 04/04/2020 demonstrating colitis involving the descending colon, which extends from the level of splenic flexure to the sigmoid colon with multiple diverticula. PRIMARY DIAGNOSIS: Septic shock secondary to bowel ischemia with concomitant diverticulitis, status post exploratory laparotomy with bowel resection and ostomy formation. SECONDARY DIAGNOSES: 1. Mild renal insufficiency, resolved. 2. Acute kidney injury, resolved. 3. Urinary tract infection, resolved. 4. Anion gap metabolic acidosis secondary to septic shock, resolved. 5. Indeterminate troponin secondary to septic shock, resolved. 6. Heart failure preserved ejection fraction. 7. Hypertension. 8. Hyperlipidemia. 9. Hypothyroidism. 10. Osteoporosis. 11. Overactive bladder. 12. History of cardiac arrhythmias, status post pacemaker. 13. Obstructive sleep apnea. 14. History of giant cell arteritis. DISCHARGE MEDICATIONS: 1. Levothyroxine 112 mcg p.o. q.a.m. 2. Atorvastatin 40 mg p.o. at bedtime. 3. Tramadol 50 mg p.o. q.6 hours p.r.n. 4. Tylenol 1000 mg p.o. take q.6 hours p.r.n. 5. MiraLAX 17 g daily. 6. Tolterodine 4 mg p.o. daily. DISCONTINUED MEDICATIONS: 1. Fluconazole 150 mg p.o. daily. 2. Fosamax 70 mg p.o. q.7 days. 3. Aspirin 325 mg p.o. daily. 4. Lisinopril/hydrochlorothiazide 20/25 mg daily. 5. Diltiazem 240 mg p.o. daily. HISTORY OF PRESENT ILLNESS AND HOSPITAL COURSE: The patient is an 85-year-old female with past medical history of hypertension, hyperlipidemia, hypothyroidism, and cardiac arrhythmias, status post pacemaker, who presented to the emergency department with nausea, vomiting, and abdominal pain present for the past 1 month, alternating diarrhea and constipation and believes her last bowel movement was approximately 2 weeks prior to presentation. In the ED, she was given vancomycin and Zosyn, pain medications and a left femoral central line was placed and the patient was started on Levophed for septic shock. CT abdomen was obtained with findings per above. The patient was continued on antibiotics and was fluid resuscitated. Cultures were obtained. Metabolic derangements were noted and corrected appropriately. The patient was admitted to the CCU for further evaluation and management. The patient was continued on pressor support and broad-spectrum antibiotics. The patient had worsening of her physical exam and vital signs with increase of her pressure support and thus Surgery was consulted for evaluation. Surgery came and evaluated the patient and ultimately took the patient back to the OR for exploratory laparotomy with bowel resection and ostomy formation. The patient was unable to be extubated postprocedure and was transferred back to the [facility] for further evaluation and management. The patient was managed on the ventilator for multiple days. Pulmonology was consulted for assistance and antibiotics were continued, was transitioned to meropenem and completed 10-day course. Blood cultures were no growth. Stool cultures were positive for Pseudomonas. Urine cultures showed a pansensitive UTI. She was transfused 2 units packed red blood cells. Initially it looked like the patient would not recover very well from this acute illness, however, she did turn the corner and was ultimately able to be extubated on 04/15. At that point, antibiotics were discontinued and the patient began to improve. The patient's mentation improved. The patient was initially to proceed with hospice. However, due to her improvements, her brother, EDGARDO decided to proceed with SNF placement and continued rehab to evaluate as she progressed. Antibiotics were discontinued. The patient remained stable and was ultimately accepted at [facility] for half-way care. The patient was agreeable to this and was A and O x2 to person and place at the time of discharge and appeared overall improved. Discharge plan was discussed with the patient, who voiced agreement and understanding discharge plan, was eager to be discharged to [facility]. MPORoel, her brother was also contacted and agreeable to transfer. Home medications were adjusted as needed. The patient's metabolic derangements resolved. DISPOSITION: Stable. DISCHARGE INSTRUCTIONS: 1. Location: [facility]. 2. Activity: As tolerated. Continue physical therapy and occupational therapy. 3. Diet: Full liquid to continue to advance as tolerated. 4. Followup: The patient to follow up with primary care physician at [facility]. The patient also to follow up with Dr. Dickinson in approximately 2 weeks. Job ID: [id number]
== END 2020-04-21 14:10 | DRG 853 ==
LOC: ERS 16:19 → ERHOLD 21:02 → CCU 04-05 16:04 → IMCU/EMU 04-06 20:38 → ONC 04-15 20:43
PROVIDERS: ADMIT Family Medicine; ATTEND Family Medicine
PROC: 06HY33Z Insertion of Infusion Device into Lower Vein, Percutaneous Approach (ICD-10-PCS; 2020-04-04)
PROC: 3E033XZ Introduction of Vasopressor into Peripheral Vein, Percutaneous Approach (ICD-10-PCS; 2020-04-04)
PROC: 0D9770Z Drainage of Stomach, Pylorus with Drainage Device, Via Natural or Artificial Opening (ICD-10-PCS; 2020-04-04)
PROC: 0DTG0ZZ Resection of Left Large Intestine, Open Approach (ICD-10-PCS; principal; 2020-04-05)
PROC: 0D1N0Z4 Bypass Sigmoid Colon to Cutaneous, Open Approach (ICD-10-PCS; 2020-04-05)
PROC: 0BH17EZ Insertion of Endotracheal Airway into Trachea, Via Natural or Artificial Opening (ICD-10-PCS; 2020-04-05)
PROC: 5A1955Z Respiratory Ventilation, Greater than 96 Consecutive Hours (ICD-10-PCS; 2020-04-05)
PROC: 30233N1 Transfusion of Nonautologous Red Blood Cells into Peripheral Vein, Percutaneous Approach (ICD-10-PCS; 2020-04-05)
DX: A41.9 Sepsis, unspecified organism (principal); R65.21 Severe sepsis with septic shock; K65.9 Peritonitis, unspecified; J96.01 Acute respiratory failure with hypoxia; N17.9 Acute kidney failure, unspecified; N39.0 Urinary tract infection, site not specified; E87.2 Acidosis; I50.32 Chronic diastolic (congestive) heart failure; K57.32 Diverticulitis of large intestine without perforation or abscess without bleeding; I44.2 Atrioventricular block, complete; K55.9 Vascular disorder of intestine, unspecified; E27.40 Unspecified adrenocortical insufficiency; I24.8 Other forms of acute ischemic heart disease; E46 Unspecified protein-calorie malnutrition; J90 Pleural effusion, not elsewhere classified; Z51.5 Encounter for palliative care; Z66 Do not resuscitate; Z20.822 Contact with and (suspected) exposure to COVID-19; I11.0 Hypertensive heart disease with heart failure; E78.5 Hyperlipidemia, unspecified; E03.9 Hypothyroidism, unspecified; M81.0 Age-related osteoporosis without current pathological fracture; N32.81 Overactive bladder; E78.00 Pure hypercholesterolemia, unspecified; G47.33 Obstructive sleep apnea (adult) (pediatric); M19.90 Unspecified osteoarthritis, unspecified site; E66.9 Obesity, unspecified; I49.9 Cardiac arrhythmia, unspecified; Z95.0 Presence of cardiac pacemaker; Z79.890 Hormone replacement therapy; Z79.899 Other long term (current) drug therapy; Z90.49 Acquired absence of other specified parts of digestive tract; Z98.890 Other specified postprocedural states; Z79.82 Long term (current) use of aspirin; Z68.30 Body mass index [BMI] 30.0-30.9, adult; E83.42 Hypomagnesemia; E83.51 Hypocalcemia; E87.8 Other disorders of electrolyte and fluid balance, not elsewhere classified; B96.89 Other specified bacterial agents as the cause of diseases classified elsewhere; B96.1 Klebsiella pneumoniae [K. pneumoniae] as the cause of diseases classified elsewhere
CPT/HCPCS: 0240U; 36415; 36416; 36430; 36600; 51702; 71045; 74176; 80048; 80053; 80076; 81003; 81015; 82533; 82553; 82805; 83605; 83630; 83735; 84100; 84145; 84484; 85025; 86850; 86900; 86901; 87040; 87045; 87046; 87077; 87086; 87186; 87324; 87427; 87449; 87493; 88307; 93005; 94002; 94003; 94640; 96365; 96366; 96367; 96368; 96375; C9113; J0692; J1644; J1650; J1720; J1940; J2060; J2185; J2270; J2405; J2543; J2550; J2704; J2765; J2920; J3010; J3370; J3475; J3480; J3490; J7050; J7070; P9016; P9045; P9047

== ENCOUNTER 2021-03-24 09:38 | Emergency (ER) | payer MEDICARE, BC | END 2021-03-24 11:58 | disposition home or self-care (01) | LOC: ERS 09:38 | DX: B37.3 Candidiasis of vulva and vagina (principal); N81.10 Cystocele, unspecified; M19.90 Unspecified osteoarthritis, unspecified site; I10 Essential (primary) hypertension; E78.00 Pure hypercholesterolemia, unspecified; E78.5 Hyperlipidemia, unspecified; E03.9 Hypothyroidism, unspecified; G47.30 Sleep apnea, unspecified; Z79.899 Other long term (current) drug therapy | CPT/HCPCS: 99282 ==

== ENCOUNTER 2023-06-22 07:40 | Outpatient (CLI) | payer BC, MEDICARE ==
[2023-06-22 09:00] LABS: #Basophils 0.2 10x3/uL (0.0-0.2); #Eosinphils 0.5 10x3/uL (0.0-0.5); #Monocytes 1.1 10x3/uL (0.0-1.1); #Neutrophils 8.4 10x3/uL (1.5-8.4); %Basophils 1.2 % (0.0-2.0); %Lymphocytes 20.9 % (18.0-47.0); %Monocytes 8.3 % (0.0-10.0); %Neutrophils 64.7 % (40.0-75.0); Hematocrit 43.8 % (34.9-44.5); Hemoglobin 13.9 g/dL (12.0-15.5); Mean Corpuscular HGB CONC 31.7 g/dL (32.0-36.0); Mean Corpuscular Hemoglobin 27.8 pg (27.0-33.0); Mean Corpuscular Volume 87.6 fl (81.6-98.3); Mean Platelet Volume 9.1 fl (7.4-10.4); Platelet Count 353 10x3/uL (150-450); RBC Distribution Width 14.6 % (11.5-14.5); White Blood Cell (WBC) Count 12.9 10x3/uL (3.5-10.5)
[2023-06-22 09:12] LABS: ALT (SGPT) 29 U/L (8-55); AST (SGOT) 33 U/L (5-34); Albumin 4.5 g/dL (3.4-4.8); Alkaline Phosphatase 95 U/L (40-110); Anion Gap 13 mmol/L (10-20); BUN (Urea Nitrogen) 29 mg/dL (9.8-20.1); Bilirubin, Total 0.5 mg/dL (0.2-1.2); Calc. Creatinine Clearance 0 mL/min (70-130); Calcium 10.2 mg/dL (7.8-10.44); Carbon Dioxide 24 mmol/L (23-31); Chloride 107 mmol/L (98-107); Estimated GFR 39; Globulin 2.9 g/dL (2.4-3.5); Glucose 97 mg/dL (83-110); Potassium 4.3 mmol/L (3.5-5.1); Protein, Total 7.4 g/dL (5.8-8.1); Sodium 140 mmol/L (136-145)
== END 2023-06-22 07:41 | disposition home or self-care (01) ==
LOC: LABBT 07:40
PROVIDERS: ATTEND Internal Medicine Cardiovascular Disease
DX: Z01.812 Encounter for preprocedural laboratory examination (principal)
CPT/HCPCS: 80053; 85025

== ENCOUNTER 2023-10-02 08:50 | Emergency (ER) | payer MEDICARE ==
[2023-10-02 11:05] LABS: #Basophils 0.07 10x3/uL (0.0-0.2); %Basophils 0.7 % (0.0-1.0); %Eosinophils 3.2 % (0.0-10.0); %Lymphocytes 13.6 % (21.0-51.0); %Monocytes 8.1 % (0.0-10.0); %Neutrophils 74.2 % (42.0-75.0); Hematocrit 39.1 % (36.0-47.0); Hemoglobin 12.6 g/dL (12.0-16.0); Mean Corpuscular HGB CONC 32.2 g/dL (32.0-36.0); Mean Corpuscular Hemoglobin 27.5 pg (27.0-31.0); Mean Corpuscular Volume 85.4 fL (78.0-98.0); Mean Platelet Volume 9.1 fL (7.4-10.4); Platelet Count 304 10x3/uL (130-400); RBC Distribution Width 13.9 % (11.5-14.5); Red Blood Cell (RBC) Count 4.58 mill/uL (4.20-5.40)
[2023-10-02 11:21] LABS: ALT (SGPT) 20 U/L (8-55); AST (SGOT) 31 U/L (5-34); Albumin 3.8 g/dL (3.4-4.8); Alkaline Phosphatase 103 U/L (40-110); Anion Gap 17 mmol/L (10-20); BUN (Urea Nitrogen) 15 mg/dL (9.8-20.1); Bilirubin, Total 1.3 mg/dL (0.2-1.2); Calc. Creatinine Clearance 0 mL/min (70-130); Calcium 9.9 mg/dL (7.8-10.44); Carbon Dioxide 18 mmol/L (23-31); Chloride 105 mmol/L (98-107); Estimated GFR 63; Globulin 3.8 g/dL (2.4-3.5); Glucose 101 mg/dL (83-110); Lipase 23 U/L (8-78); Potassium 3.8 mmol/L (3.5-5.1); Protein, Total 7.6 g/dL (5.8-8.1); Sodium 136 mmol/L (136-145)
== END 2023-10-02 12:37 | disposition home or self-care (01) ==
LOC: ERS 08:50
DX: K59.00 Constipation, unspecified (principal); K43.5 Parastomal hernia without obstruction or gangrene; K42.9 Umbilical hernia without obstruction or gangrene; I10 Essential (primary) hypertension; E78.00 Pure hypercholesterolemia, unspecified; Z79.899 Other long term (current) drug therapy; Z79.82 Long term (current) use of aspirin
CPT/HCPCS: 74177; 80053; 83605; 83690; 85025